=== PATIENT | male | born 1955 | race Caucasian/White ===

== ENCOUNTER 2016-11-17 08:40 | Inpatient (IN) | payer OTHER ==
[~2016-11-17] VITALS: Ht 177.8 cm; Wt 88.5 kg
--- NOTE | 2016-11-17 08:58 | ED GI/GU/ABDOMINAL COMPLAINT ---
History of Present Illness General Chief Complaint: General Adult Stated Complaint: DIZZINESS, N/V Source: patient, family, old records, EMS Exam Limitations: no limitations Vital Signs & Intake/Output Vital Signs & Intake/Output Vital Signs Date Time Temp Pulse Resp B/P Pulse O2 O2 Flow FiO2 Ox Delivery Rate 11/17 1208 97.2 78 18 191/83 98 Room Air 11/17 1000 78 178/99 11/17 0850 95.6 70 16 176/111 98 Room Air Allergies Coded Allergies: Penicillins (UNKNOWN 11/17/16) Reconcile Medications No Known Home Medications Triage Nurses Notes Reviewed? yes Onset: Just prior to arrival Duration: minute(s):, constant, continues in ED Timing: recent history Quality/Severity: sharpness, vomiting Location: epigastric Radiation: no radiation Activities at Onset: none Prior Abdominal Problems: similar symptoms Past Sexual History: Unobtainable at this time Modifying Factors: Improves With: rest. Worsens With: movement. Associated Symptoms: loss of appetite, nausea/vomiting, dizziness HPI: 1 day prior to admission patient complained of right ear pain discomfort like an infection to use drops. Prior to admission patient be acutely dizzy with nausea and retching unable to stand without assistance. There's been no fever chills diarrhea abdominal pain chest pain cough shortness of breath headache dysuria rash bleeding. Past History Travel History Traveled to [place] past 21 day No Medical History Any Pertinent Medical History? none Surgical History Surgical History: non-contributory Psychosocial History What is your primary language Montserratian Family History Hx Contributory? No Review of Systems Review of Systems Constitutional: Reports: no symptoms. EENTM: Reports: no symptoms. Respiratory: Reports: no symptoms. Cardiovascular: Reports: no symptoms. GI: Reports: see HPI, nausea, vomiting. Genitourinary: Reports: no symptoms. Musculoskeletal: Reports: no symptoms. Skin: Reports: no symptoms. Neurological/Psychological: Reports: see HPI. Hematologic/Endocrine: Reports: no symptoms. Immunologic/Allergic: Reports: no symptoms. All Other Systems: Reviewed and Negative Physical Exam Physical Exam General Appearance: well developed/nourished, alert, awake, anxious, severe distress, obese Head: atraumatic, normal appearance Eyes: Bilateral: normal appearance, PERRL, normal inspection, other (nystagmus). Ears, Nose, Throat, Mouth: hearing grossly normal, moist mucous membrane, Tympanic normal Neck: normal inspection, supple, full range of motion, normal alignment Respiratory: normal breath sounds, chest non-tender, no respiratory distress, quiet respiration, lungs clear Cardiovascular: regular rate/rhythm, normal peripheral pulses, norml femoral pulses equa Peripheral Pulses: 4+ carotid (R), 4+ carotid (L), 2+ radial (R), 2+ radial (L) Gastrointestinal: normal bowel sounds, soft, non-tender, no organomegaly Male Genitals: normal genitalia Back: normal inspection, normal range of motion Extremities: normal range of motion, no ligament instability Neurologic/Psych: no motor/sensory deficits, awake, alert, oriented x 3, normal mood/affect, 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 No Severe Sepsis Present: No Septic Shock Present: No Progress Differential Diagnosis: vestibular neuronitis, vertigo Plan of Care: Orders Procedure Date/time Status CBC WITHOUT DIFFERENTIAL 11/18 06 Active Regular Diet 11/17 D Active Pathway - chart 11/17 1414 Active House Staff 11/17 1414 Active Patient Data 11/17 1359 Active XRY-PORTABLE CHEST XRAY 11/17 1347 Active Add-on Test (ER Only) 11/17 1347 Active OXYGEN SETUP (GEN) 11/17 1327 Active Saline Lock 11/[address] in observation 11/17 1327 Active Vital Signs 11/17 1327 Active Activity/Ambulation 11/17 1327 Active Code Status 11/17 1327 Active PARTIAL THROMBOPLASTIN TIME 11/17 0914 Complete PROTHROMBIN TIME 11/17 0914 Complete LIPASE 11/17 0844 Complete COMPREHENSIVE METABOLIC PANEL 11/17 0844 Complete CBC WITHOUT DIFFERENTIAL 11/17 0844 Complete VTE Mechanical Prophylaxis 11/17 UNK Active Intake & Output 11/17 UNK Active Laboratory Tests 11/17/16 0914: Anion Gap 9, Estimated GFR > 60, BUN/Creatinine Ratio 16.7, Glucose 138 H, Calcium 8.6, Total Bilirubin 0.7, AST 16 L, ALT 30, Alkaline Phosphatase 49, Total Protein 6.3, Albumin 3.8, Globulin 2.5, Albumin/Globulin Ratio 1.5, Lipase 67, PT 10.2, INR 0.97, APTT 29, CBC w Diff MAN DIFF ORDERED, RBC 3.67 L, MCV 101.3 H, MCH 35.2 H, RDW 15.9 H, MPV 7.6, Gran % 51.0, Lymphocytes % 46.5, Monocytes % 1.3 L, Eosinophils % 0.8, Basophils % 0.4, Absolute Granulocytes 0.8 L, Segmented Neutrophils 41 L, Band Neutrophils 7 H, Absolute Lymphocytes 0.7 L, Lymphocytes 49, Monocytes 1 L, Absolute Monocytes 0 L, Eosinophils 2, Absolute Eosinophils 0, Absolute Basophils 0, Platelet Estimate DECREASED, Polychromasia 1+, Poikilocytosis 2+, Anisocytosis 1+, Macrocytic Cells 1+, Ovalocytes 1+, PUBS MCHC 34.8 Diagnostic Imaging: Viewed by Me: CT Scan. Discussed w/RAD: CT Scan. Radiology Impression: 1. No acute intracranial pathology. 2. Temporal bones (and internal auditory canals) are unremarkable. Initial ED EKG: none Comments: Despite multiple interventions continues to have dizziness and unable to open eyes. Departure Departure Disposition: STILL A PATIENT Condition: Stable Clinical Impression Primary Impression: Vestibular neuronitis of right ear Referrals: BROOKLYNN WREN MD (PCP/Family) Departure Forms: Customer Survey General Discharge Information Prescriptions: Current Visit Scripts No Known Home Medications Observation Note Spoke With: HANNAH JUNIOR,JARAD Vázquez Physician Advisor Notified: RICKY ELIZABETH DO Place Patient In: Non-ED OBS Care Area Rationale for Observation: My rational for observation is as follows unable to ambulate will need assistance with vertiginous symptomatology control her blood pressure ensure safety medication adjustment. Critical Care Note Critical Care Note Critical Care Time: 30-74 min (45)
[2016-11-17 09:31] LABS: ABSOLUTE BASOPHIL COUNT 0 /CUMM (0.0-0.2); ABSOLUTE EOSINOPHIL COUNT 0 /CUMM (0.0-0.7); ABSOLUTE GRANULOCYTE CT 0.8 /CUMM (1.4-6.5); ABSOLUTE LYMPH COUNT 0.7 /CUMM (1.2-3.4); ABSOLUTE MONOCYTE COUNT 0 /CUMM (0.10-0.60); BASOPHIL % 0.4 % (0.0-2.0); EOSINOPHIL % 0.8 % (0-5); HEMATOCRIT 37.2 % (42-52); MEAN CORPUSCULAR HGB 35.2 PG (27.0-31.0); MEAN CORPUSCULAR HGB CONC 34.8 G/DL (33.0-37.0); MEAN CORPUSCULAR VOLUME 101.3 FL (80.0-94.0); MEAN PLATELET VOLUME 7.6 FL (7.4-10.4); PLATELET COUNT 65 /CUMM (130-400); RBC DISTRIBUTION WIDTH 15.9 % (11.5-14.5); RED BLOOD CELL CT 3.67 /CUMM (4.70-6.10); WHITE BLOOD CELL COUNT 1.6 /CUMM (4.8-10.8)
--- NOTE | 2016-11-17 12:32 | CT SCAN REPORT ---
EXAMINATION: CT HEAD WITHOUT IV CONTRAST CT INTERNAL AUDITORY CANALS WITHOUT IV CONTRAST CLINICAL INFORMATION: Intractable vertigo. Possible vestibular neuritis. COMPARISON: CT of head, 06/20/2009 TECHNIQUE: Noncontrast imaging of the head was performed using standard protocol from the level of the skull base to the vertex. Axial images are presented at 2.5 mm and 5 mm slice thickness. Also, noncontrast imaging was performed through the internal auditory canals/temporal bones using 0.625 mm collimation. Dose length product was 1283 mGy-cm. FINDINGS: Head: The brain parenchyma has normal attenuation with well-preserved verduzco-white matter differentiation. No evidence of acute major vascular territory infarction, hemorrhage, extra axial fluid collection, focal mass effect or midline shift. The ventricles have normal size and configuration. The sulci and basilar cisterns are unremarkable. The cerebellar hemispheres, cerebellar peduncles and brainstem are unremarkable. The calvarium is intact and the visualized paranasal sinuses, mastoid air cells and middle ear cavities are clear. Temporal bones: Cerumen is present within each external auditory canal. The ossicles have normal shape and alignment. The middle ear cavities and aditus ad antrum are well aerated. The otic capsule structures are normal. The cochlea and its modiolus are unremarkable, bilaterally. Normal semicircular canals and vestibular aqueducts are seen, bilaterally. The internal auditory canals are unremarkable. There is no evidence of osseous erosion or skull base lesion. IMPRESSION: 1. No acute intracranial pathology. 2. Temporal bones (and internal auditory canals) are unremarkable.
[2016-11-17 14:04] LABS: PT 10.2 SEC (9.4-12.5); PTT 29 SEC (25-37)
--- NOTE | 2016-11-17 14:21 | RADIOLOGY REPORT ---
EXAMINATION: XR PORTABLE CHEST CLINICAL INFORMATION: Dizziness. COMPARISON: None. TECHNIQUE: Portable AP view of the chest was obtained. FINDINGS: The lungs are hypoinflated, without focal airspace consolidation. No pleural effusions or pneumothoraces are identified. Cardiomediastinal contours are within normal limits. Soft tissues are unremarkable. No acute osseous abnormality is identified. Mild degenerative changes involving the bilateral glenohumeral joints. IMPRESSION: No acute pulmonary process.
--- NOTE | 2016-11-17 15:14 | History & Physical ---
AIDAN BERANRDO MD 11/17/16 1513: General Information and HPI MD Statement: I have seen and personally examined PAULETTE BUTLER and documented this H&P. The patient is a 60 year old M who presented with a patient stated chief complaint of vertigo. Source of Information: patient, family, old records Exam Limitations: no limitations History of Present Illness: Mr. Butler is a 60 year old male with PMH vertigo and arthritis and PSH of 5 bilateral knee operations who presents to the [place] ED with chief complaint of severe dizziness. Patient endorses acute onset of dizziness this morning that caused him to have a controlled fall where he landed on his stomach (he denies head stroke). This dizziness is similar in nature to his prior episode of vertigo that happened about 6 years ago when he was diagnosed with vertigo. Associated symptoms currently include a few day history of right ear pain (he had taken a few drops of otic antibiotics), dizziness whenever his eyes are open, blurry vision, nausea, dry heaving without vomiting, diaphoresis and fatigue. Patient denies recent illness, fever, chills, enlarging lymph nodes, recent weight loss, hearing changes, right ear drainage, tinnitus, headache, chest pain, palpitations, shortness of breath, abdominal pain or changes in stooling/urination. Social history is significant for no current or prior history of smoking, occasional glasses of wine and no history of illicit drug use. 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 Past surgical history is only significant for knee surgery (bilateral). Allergies/Medications Allergies: Coded Allergies: Penicillins (UNKNOWN 11/17/16) Compliance With Home Meds: GOOD Past History Travel History Traveled to [place] past 21 day No Medical History Neurological: vertigo Musculoskeletal: Arthritis (knees) Surgical History Surgical History: non-contributory Past Family/Social History Psychosocial History Where do you live? Home Who Do You Live With? spouse Services at Home: None Primary Language: Hungarian Smoking Status: Never Smoked ETOH Use: occasional use Illicit Drug Use: denies illicit drug use Living Will? unknown Functional Ability ADLs Independent: dressing, eating, toileting, bathing. Ambulation: independent IADLs Independent: shopping, housework, finances, food prep, telephone, transportation , medication admin. Sexual History Sexually Active Yes Employment History Employment Employed Profession/Employer Salesman Review of Systems Review of Systems Constitutional: Reports: diaphoresis, malaise. Denies: chills, fever, unexplained weight loss. EENTM: Reports: blurred vision, ear pain. Denies: ear redness, hearing changes, nasal congestion, throat pain. Cardiovascular: Denies: chest pain, palpitations, syncope. Respiratory: Denies: cough, short of breath, wheezing. GI: Reports: nausea. Denies: abdominal pain, bloating, constipation, diarrhea, distention, changes in stool, vomiting, steatorrhea. Genitourinary: Denies: dysuria. Musculoskeletal: Denies: back pain. Skin: Denies: change in skin color, change in hair/nails. Neurological/Psychological: Reports: headache. Denies: confusion, tremors, weakness. Hematologic/Endocrine: Denies: bruising, bleeding. Immunologic/Allergic: Denies: splenectomy. All Other Systems: Reviewed and Negative Exam & Diagnostic Data Last 24 Hrs of Vital Signs/I&O Vital Signs Date Time Temp Pulse Resp B/P Pulse O2 O2 Flow FiO2 Ox Delivery Rate 11/17 1450 99 Room Air 11/17 1419 97.2 76 18 165/91 95 Room Air 11/17 1208 97.2 78 18 191/83 98 Room Air 11/17 1000 78 178/99 11/17 0850 95.6 70 16 176/111 98 Room Air Intake & Output 11/17 1600 11/17 0800 11/17 0000 Intake Total 1000 Output Total Balance 1000 Intake, IV 1000 Physical Exam General Appearance Alert, Oriented X3, Cooperative, Mild Distress Skin No Rashes, No Significant Lesion HEENT Atraumatic, EOMI, Mucous Membr. moist/pink, +HORIZONTAL NYSTAGMUSM LEFT TO RIGHT Neck Supple, +2 Carotid Pulse wo Bruit Lymphatic Cervical nl Cardiovascular Regular Rate, Normal S1, Normal S2 Lungs Clear to Auscultation, Normal Air Movement Abdomen Normal Bowel Sounds, Soft, No Tenderness, No Hepatospenomegaly, No Masses Neurological Normal Speech, Strength at 5/5 X4 Ext, Normal Tone, Sensation Intact, Cranial Nerves 3-12 NL Extremities No Clubbing, No Cyanosis, No Edema Vascular Pulses Symmetrical Last 24 Hrs of Labs/Shekhar: Laboratory Tests 11/17/16 0914: Anion Gap 9, Estimated GFR > 60, BUN/Creatinine Ratio 16.7, Glucose 138 H, Calcium 8.6, Total Bilirubin 0.7, AST 16 L, ALT 30, Alkaline Phosphatase 49, Total Protein 6.3, Albumin 3.8, Globulin 2.5, Albumin/Globulin Ratio 1.5, Lipase 67, PT 10.2, INR 0.97, APTT 29, CBC w Diff MAN DIFF ORDERED, RBC 3.67 L, MCV 101.3 H, MCH 35.2 H, RDW 15.9 H, MPV 7.6, Gran % 51.0, Lymphocytes % 46.5, Monocytes % 1.3 L, Eosinophils % 0.8, Basophils % 0.4, Absolute Granulocytes 0.8 L, Segmented Neutrophils 41 L, Band Neutrophils 7 H, Absolute Lymphocytes 0.7 L, Lymphocytes 49, Monocytes 1 L, Absolute Monocytes 0 L, Eosinophils 2, Absolute Eosinophils 0, Absolute Basophils 0, Platelet Estimate DECREASED, Polychromasia 1+, Poikilocytosis 2+, Anisocytosis 1+, Macrocytic Cells 1+, Ovalocytes 1+, PUBS MCHC 34.8 Diagnostic Data EKG Results None. CXR Results FINDINGS: The lungs are hypoinflated, without focal airspace consolidation. No pleural effusions or pneumothoraces are identified. Cardiomediastinal contours are within normal limits. Soft tissues are unremarkable. No acute osseous abnormality is identified. Mild degenerative changes involving the bilateral glenohumeral joints. IMPRESSION: No acute pulmonary process. Other Results EXAMINATION: CT HEAD WITHOUT IV CONTRAST CT INTERNAL AUDITORY CANALS WITHOUT IV CONTRAST CLINICAL INFORMATION: Intractable vertigo. Possible vestibular neuritis. COMPARISON: CT of head, 06/20/2009 TECHNIQUE: Noncontrast imaging of the head was performed using standard protocol from the level of the skull base to the vertex. Axial images are presented at 2.5 mm and 5 mm slice thickness. Also, noncontrast imaging was performed through the internal auditory canals/temporal bones using 0.625 mm collimation. Dose length product was 1283 mGy-cm. FINDINGS: Head: The brain parenchyma has normal attenuation with well-preserved verduzco-white matter differentiation. No evidence of acute major vascular territory infarction, hemorrhage, extra axial fluid collection, focal mass effect or midline shift. The ventricles have normal size and configuration. The sulci and basilar cisterns are unremarkable. The cerebellar hemispheres, cerebellar peduncles and brainstem are unremarkable. The calvarium is intact and the visualized paranasal sinuses, mastoid air cells and middle ear cavities are clear. Temporal bones: Cerumen is present within each external auditory canal. The ossicles have normal shape and alignment. The middle ear cavities and aditus ad antrum are well aerated. The otic capsule structures are normal. The cochlea and its modiolus are unremarkable, bilaterally. Normal semicircular canals and vestibular aqueducts are seen, bilaterally. The internal auditory canals are unremarkable. There is no evidence of osseous erosion or skull base lesion. IMPRESSION: 1. No acute intracranial pathology. 2. Temporal bones (and internal auditory canals) are unremarkable. Assessment/Plan Assessment: Mr. Butler is a pleasant 60 year old male with PMH vertigo and knee arthritis who presents with chief complaint of dizziness. Patient reports that this morning, he had a sudden onset of dizziness while walking, associated with nausea, dry heaving and diaphoresis that resulted in a fall. He denies head strike and notes no other preceding symptoms prior to the fall, including palpitations, lightheadedness. Current review of systems is positive for nausea with dry heaving, diaphoresis, lethargy/fatigue, dizziness as long as his eyes are open and 2 day history of right ear pain without drainage or change in hearing. He currently denies fever, chills, tinnitus, sore throat, recent weight loss, chest pain, palpitations, abdominal pain, change in bowel/bladder function or confusion. In the ED: Vital signs showed T 97.2, HR 78, RR 18, BP 191/83 and O2 saturation of 98% on RA. Labs showed pancytopenia/macrocytic anemia with WBC 1.6, 7 bands, H&H 12.9/37.2, MCV 101.3, Plt 65, and unremarkable BEP. INR was 0.97. Head CT was done and showed no acute intracranial pathology, temporal bones (and internal auditory canals) were unremarkable. Patient is admitted to the general medicine floor and the following is the management: 1. Vertigo * Patient given a scopolamine patch, reglan, pepcid, ativan, zofran and 25 mg PO meclizine in the ED * Due to severe nausea and the sensation of spinning, Anderson maneuver not tried * Will consider once these symptoms improve * Continue meclizine 25 mg PO TID PRN for nausea/vomiting/dizziness * Zofran 4mg IV Q6P 2. Pancytopenia/ macrocytic anemia * DDx included MDS, viral-induced, underlying malignancy * Will follow CBC * Will place a heme/onc consult, will f/u recommendations * Hepatitis panels, HIV and utox ordered, f/u results 3. Right ear pain * Patient endorsed 2/10 persistent right ear pain that was similar in nature to prior ear infections * Head CT WNL, no fever, and ear exam limited 2/2 profuse ear wax in auditory canal * Will hold off treatment for now, continue to monitor 4. Uncontrolled blood pressure * BP significantly elevated on admission to 191/83 * Vital signs Q shift * Amlodipine restarted as BP remains elevated 5. Arthritis * For knee pain, will start with tylenol for moderate pain * Vicodin for moderate pain and morphine for severe pain FULL CODE DVTP: ALPS Diet: Regular Mild pain pathway As Ranked By This Provider Problem List: 1. Vestibular neuronitis of right ear Core Measures/Miscellaneous Acute Coronary Syndrome ACS Diagnosis: No Cerebrovascular Accident CVA/TIA Diagnosis: No Congestive Heart Failure CHF Diagnosis: No Venous Thromboembolism VTE Risk Factors: Acute medical illness, Age > 40, Obesity VTE Prophylaxis Ordered Inpt: Mechanical (ALPS/TEDS) No Mech VTE prophylaxis d/t: No contraindications No VTE Pharm Prophylaxis d/t: Platelets below ref range VTE Diagnosis: No VTE Type: NONE VTE Confirmed by (Test): NONE Severe Sepsis Severe Sepsis Present: No Septic Shock Septic Shock Present: No Miscellaneous Documentation Attending Case Discussed With: RIP JUNIOR,KAIDEN Primary Care Physician: BROOKLYNN WREN MD Patient sees these Specialists None. Level of Patient Care: General Medicine ELLIOT WALTER 11/17/16 1802: Attending MD Review Statement Attending Statement Attending MD Statement: examined this patient, discuss w/resident/PA/SHELL MACHINE OPERATOR, agreed w/resident/PA/SHELL MACHINE OPERATOR, reviewed EMR data (avail) Attending Assessment/Plan: Pt seen and examined in ER. presenting with dizziness and vertigo. No PMH but had some rt side ear pain for which he was given antibiotic ear drops few months ago. had cold a few weeks ago but patient denies being sick recently. In ER pt found to have pancytopenia with wbc of 1.6 and platelets of 65. will do workup of pancytopenia,will send hepatitis panel, hiv, tox screen, heme onc consult. will get vit b12 and folate levels. htn- will start on norvasc for now. will f/u on repeat bp. d/w pt the care plan. CINDA JUNIOR,OSVALDOISAACRHIANNA 11/17/161813: Resident Review Statement Resident Statement: examined this patient, discussed with internal communications writer, agreed with internal communications writer, discussed with family, reviewed EMR data (avail), discussed with nursing , discussed with case mgmt, reviewed images, amended to note Other Findings: 60 yo male with pmh of vertigo, arthritis and overweight came to ER due to dizziness and nausea from today morning. While he was standing up from his bed, he had dry heave/dizziness and fell down on the floor on belly. He described the dizziness as the room is spinning, and it continues as long as he opens his eyes. He denies any headache, diplopia, weakness/numbness/tingling sensation. He had similar episode of vertigo about 6 YA, and he was managed with antiemetics at that time which resolved the symptom in 3 days. Otherwise, he c/o Rt. ear pain without fever/hearing loss/ringing sound. He used ear drops for few years. He denies loss of appetite/weight loss or lymphadenopathy. Never smoked, 1-2 romel/beers few times per week. No illicit drugs. Initial V/S: 95.6F SD 70 RR 16 BP 176/111 O2 98% on RA (SBP max 191) On exam, pt was lying on bed, closing his eyes, in mild discomfort, HEENT: horizontal nystagmus (Lt. to Rt.), EOM intact, PERRLA, moist mucosa, neck : no carotid bruit, supple, obese, no cervical LAD, heart: regular rate, normal S1/S2 , no murmurs, Lung: clear, Abdomen: soft, non-tender, normal bowel sound, LE: no edema, normal pulses, neurologic: motor 5/5, cranial nerves grossly intact, [id number] intact. Labs: WBC 1.6, granulocytes 51% lym 46.5%, bandemia 7 Hb/hct 12.9/37.2 MCV 101.3 Plt 65, INR 0.97, Na 140 K 4.3 BUN/Cr 15/0.9, trop < 0.01 Imaging: Head CT / internal auditory canals - 1. No acute intracranial pathology. 2. Temporal bones (and internal auditory canals) are unremarkable. CXR: No acute pulmonary process. 1. Vertigo: BPPV vs. vestibular neuritis vs. hypertensive urgency. Continue BP with po amlodipine, nausea management with IV zofran/antiemetics. 2. HTN: new onset, pt didn't get any meds before, 5mg amlodipine was initiated, check lipid panel in AM. 3. Pancytopenia: no baseline CBC in [facility] record. leukopenia, macrocytic anemia, thrombocytopenia. Will get hematology consult. mechanical DVT ppx with thrombocytopenia. Monitor CBC in AM. check HIV, hepatitis panel, Vit B12/folate. DVT ppx : mechanical, full code.
[2016-11-17] MEDS ORDERED: AMLODIPINE BESYL5 M1 PO (16:10)
[2016-11-17] MEDS ORDERED: ATORVASTATIN CA20 M1 PO (16:52)
[2016-11-17 17:54] VITALS: BP 140/80
--- NOTE | 2016-11-17 18:08 | Admission Certification ---
Admission Certification Certification Statement - As attending physician, I certify that at the time of - admission, based on clinical presentation, severity of - symptoms, need for further diagnostic testing and - therapeutic interventions, and risk of adverse outcomes - without in-hospital treatment, in my clinical assessment, - this patient requires an acute hospital stay for a minimum - of two nights or longer. I have also considered psychsocial - factors such as support system, advanced age, financial - issues, cognitive issues, and failed out-patient treatments, - past re-admission history, safety of patient, and lack of - compliance as applicable. Specific rationale supporting this admission is: new onset pancytopenia with vertigo causing fall.
--- NOTE | 2016-11-17 19:59 | Cons- Hematology ---
General Information and HPI Consulting Request Date of Consult: 11/17/16 Requested By: ELLIOT WALTER MD Reason for Consult: Pancytopenia Source of Information: patient, old records Exam Limitations: no limitations History of Present Illness: Mr. Bullard is a 60-year-old male with no significant medical history presented to the ED with dizziness and nausea for 1 day. Symptoms started this morning and has worsened with nausea. He feels that the room is spinning around and making him nauseated. He denies any emesis. He had similar episode previously. He denies any loss of vision, loss of consciousness, weakness, numbness, or other associated neurological symptoms. He has not been sick recently. He has no issues with his bowels. 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 He has no bleeding. He denies any fever, chills, abdominal pain, shortness of breath, chest pain, weight loss, or new mass. He thinks he has an ear infectious. There is some ringing in his ear. On admission, he was noted to have a WBC of 1.6, Hgb 12.9, Hct 37.2, MCV 101.3, and platelet of 65,000. He had 7% bands. Head CT was unremarkable. Chest x- ray was unremarkable. He was admitted for further manage. Of note, he was noted to have lower WBC (2.3) and platelet (90,000s) back in 2015. He did not have insurance and was not able to get work up done at that time. Allergies/Medications Allergies: Coded Allergies: Penicillins (UNKNOWN 11/17/16) Current Medications: Current Medications Sig/Ayse Start time Last Medication Dose Route Stop Time Status Admin Acetaminophen 650 MG Q6P PRN 11/17 1700 AC PO Acetaminophen/ 1 TAB Q6P PRN 11/17 1700 AC Hydrocodone Bitart PO Amlodipine Besylate 0 .STK-MED ONE 11/17 1630 DC PO Amlodipine Besylate 5 MG DAILY 11/17 1612 AC 11/17 PO 1631 Atorvastatin Calcium 20 MG DAILY 11/18 1000 CAN PO Cyanocobalamin 1,000 MCG DAILY 11/17 1918 AC PO Famotidine 0 .STK-MED ONE 11/17 0858 DC IV Famotidine 20 MG ONCE ONE 11/17 0845 DC 11/17 IV 02/08 0846 0903 Labetalol HCl 10 MG ONCE ONE 11/17 1400 CAN IV 11/17 1401 Lorazepam 0 .STK-MED ONE 11/17 1030 DC .ROUTE Lorazepam 1 MG ONCE ONE 11/17 1015 DC 02/08 IV 11/17 1016 1051 Lorazepam 0 .STK-MED ONE 11/17 0858 DC .ROUTE Lorazepam 1 MG ONCE ONE 11/17 0845 DC /08 IV 11/17 0846 0903 Meclizine HCl 25 MG TID PRN 11/17 1615 AC PO Meclizine HCl 0 .STK-MED ONE 11/17 1030 DC PO Meclizine HCl 25 MG ONCE ONE 11/17 1015 DC / PO 11/17 1016 1051 Metoclopramide HCl 0 .STK-MED ONE 11/17 0858 DC .ROUTE Metoclopramide HCl 10 MG ONCE ONE 11/17 0845 DC / IV 11/17 0846 0903 Morphine Sulfate 2 MG Q4P PRN 11/17 1700 AC IV Ondansetron HCl 4 MG Q6P PRN 11/17 1615 AC IV Ondansetron HCl 4 MG ONCE ONE 11/17 1045 DC /08 IV 11/17 1046 1051 Ondansetron HCl 0 .STK-MED ONE 11/17 1043 DC .ROUTE Scopolamine HBr 1 PAT ONE ONE 11/17 0845 DC 11/17 TOP 11/17 0846 0855 Sodium Chloride 1,000 ML BOLUS ONE 11/17 1045 DC /08 IV 11/17 1144 1051 Sodium Chloride 1,000 ML BOLUS ONE 11/17 0845 DC /08 IV 11/17 0944 0903 Review of Systems Review of Systems Constitutional: Reports: weakness. Denies: chills, fever, unexplained weight loss. EENTM: Denies: blurred vision, double vision, visual changes. Cardiovascular: Denies: chest pain, edema, syncope. Respiratory: Denies: cough, hemoptysis, orthopnea, short of breath, sputum production. GI: Reports: nausea. Denies: abdominal pain, bloating, constipation, diarrhea, distention, melena, bloody stool, changes in stool, vomiting. Genitourinary: Denies: discharge, dysuria, frequency, hematuria. Musculoskeletal: Denies: back pain, joint pain. Skin: Denies: change in skin color, change in hair/nails. Neurological/Psychological: Denies: cognitive dysfunction, confusion. Hematologic/Endocrine: Reports: bruising. Denies: bleeding. Immunologic/Allergic: Denies: lymphadenopathy. All Other Systems: Reviewed and Negative Past History Travel History Traveled to [place] past 21 day No Medical History Blood Transfusion Hx: No Neurological: vertigo EENT: NONE Cardiovascular: NONE Respiratory: NONE Gastrointestinal: NONE Hepatic: NONE Renal: NONE Musculoskeletal: Arthritis (knees) Psychiatric: NONE Endocrine: NONE Blood Disorders: NONE Cancer(s): NONE INTERNAL CONTROL MANAGER/Reproductive: NONE Surgical History Surgical History: non-contributory Psychosocial History Where Do You Live? Home Who Do You Live With? spouse Services at Home: None Primary Language: Belarusian Smoking Status: Never Smoked ETOH Use: occasional use Illicit Drug Use: denies illicit drug use Living Will? unknown Functional Ability ADLs Independent: dressing, eating, toileting, bathing. Ambulation: independent IADLs Independent: shopping, housework, finances, food prep, telephone, transportation , medication admin. Employment History Employment: Employed Profession/Employer: [employer] Exam & Diagnostic Data Vital Signs and I&O Vital Signs Date Time Temp Pulse Resp B/P Pulse O2 O2 Flow FiO2 Ox Delivery Rate 11/17 1754 97.6 64 20 140/80 97 Room Air 11/17 1631 97.2 88 18 161/99 08 1625 88 18 161/99 94 Room Air 11/17 1450 99 Room Air 11/17 1419 97.2 76 18 165/91 95 Room Air 11/17 1208 97.2 78 18 191/83 98 Room Air 11/17 1000 78 178/99 08 0850 95.6 70 16 176/111 98 Room Air Intake & Output 11/17 1600 08 0800 11/17 0000 Intake Total 1000 Output Total Balance 1000 Intake, IV 1000 Physical Exam General Appearance: well developed/nourished, no apparent distress, alert, awake , comfortable Head: atraumatic, normal appearance Eyes: Bilateral: PERRL, EOMI, pale conjunctivae. Ears, Nose, Throat: normal pharynx, normal ENT inspection Neck: normal inspection, supple Respiratory: normal breath sounds, chest non-tender, no respiratory distress Cardiovascular: regular rate/rhythm Gastrointestinal: normal bowel sounds, soft, non-tender, no organomegaly Back: normal inspection Neurologic/Psych: no motor/sensory deficits, awake, alert, oriented x 3 Skin: warm/dry Lymphatic: no anterior cervical virgie Last 48 Hours of Lab Results: Laboratory Tests 11/17 11/17 0914 0844 Chemistry Sodium (137 - 145 mmol/L) 140 Potassium (3.5 - 5.1 mmol/L) 4.3 Chloride (98 - 107 mmol/L) 106 Carbon Dioxide (22 - 30 mmol/L) 25 Anion Gap (5 - 16) 9 BUN (9 - 20 mg/dL) 15 Creatinine (0.7 - 1.2 mg/dL) 0.9 Estimated GFR (>60 ml/min) > 60 BUN/Creatinine Ratio (7 - 25 %) 16.7 Glucose (65 - 99 mg/dL) 138 H Hemoglobin A1c Pending Calcium (8.4 - 10.2 mg/dL) 8.6 Total Bilirubin (0.2 - 1.3 mg/dL) 0.7 AST (17 - 59 U/L) 16 L ALT (21 - 72 U/L) 30 Alkaline Phosphatase (< 127 U/L) 49 Troponin I (<0.11 ng/ml) < 0.01 Total Protein (6.3 - 8.2 g/dL) 6.3 Albumin (3.5 - 5.0 g/dL) 3.8 Globulin (1.9 - 4.2 gm/dL) 2.5 Albumin/Globulin Ratio (1.1 - 2.2 %) 1.5 Lipase (23 - 300 U/L) 67 Vitamin B12 (239 - 931 pg/mL) 225 L Folate (2.76 - 20.0 ng/mL) 11.7 Coagulation PT (9.4 - 12.5 SEC) 10.2 INR (0.90 - 1.17) 0.97 APTT (25 - 37 SEC) 29 Hematology CBC w Diff MAN DIFF ORDERED WBC (4.8 - 10.8 /CUMM) 1.6 L RBC (4.70 - 6.10 /CUMM) 3.67 L Hgb (14.0 - 18.0 G/DL) 12.9 L Hct (42 - 52 %) 37.2 L MCV (80.0 - 94.0 FL) 101.3 H MCH (27.0 - 31.0 PG) 35.2 H RDW (11.5 - 14.5 %) 15.9 H Plt Count (130 - 400 /CUMM) 65 L MPV (7.4 - 10.4 FL) 7.6 Gran % (42.2 - 75.2 %) 51.0 Lymphocytes % (20.5 - 51.1 %) 46.5 Monocytes % (1.7 - 9.3 %) 1.3 L Eosinophils % (0 - 5 %) 0.8 Basophils % (0.0 - 2.0 %) 0.4 Absolute Granulocytes (1.4 - 6.5 /CUMM) 0.8 L Segmented Neutrophils (42.2 - 75.2 %) 41 L Band Neutrophils (0.0 - 5.0 %) 7 H Absolute Lymphocytes (1.2 - 3.4 /CUMM) 0.7 L Lymphocytes (20.5 - 51.1 %) 49 Monocytes (1.7 - 9.3 %) 1 L Absolute Monocytes (0.10 - 0.60 /CUMM) 0 L Eosinophils (0 - 5.0 %) 2 Absolute Eosinophils (0.0 - 0.7 /CUMM) 0 Absolute Basophils (0.0 - 0.2 /CUMM) 0 Platelet Estimate (ADEQUATE) DECREASED Polychromasia 1+ Poikilocytosis 2+ Anisocytosis 1+ Macrocytic Cells 1+ Ovalocytes 1+ PUBS MCHC (33.0 - 37.0 G/DL) 34.8 Serology Hepatitis A IgM Ab (NONREACTIVE) Pending Hep Bs Antigen (NONREACTIVE) Pending Hep B Core IgM Ab Conf (NONREACTIVE) Pending Hepatitis C Antibody (NONREACTIVE) Pending HIV 1&2 Ab Western Blot (NONREACTIVE) NONREACTIVE Toxicology Serum Alcohol (<10 MG/DL) < 10.0 Imaging/Other Studies: CXR 11/17/2016: No acute pulmonary process. Head CT 11/17/2016: No acute pulmonary process. Assessment/Plan Assessment: Mr. Bullard is a 60-year-old male with vertigo who presented to the hospital with vertigo with nasuea. On evaluation, he was noted to have pancytopenia. This pancytopenia is slightly worse as compared to June 2016. Peripheral blood smear revealed decreased WBC and platelet. WBC are mostly bands and hypersegmented neutrophils. His RBC is macrocytic with few ovalocytes and elliptocytes. There are few basophillic stippling. He has no obvious history of medication induced pancytopenia. He is not febrile to suggest infectious etiology. He does use alcohol which may trigger his pancytopenia if he had alcohol recently. Alcohol level was normal. Due to his alcohol usage, he may have nutrition deficiency. Vitamin B12 and foate should be checked. Other option would be copper level. Viral infection may also cause some of his findings. Hepatitis, HIV, EBV, CMV, and [id number]. Ticke-borne disease will be less likely with the season. Underlying marrow pathology is less likely at the moment with the differentials on CBC. Vitamin B12 was noted to be low. He should have this replaced. Vitamin B12 may be given 1000 mcg daily by IV or PO. Recommendations: 1. Check MMA 2. Replete vitamin B12 1000 mcg PO daily (every day) or 1000 mcg IV (daily for 1 week, then 1 every 4 weeks) 3. He may need to have liver and spleen evaluation 4. Consider checking copper level 6. Consider iron studies with ferritin 7. Follow up hepatitis panel, HIV, EBV 8. Daily CBC Problem List: 1. Pancytopenia Other Findings/Comments: Please call [phone] with any questions or concerns. Consult Acknowledgment - Thank you for your consult request.
[2016-11-17 22:24] VITALS: BP 142/80
[2016-11-18 06:02] VITALS: BP 130/70
--- NOTE | 2016-11-18 07:47 | PN- Housestaff ---
See Addendum Subjective Follow-up For: Severe dizziness resulting in fall Pancytopenia Elevated BP Subjective: Patient seen and examined at bedside this AM. He reports he remains extremely dizzy and cannot open his eyes or move much or this greatly exacerbates the dizziness. His dizziness was so severe he was unable to undress out of his street clothes to get into a hospital gown. Review of Systems Constitutional: Denies: chills, fever. EENTM: Reports: blurred vision. Denies: nasal congestion. Cardiovascular: Denies: chest pain, palpitations, syncope. Respiratory: Denies: cough, short of breath, sputum production. Gastrointestinal: Reports: nausea. Denies: abdominal pain, vomiting. Genitourinary: Denies: dysuria. Musculoskeletal: Denies: muscle pain. Skin: Denies: rash. Neurological/Psychological: Reports: headache (Slight, from dizziness). Denies: pre-existing deficit. Hematologic/Endocrine: Denies: bruising, bleeding. Objective Last 24 Hrs of Vital Signs/I&O Vital Signs Date Time Temp Pulse Resp B/P Pulse O2 O2 Flow FiO2 Ox Delivery Rate 11/18 0602 97.7 73 20 130/70 94 Room Air 11/17 2224 98.3 72 20 142/80 93 Room Air 11/17 1754 97.6 64 20 140/80 97 Room Air 11/17 1631 97.2 88 18 161/99 0208 1625 88 18 161/99 94 Room Air 11/17 1450 99 Room Air 11/17 1419 97.2 76 18 165/91 95 Room Air 11/17 1208 97.2 78 18 191/83 98 Room Air 11/17 1000 78 178/99 Intake & Output 11/18 1600 11/18 0800 11/18 0000 Intake Total 480 Output Total Balance 480 Intake, Oral 480 Patient 195 lb Weight Physical Exam General Appearance: Alert, Oriented X3, Cooperative, Mild Distress Other Physical Findings: Skin No Rashes, No Significant Lesion HEENT Atraumatic, EOMI, Mucous Membr. moist/pink, +HORIZONTAL NYSTAGMUSM LEFT TO RIGHT Neck Supple, +2 Carotid Pulse wo Bruit Lymphatic Cervical nl Cardiovascular Regular Rate, Normal S1, Normal S2 Lungs Clear to Auscultation, Normal Air Movement Abdomen Normal Bowel Sounds, Soft, No Tenderness, No Hepatospenomegaly, No Masses Neurological Normal Speech, Strength at 5/5 X4 Ext, Normal Tone, Sensation Intact, Cranial Nerves 3-12 NL Extremities No Clubbing, No Cyanosis, No Edema Vascular Pulses Symmetrical Current Medications: Current Medications Sig/Ayse Start time Last Medication Dose Route Stop Time Status Admin Acetaminophen 650 MG Q6P PRN 11/17 1700 AC PO Acetaminophen/ 1 TAB Q6P PRN 11/17 1700 AC Hydrocodone Bitart PO Amlodipine Besylate 0 .STK-MED ONE 11/17 1630 DC PO Amlodipine Besylate 5 MG DAILY 11/17 1612 AC 11/17 PO 1631 Atorvastatin Calcium 20 MG DAILY 11/18 1000 CAN PO Cyanocobalamin 1,000 MCG DAILY 11/17 1918 AC 11/17 PO 2040 Labetalol HCl 10 MG ONCE ONE 11/17 1400 CAN IV 11/17 1401 Lorazepam 0 .STK-MED ONE 11/17 1030 DC .ROUTE Lorazepam 1 MG ONCE ONE 11/17 1015 DC 11/17 IV 11/17 1016 1051 Meclizine HCl 25 MG TID PRN 11/17 1615 AC PO Meclizine HCl 0 .STK-MED ONE 11/17 1030 DC PO Meclizine HCl 25 MG ONCE ONE 11/17 1015 DC / PO 11/17 1016 1051 Morphine Sulfate 2 MG Q4P PRN 11/17 1700 AC IV Ondansetron HCl 4 MG Q6P PRN 11/17 1615 AC IV Ondansetron HCl 4 MG ONCE ONE 11/17 1045 DC 11/17 IV 11/17 1046 1051 Ondansetron HCl 0 .STK-MED ONE 11/17 1043 DC .ROUTE Sodium Chloride 1,000 ML BOLUS ONE 11/17 1045 DC 11/17 IV 11/17 1144 1051 Sodium Chloride 1,000 ML BOLUS ONE 11/17 0845 DC 11/17 IV 11/17 0944 0903 Last 24 Hrs of Lab/Shekhar Results Last 24 Hrs of Labs/Mics: Laboratory Tests 11/18/16 0837: Serum Copper Pending 11/18/16 0800: Iron Pending, TIBC Pending, % Saturation Pending, Ferritin Pending, Triglycerides Pending, Cholesterol Pending, LDL Cholesterol, Calc Pending, HDL Cholesterol Pending, Cholesterol/HDL Ratio Pending, CBC w Diff Pending, WBC Pending, RBC Pending, Hgb Pending, Hct Pending, MCV Pending, MCH Pending, RDW Pending, Plt Count Pending, MPV Pending, PUBS MCHC Pending 11/17/16 0914: Anion Gap 9, Estimated GFR > 60, BUN/Creatinine Ratio 16.7, Glucose 138 H, Calcium 8.6, Total Bilirubin 0.7, AST 16 L, ALT 30, Alkaline Phosphatase 49, Troponin I < 0.01, Total Protein 6.3, Albumin 3.8, Globulin 2.5, Albumin/ Globulin Ratio 1.5, Lipase 67, Vitamin B12 225 L, Folate 11.7, PT 10.2, INR 0.97, APTT 29, CBC w Diff MAN DIFF ORDERED, RBC 3.67 L, MCV 101.3 H, MCH 35.2 H, RDW 15.9 H, MPV 7.6, Gran % 51.0, Lymphocytes % 46.5, Monocytes % 1.3 L, Eosinophils % 0.8, Basophils % 0.4, Absolute Granulocytes 0.8 L, Segmented Neutrophils 41 L, Band Neutrophils 7 H, Absolute Lymphocytes 0.7 L, Lymphocytes 49, Monocytes 1 L, Absolute Monocytes 0 L, Eosinophils 2, Absolute Eosinophils 0, Absolute Basophils 0, Platelet Estimate DECREASED, Polychromasia 1+, Poikilocytosis 2+, Anisocytosis 1+, Macrocytic Cells 1+, Ovalocytes 1+, PUBS MCHC 34.8, Hepatitis A IgM Ab Pending, Hep Bs Antigen Pending, Hep B Core IgM Ab Conf Pending, Hepatitis C Antibody Pending, HIV 1&2 Ab Western Blot NONREACTIVE, Serum Alcohol < 10.0 Orders Radiology Findings: CXR: IMPRESSION: No acute pulmonary process. Miscellaneous Findings: EXAMINATION: CT HEAD WITHOUT IV CONTRAST CT INTERNAL AUDITORY CANALS WITHOUT IV CONTRAST CLINICAL INFORMATION: Intractable vertigo. Possible vestibular neuritis. COMPARISON: CT of head, 06/20/2009 TECHNIQUE: Noncontrast imaging of the head was performed using standard protocol from the level of the skull base to the vertex. Axial images are presented at 2.5 mm and 5 mm slice thickness. Also, noncontrast imaging was performed through the internal auditory canals/temporal bones using 0.625 mm collimation. Dose length product was 1283 mGy-cm. FINDINGS: Head: The brain parenchyma has normal attenuation with well-preserved verduzco-white matter differentiation. No evidence of acute major vascular territory infarction, hemorrhage, extra axial fluid collection, focal mass effect or midline shift. The ventricles have normal size and configuration. The sulci and basilar cisterns are unremarkable. The cerebellar hemispheres, cerebellar peduncles and brainstem are unremarkable. The calvarium is intact and the visualized paranasal sinuses, mastoid air cells and middle ear cavities are clear. Temporal bones: Cerumen is present within each external auditory canal. The ossicles have normal shape and alignment. The middle ear cavities and aditus ad antrum are well aerated. The otic capsule structures are normal. The cochlea and its modiolus are unremarkable, bilaterally. Normal semicircular canals and vestibular aqueducts are seen, bilaterally. The internal auditory canals are unremarkable. There is no evidence of osseous erosion or skull base lesion. IMPRESSION: 1. No acute intracranial pathology. 2. Temporal bones (and internal auditory canals) are unremarkable. Assessment/Plan Assessment: Mr. Bullard is a pleasant 60 year old male with PMH vertigo and knee arthritis who presents with chief complaint of dizziness. Patient reports that this morning, he had a sudden onset of dizziness while walking, associated with nausea, dry heaving and diaphoresis that resulted in a fall. He denies head strike and notes no other preceding symptoms prior to the fall, including palpitations, lightheadedness. Current review of systems is positive for nausea with dry heaving, diaphoresis, lethargy/fatigue, dizziness as long as his eyes are open and 2 day history of right ear pain without drainage or change in hearing. He currently denies fever, chills, tinnitus, sore throat, recent weight loss, chest pain, palpitations, abdominal pain, change in bowel/bladder function or confusion. In the ED: Vital signs showed T 97.2, HR 78, RR 18, BP 191/83 and O2 saturation of 98% on RA. Labs showed pancytopenia/macrocytic anemia with WBC 1.6, 7 bands, H&H 12.9/37.2, MCV 101.3, Plt 65, and unremarkable BEP. INR was 0.97. Head CT was done and showed no acute intracranial pathology, temporal bones (and internal auditory canals) were unremarkable. Patient is admitted to the general medicine floor and the following is the management: 1. Vertigo * Patient given a scopolamine patch, reglan, pepcid, ativan, zofran and 25 mg PO meclizine in the ED * Due to severe nausea and the sensation of spinning, Anderson maneuver not tried * We have consulted PT today, unable to perform vestibular treatment due to nystagmus in all vestibular testing positions * PT noted impaired functional mobility and notes patient is not safe to return home at this time as he is high risk of falls, PT will continue to work towards home goals * Continue meclizine 25 mg PO TID PRN for nausea/vomiting/dizziness * Zofran 4mg IV Q6P * Hematology/oncology suggests head MRI for further evaluation (rule out stroke, mass), f/u results 2. Pancytopenia/ macrocytic anemia * DDx included MDS, viral-induced, underlying malignancy * Will follow CBC * Will place a heme/onc consult, will f/u recommendations * Hepatitis panel nonreactive, HIV negative, and utox pending, f/u results * MMA pending, copper pending and TIBC shows increased % saturation, otherwise unremarkable * B12 low (patient started on IM B12 daily), folate normal, Vit D level ordered, f/u results * Abdominal US to check liver and spleen, f/u results 3. Right ear pain * Patient endorsed 2/10 persistent right ear pain that was similar in nature to prior ear infections * Head CT WNL, no fever, and ear exam limited 2/2 profuse ear wax in auditory canal * Will hold off treatment for now, continue to monitor 4. Uncontrolled blood pressure * BP significantly elevated on admission to 191/83 * Vital signs Q shift * Amlodipine added to daily regimen, patient seems to have more adequately controlled BP now * Lipid panel checked, WNL 5. Arthritis * For knee pain, will start with tylenol for moderate pain * Vicodin for moderate pain and morphine for severe pain FULL CODE DVTP: ALPS Diet: Regular Mild pain pathway Problem List: 1. Pancytopenia 2. Vestibular neuronitis of right ear Pain Ratin Pain Location: Headache Pain Goal: Pain 4 or less Pain Plan: Morphine for severe pain, vicodin for moderate, tylenol for mild pain. Tomorrow's Labs & Rationales: CBC (monitor pancytopenia)
[2016-11-18 08:51] LABS: ABSOLUTE BASOPHIL COUNT 0 /CUMM (0.0-0.2); ABSOLUTE EOSINOPHIL COUNT 0 /CUMM (0.0-0.7); ABSOLUTE GRANULOCYTE CT 0.6 /CUMM (1.4-6.5); ABSOLUTE LYMPH COUNT 0.9 /CUMM (1.2-3.4); ABSOLUTE MONOCYTE COUNT 0 /CUMM (0.10-0.60); BASOPHIL % 0.8 % (0.0-2.0); EOSINOPHIL % 1.1 % (0-5); HEMATOCRIT 32.7 % (42-52); MEAN CORPUSCULAR HGB 35.6 PG (27.0-31.0); MEAN CORPUSCULAR HGB CONC 34.9 G/DL (33.0-37.0); MEAN CORPUSCULAR VOLUME 101.9 FL (80.0-94.0); MEAN PLATELET VOLUME 7.6 FL (7.4-10.4); RBC DISTRIBUTION WIDTH 15.4 % (11.5-14.5); RED BLOOD CELL CT 3.21 /CUMM (4.70-6.10); WHITE BLOOD CELL COUNT 1.6 /CUMM (4.8-10.8)
[2016-11-18 09:40] LABS: PLATELET COUNT 66 /CUMM (130-400)
--- NOTE | 2016-11-18 10:52 | PN- Hematology ---
Subjective Subjective: He continues to have the vertigo sensation. He denies any new symptoms. Review of Systems: Constitutional: Denies: chills, fever, unexplained weight loss. EENTM: Reports: blurred vision, ear pain. Cardiovascular: Denies: chest pain, palpitations, syncope. Respiratory: Denies: cough, short of breath, wheezing. GI: Reports: nausea. Musculoskeletal: Denies: back pain. Skin: Denies: change in skin color, change in hair/nails. Neurological/Psychological: Reports: dizziness. Hematologic/Endocrine: Denies: bruising, bleeding. Immunologic/Allergic: Denies: splenectomy. All Other Systems: Reviewed and Negative Objective Vital Signs and I&Os Vital Signs Date Time Temp Pulse Resp B/P Pulse O2 O2 Flow FiO2 Ox Delivery Rate 11/18 0602 97.7 73 20 130/70 94 Room Air 11/17 2224 98.3 72 20 142/80 93 Room Air 11/17 1754 97.6 64 20 140/80 97 Room Air 11/17 1631 97.2 88 18 161/99 11/17 1625 88 18 161/99 94 Room Air 11/17 1450 99 Room Air 11/17 1419 97.2 76 18 165/91 95 Room Air 11/17 1208 97.2 78 18 191/83 98 Room Air Intake & Output 11/18 1600 11/18 0800 11/18 0000 11/17 1600 11/17 0800 / 0000 Intake Total 480 1000 Output Total Balance 480 1000 Intake, IV 1000 Intake, Oral 480 Patient 88.451 kg Weight Physical Exam: General Appearance: well developed/nourished, no apparent distress, alert, awake , comfortable Head: atraumatic, normal appearance Eyes: Bilateral: PERRL, EOMI, pale conjunctivae. Rotational nystagmus upon upward gaze. Horizontal nystagmus. Ears, Nose, Throat: normal pharynx, normal ENT inspection Respiratory: normal breath sounds, chest non-tender, no respiratory distress Cardiovascular: regular rate/rhythm Gastrointestinal: normal bowel sounds, soft, non-tender, no organomegaly Back: normal inspection Neurologic/Psych: no motor/sensory deficits, awake, alert, oriented x 3 Skin: warm/dry Current Medications: Current Medications Sig/Ayse Start time Last Medication Dose Route Stop Time Status Admin Acetaminophen 650 MG Q6P PRN 11/17 1700 AC PO Acetaminophen/ 1 TAB Q6P PRN 11/17 1700 AC Hydrocodone Bitart PO Amlodipine Besylate 0 .STK-MED ONE 11/17 1630 DC PO Amlodipine Besylate 5 MG DAILY 11/17 1612 AC 11/17 PO 1631 Atorvastatin Calcium 20 MG DAILY 11/18 1000 CAN PO Cyanocobalamin 1,000 MCG DAILY 11/17 1918 AC 11/17 PO 2040 Labetalol HCl 10 MG ONCE ONE 11/17 1400 CAN IV 11/17 1401 Lorazepam 0 .STK-MED ONE 11/17 1030 DC .ROUTE Lorazepam 1 MG ONCE ONE 11/17 1015 DC 11/17 IV 11/17 1016 1051 Meclizine HCl 25 MG TID PRN 11/17 1615 AC PO Meclizine HCl 0 .STK-MED ONE 11/17 1030 DC PO Meclizine HCl 25 MG ONCE ONE 11/17 1015 DC 11/17 PO 11/17 1016 1051 Morphine Sulfate 2 MG Q4P PRN 11/17 1700 AC IV Ondansetron HCl 4 MG Q6P PRN 11/17 1615 AC IV Ondansetron HCl 4 MG ONCE ONE 11/17 1045 DC 11/17 IV 11/17 1046 1051 Ondansetron HCl 0 .STK-MED ONE 11/17 1043 DC .ROUTE Sodium Chloride 1,000 ML BOLUS ONE 11/17 1045 DC 11/17 IV 11/17 1144 1051 Results Last 24 Hours of Lab Results: Laboratory Tests 11/18 11/18 0837 0800 Chemistry Iron (49 - 181 ug/dL) 144 TIBC (261 - 462 ug/dL) 292 % Saturation (16 - 45 %) 49 H Ferritin (17.9 - 464 ng/mL) Pending Triglycerides (<150 mg/dL) 73 Cholesterol (< 200 MG/DL) 162 LDL Cholesterol, Calc (65 - 129 mg/dL) 90 HDL Cholesterol (40 - 60 mg/dL) 58 Cholesterol/HDL Ratio (0.00 - 4.88 %) 3 Hematology CBC w Diff NO MAN DIFF REQ WBC (4.8 - 10.8 /CUMM) 1.6 L RBC (4.70 - 6.10 /CUMM) 3.21 L Hgb (14.0 - 18.0 G/DL) 11.4 L Hct (42 - 52 %) 32.7 L MCV (80.0 - 94.0 FL) 101.9 H MCH (27.0 - 31.0 PG) 35.6 H RDW (11.5 - 14.5 %) 15.4 H Plt Count (130 - 400 /CUMM) 66 L MPV (7.4 - 10.4 FL) 7.6 Gran % (42.2 - 75.2 %) 39.0 L Lymphocytes % (20.5 - 51.1 %) 56.9 H Monocytes % (1.7 - 9.3 %) 2.2 Eosinophils % (0 - 5 %) 1.1 Basophils % (0.0 - 2.0 %) 0.8 Absolute Granulocytes (1.4 - 6.5 /CUMM) 0.6 L Absolute Lymphocytes (1.2 - 3.4 /CUMM) 0.9 L Absolute Monocytes (0.10 - 0.60 /CUMM) 0 L Absolute Eosinophils (0.0 - 0.7 /CUMM) 0 Absolute Basophils (0.0 - 0.2 /CUMM) 0 PUBS MCHC (33.0 - 37.0 G/DL) 34.9 Toxicology Serum Copper Pending Assessment/Plan Assessment/Recommendations: Mr. Bullard is a 60-year-old male with vertigo who presented to the hospital with vertigo with nasuea. On evaluation, he was noted to have pancytopenia. This pancytopenia is slightly worse as compared to June 2016. Peripheral blood smear revealed decreased WBC and platelet. WBC are mostly bands and hypersegmented neutrophils. His RBC is macrocytic with few ovalocytes and elliptocytes. There are few basophillic stippling. Work up have demonstrated vitamin B12 deficiency. Hepatitis and HIV are negative. Iron studies demonstrated elevated iron and iron saturation. He may have an underlying liver dysfunction. Iron overload is also a potential. He is started on vitamin B12 repletion. He continues to have persistent nystagmus and vertigo. Noncontrasted CT of the head is negative. There is concern for underlying small infarcts given persistent symptoms. MRI may be useful. Recommendations: 1. Follow up MMA, copper 2. Continue vitamin B12 oral repletion 3. Consider MRI brain with contrast 4. He may need hemochromatosis work up as an outpatient Please call [phone] with any questions or concerns. Problem List: 1. Vestibular neuronitis of right ear 2. Pancytopenia
[2016-11-18 14:34] VITALS: BP 170/90
--- NOTE | 2016-11-18 15:52 | ULTRASOUND REPORT ---
EXAMINATION: US ABDOMEN COMPLETE CLINICAL INFORMATION: Hepatosplenomegaly. COMPARISON: None TECHNIQUE: Real-time imaging of the abdominal viscera. FINDINGS: PANCREAS: Pancreas is partially obscured by bowel gas. No pancreatic masses are seen. ABDOMINAL AORTA: Poorly visualized due to bowel gas. INFERIOR VENA CAVA: Poorly visualized due to bowel gas. LIVER: Normal. The liver demonstrates normal size, contour and echogenicity. No focal lesion or intrahepatic biliary duct dilatation. GALLBLADDER: Normal. The gallbladder is physiologically distended without evidence of stones, sludge, polyps, wall thickening or pericholecystic fluid. COMMON BILE DUCT: Normal in caliber measuring 0.4 cm in diameter. RIGHT KIDNEY: Normal. No hydronephrosis. No focal parenchymal lesions. An interpolar echogenic focus measures 5 mm in size likely reflecting a nonobstructing calculus. The kidney measures 9.3 cm in maximum dimension. LEFT KIDNEY: Normal. No hydronephrosis. No renal calculi or focal parenchymal lesions. The kidney measures 11.7 cm in maximum dimension. SPLEEN: The spleen is homogeneous and enlarged. The spleen measures 15.9 cm in maximum dimension. FREE FLUID: None. IMPRESSION: Normal liver size and echotexture. Splenomegaly. Probable small 5 mm nonobstructing mid right renal calculus.
--- NOTE | 2016-11-18 19:38 | MRI REPORT ---
EXAMINATION: MR BRAIN WITHOUT AND WITH CONTRAST CLINICAL INFORMATION: Presumptive diagnosis of vestibular tumor. Question stroke. Persistent vertigo. Horizontal nystagmus. COMPARISON: CT scan of the head 11/17/2016. TECHNIQUE: MRI of the brain was obtained using routine sequences before and after the intravenous administration of 19 mL of OptiMARK. FINDINGS: Patient motion degrades image quality therefore the diagnostic accuracy of this examination is limited. There is no abnormal cerebellopontine angle cistern mass. No abnormal enhancement along the cisternal segments of the 7th and 8th cranial nerves. The labyrinthine structures are not well assessed due to the extent of patient motion. Grossly there is no abnormal petrous temporal bone enhancement. No mastoid or middle ear effusion. There are a few scattered nonspecific foci of T2 FLAIR signal hyperintensity within the periventricular white matter. No acute territorial infarct. Intracranial vascular flow voids are grossly maintained. There is no intracranial mass effect or midline shift. No abnormal extra-axial collection. Lateral and third ventricles are normal. No hydrocephalus. Midline structures including the cervicomedullary junction are normal. Bone marrow signal intensity is normal. Postcontrast images reveal no abnormal parenchymal or leptomeningeal enhancement. IMPRESSION: There are a few chronic small vessel ischemic changes within the periventricular white matter. No evidence of acute territorial infarct. Dedicated high-resolution imaging through the temporal bones is degraded by patient motion. Grossly there is no cerebellopontine angle cistern mass or enhancement.
[2016-11-18 21:47] VITALS: BP 136/84
[2016-11-19 06:36] VITALS: BP 130/80
--- NOTE | 2016-11-19 07:26 | PN- Housestaff ---
Subjective Follow-up For: Dizziness Nystagmus ?BPPV Subjective: Patient seen and examined at bedside this AM. He continues to endorse dizziness, though he is able to open eyes more and ambulate slightly better. Review of Systems Constitutional: Reports: malaise. Denies: chills, fever. EENTM: Reports: blurred vision. Denies: hearing changes. Cardiovascular: Denies: chest pain, palpitations. Respiratory: Denies: cough, short of breath. Gastrointestinal: Denies: abdominal pain. Genitourinary: Denies: dysuria. Musculoskeletal: Denies: back pain. Skin: Denies: lesions. Neurological/Psychological: Denies: headache, tingling. Hematologic/Endocrine: Denies: bruising, bleeding. Objective Last 24 Hrs of Vital Signs/I&O Vital Signs Date Time Temp Pulse Resp B/P Pulse O2 O2 Flow FiO2 Ox Delivery Rate 11/19 0859 67 130/80 11/19 0636 97.5 67 20 130/80 93 Room Air 11/18 2147 98.2 75 20 136/84 94 11/18 1444 160/100 11/18 1434 97.9 71 20 170/90 95 Intake & Output 11/19 1600 11/19 0800 11/19 0000 Intake Total 0 250 Output Total 0 Balance 0 250 Intake, IV 0 Intake, Oral 0 250 Number 0 Bowel Movements Output, Urine 0 Patient 195 lb Weight Physical Exam General Appearance: Alert, Oriented X3, Cooperative Skin: No Significant Lesion HEENT: Atraumatic, Nystagmus still appreciable Neck: Supple Cardiovascular: Regular Rate, Normal S1, Normal S2 Lungs: Normal Air Movement Abdomen: Normal Bowel Sounds, Soft, No Tenderness Neurological: Normal Speech, Normal Tone Extremities: No Clubbing, No Cyanosis, No Edema Current Medications: Current Medications Sig/Ayse Start time Last Medication Dose Route Stop Time Status Admin Acetaminophen 325 MG .STK-MED ONE 11/18 2049 DC PO 11/18 2050 Acetaminophen 650 MG .STK-MED ONE 11/18 2046 DC PO 11/18 2047 Acetaminophen 650 MG Q6P PRN 11/17 1699 AC 11/18 PO 2049 Acetaminophen/ 1 TAB Q6P PRN 11/17 1699 AC 11/18 Hydrocodone Bitart PO 1703 Alprazolam 0.25 MG ONCE ONE 11/19 929 DC 11/19 PO 02/10 0931 0936 Amlodipine Besylate 5 MG ONCE ONE 11/18 1430 DC 11/18 PO 11/18 1431 1444 Amlodipine Besylate 5 MG DAILY 11/17 1612 AC 11/19 PO 0859 Cyanocobalamin 1,000 MCG DAILY 11/18 1120 AC 11/19 IM 0859 Lisinopril 10 MG DAILY 11/18 1430 CAN PO Meclizine HCl 25 MG TID PRN 11/17 1615 AC 11/19 PO 0859 Morphine Sulfate 2 MG Q4P PRN 11/17 1700 AC IV Ondansetron HCl 4 MG Q6P PRN 11/17 1615 AC IV Patient Medication 1 ED .STK-MED ONE 11/19 1340 DC Teaching ED 11/19 1341 Thiamine HCl 100 MG ONCE ONE 11/19 1130 DC 11/19 Sodium Chloride 100 ML IV 11/19 1159 1242 Thiamine HCl 100 MG ONCE ONE 11/18 1345 DC 11/18 Sodium Chloride 100 ML IV 11/18 1356 1445 Assessment/Plan Assessment: Mr. Bullard is a pleasant 60 year old male with PMH vertigo and knee arthritis who presents with chief complaint of dizziness. Patient reports that this morning, he had a sudden onset of dizziness while walking, associated with nausea, dry heaving and diaphoresis that resulted in a fall. He denies head strike and notes no other preceding symptoms prior to the fall, including palpitations, lightheadedness. Current review of systems is positive for nausea with dry heaving, diaphoresis, lethargy/fatigue, dizziness as long as his eyes are open and 2 day history of right ear pain without drainage or change in hearing. He currently denies fever, chills, tinnitus, sore throat, recent weight loss, chest pain, palpitations, abdominal pain, change in bowel/bladder function or confusion. In the ED: Vital signs showed T 97.2, HR 78, RR 18, BP 191/83 and O2 saturation of 98% on RA. Labs showed pancytopenia/macrocytic anemia with WBC 1.6, 7 bands, H&H 12.9/37.2, MCV 101.3, Plt 65, and unremarkable BEP. INR was 0.97. Head CT was done and showed no acute intracranial pathology, temporal bones (and internal auditory canals) were unremarkable. Patient is admitted to the general medicine floor and the following is the management: 1. Recurrent, labyrinthine vertig * Patient given a scopolamine patch, reglan, pepcid, ativan, zofran and 25 mg PO meclizine in the ED * Due to severe nausea and the sensation of spinning, Anderson maneuver not tried * We have consulted PT today, unable to perform vestibular treatment due to nystagmus in all vestibular testing positions * PT noted impaired functional mobility secondary to dizziness, as dizziness improves so does his gait * Continue meclizine 25 mg PO TID PRN for nausea/vomiting/dizziness * Zofran 4mg IV Q6P * MRI head done and shows no acute intracranial pathology * Neuro evaluated patient today and suggest symptoms are all suggestive of labrinthine vertigo, continue meclizine, consider vestibular rehab * Patient unwilling to have rehab at this time as he is self-pay * Patient to be given a prescription for a rolling walker to use at home when dizzy 2. Pancytopenia/ macrocytic anemia * DDx included MDS, viral-induced, underlying malignancy * Will follow CBC * Heme/onc consult appreciated, will f/u recommendations * Hepatitis panel nonreactive, HIV negative, and utox pending, f/u results * MMA pending, copper pending and TIBC shows increased % saturation, otherwise unremarkable * B12 low (patient started on IM B12 daily), folate normal, Vit D level normal * Patient to be sent home with a prescription for thiamine and B12 * Abdominal US to check liver and spleen, shows splenomegaly, to follow up with Hemeonc after discharge for continued care of these issues 3. Right ear pain * Patient endorsed 2/10 persistent right ear pain that was similar in nature to prior ear infections * Head CT WNL, no fever, and ear exam limited 2/2 profuse ear wax in auditory canal * Will hold off treatment for now, continue to monitor 4. Uncontrolled blood pressure * BP significantly elevated on admission to 191/83 * Vital signs Q shift * Amlodipine added to daily regimen, patient seems to have more adequately controlled BP now, will discharge on amlodipine * Lipid panel checked, WNL 5. Arthritis * For knee pain, will start with tylenol for moderate pain * Vicodin for moderate pain and morphine for severe pain FULL CODE DVTP: ALPS Diet: Regular Mild pain pathway Problem List: 1. Vestibular neuronitis of right ear 2. Pancytopenia Pain Ratin Pain Location: n/a Pain Goal: Remain pain free Pain Plan: mild pain pathway Tomorrow's Labs & Rationales: None.
[2016-11-19 08:59] VITALS: BP 130/80
--- NOTE | 2016-11-19 09:07 | PN- Hematology ---
Subjective Subjective: He continues to have vertigo sensation. He denies any new symptoms. Review of Systems: Constitutional: Denies: chills, fever. EENTM: Reports: blurred vision, ear pain. Cardiovascular: Denies: chest pain, palpitations, syncope. Respiratory: Denies: cough, short of breath, wheezing. GI: Reports: nausea. Neurological/Psychological: Reports: dizziness. Hematologic/Endocrine: Denies: bruising, bleeding. All Other Systems: Reviewed and Negative Objective Vital Signs and I&Os Vital Signs Date Time Temp Pulse Resp B/P Pulse O2 O2 Flow FiO2 Ox Delivery Rate 11/19 0536 97.5 67 20 130/80 93 Room Air 11/18 2147 98.2 75 20 136/84 94 11/18 1444 160/100 11/18 1434 97.9 71 20 170/90 95 11/18 1053 73 130/70 Intake & Output 11/19 1600 11/19 0800 11/19 0000 11/18 1600 11/18 0800 11/18 0000 Intake Total 0 250 120 480 Output Total 0 Balance 0 250 120 480 Intake, IV 0 Intake, Oral 0 250 120 480 Number 0 0 Bowel Movements Output, Urine 0 Patient 88.451 kg Weight Physical Exam: General Appearance: well developed/nourished, no apparent distress, alert, awake , comfortable Head: atraumatic, normal appearance Eyes: Bilateral: PERRL, EOMI, pale conjunctivae. Horizontal nystagmus. Ears, Nose, Throat: normal pharynx, normal ENT inspection Respiratory: normal breath sounds, chest non-tender, no respiratory distress Cardiovascular: regular rate/rhythm Gastrointestinal: normal bowel sounds, soft, non-tender, no organomegaly Back: normal inspection Neurologic/Psych: no motor/sensory deficits, awake, alert, oriented x 3. Skin: warm/dry Current Medications: Current Medications Sig/Ayse Start time Last Medication Dose Route Stop Time Status Admin Acetaminophen 325 MG .STK-MED ONE 11/18 2049 DC PO 11/18 2050 Acetaminophen 650 MG .STK-MED ONE 11/18 2046 DC PO 11/18 2047 Acetaminophen 650 MG Q6P PRN 11/17 1699 AC 11/18 PO 2049 Acetaminophen/ 1 TAB Q6P PRN 11/17 1699 AC 11/18 Hydrocodone Bitart PO 1703 Amlodipine Besylate 5 MG ONCE ONE 11/18 1430 DC 11/18 PO 11/18 1431 1444 Amlodipine Besylate 5 MG DAILY 11/17 1612 AC 11/18 PO 1053 Cyanocobalamin 1,000 MCG DAILY 11/18 1120 AC 11/18 IM 1354 Cyanocobalamin 1,000 MCG DAILY 11/17 1918 DC 11/18 PO 1052 Lisinopril 10 MG DAILY 11/18 1430 CAN PO Meclizine HCl 25 MG TID PRN 11/17 1615 AC 11/18 PO 1052 Morphine Sulfate 2 MG Q4P PRN 11/17 1700 AC IV Ondansetron HCl 4 MG Q6P PRN 11/17 1615 AC IV Patient Medication 1 ED .STK-MED ONE 11/18 1333 DC Teaching ED 11/18 1334 Thiamine HCl 100 MG ONCE ONE 11/18 1345 DC 11/18 Sodium Chloride 100 ML IV 11/18 1356 1445 Results Recent Imaging Studies: MRI brain 11/18/2016: There are a few chronic small vessel ischemic changes within the periventricular white matter. No evidence of acute territorial infarct. Dedicated high- resolution imaging through the temporal bones is degraded by patient motion. Grossly there is no cerebellopontine angle cistern mass or enhancement. US 11/18/2016: Normal liver size and echotexture. Splenomegaly. Probable small 5 mm nonobstructing mid right renal calculus. Assessment/Plan Assessment/Recommendations: Mr. Bullard is a 60-year-old male with vertigo who presented to the hospital with vertigo with nasuea. On evaluation, he was noted to have pancytopenia. This pancytopenia is slightly worse as compared to June 2016. Peripheral blood smear revealed decreased WBC and platelet. WBC are mostly bands and hypersegmented neutrophils. His RBC is macrocytic with few ovalocytes and elliptocytes. There are few basophillic stippling. Work up have demonstrated vitamin B12 deficiency. Hepatitis and HIV are negative. Iron studies demonstrated elevated iron and iron saturation. He is started on vitamin B12 repletion. MRI brain is negative. US of abdomen demonstrate splenomegaly. He will need to be evaluation as outpatient for the splenomegaly. He may need flow cytometry and SPEP. Further work up with PET may be needed depending on findings. Bone marrow biopsy may also be needed depending on response with vitamin B12. Recommendations: 1. Follow up MMA, copper levels 2. Continue vitamin B12 oral repletion 3. He may need hemochromatosis work up as an outpatient 4. Follow up as outpatient Please call [phone] with any questions or concerns. Problem List: 1. Pancytopenia 2. Vestibular neuronitis of right ear
--- NOTE | 2016-11-19 12:56 | Cons- Neurology ---
General Information and HPI Consulting Request Date of Consult: 11/19/16 Requested By: ELLIOT WALTER MD History of Present Illness: 60-year-old male awakened for 3 days ago with sudden vertigo followed by nausea and vomiting. Symptoms have diminished since his initial presentation however he still is intermittently vertiginous, particularly with change of position. He denies any associated dysarthria, dysphagia or appendicular symptoms. He will admit to a transient bout of similar symptomatology in 2010, lasting several days. There has been no recent head trauma or upper respiratory infection. He has noted some vague discomfort in the right ear over the past several days. Allergies/Medications Allergies: Coded Allergies: Penicillins (UNKNOWN 11/17/16) Review of Systems Review of Systems: Positive for vertigo, nausea and vomiting. There has been no recent fever, chills, rash, headache, diplopia, dysarthria, dysphagia, chest pain, short shortness of breath, hemoptysis or bleeding disturbance Past History Travel History Traveled to [place] past 21 day No Medical History Blood Transfusion Hx: No Neurological: vertigo EENT: NONE Cardiovascular: NONE Respiratory: NONE Gastrointestinal: NONE Hepatic: NONE Renal: NONE Musculoskeletal: Arthritis (knees) Psychiatric: NONE Endocrine: NONE Blood Disorders: NONE Cancer(s): NONE SHIRT CREASER/Reproductive: NONE Surgical History Surgical History: non-contributory Psychosocial History Where Do You Live? Home Who Do You Live With? spouse Services at Home: None Primary Language: Angolan Smoking Status: Never Smoked ETOH Use: occasional use Illicit Drug Use: denies illicit drug use Living Will? unknown Functional Ability ADLs Independent: dressing, eating, toileting, bathing. Ambulation: independent IADLs Independent: shopping, housework, finances, food prep, telephone, transportation , medication admin. 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 Higher cortical function was intact. Speech was fluent. The head was normocephalic and atraumatic. Pupils were equal. Extraocular movements were full. There was right beating horizontal nystagmus both on right lateral gaze and on upgaze. Facial strength and sensation was intact. Hearing was normal. Tongue was midline. Motor examination showed normal tone, bulk and strength throughout. There was no drift of the upper extremities. Deep tendon reflexes were symmetric. Plantar responses were flexor. Fine finger movements and rapid alternating movements were performed normally. There was no ataxia [id number] testing. He ambulated independently in the room Assessment/Plan Assessment: Mr. Bullard presents with recurrent, labyrinthine vertigo marked by acute nausea , vomiting, vertigo and right beating horizontal nystagmus. His MRI was nondiagnostic. Symptoms would not reflect stroke syndrome. Recommendations: The patient may be treated symptomatically with meclizine. Should symptoms fail to resolve over the next several days, he would be a good candidate for vestibular rehabilitation and performance of the Anderson or Semont maneuver. From our neurological standpoint, he may be discharged home. Please feel free to call with any further questions. Consult Acknowledgment - Thank you for your consult request.
--- NOTE | 2016-11-19 14:02 | PN- Att Addend ---
Attending MD Review Statement Attending Statement Attending MD Statement: examined this patient, discuss w/resident/PA/SUPPORT GROUP MANAGER, agreed w/resident/PA/SUPPORT GROUP MANAGER, reviewed EMR data (avail), discussed w/nursing, discussed w/ case mgmt Attending Assessment/Plan: pt seen and examined at bedside. still having dizziness though the nystagmus is getting better but pt sill very unstable with walking . will get PT to see him again today. Appreciated neurology input and recommendations. Will get ENT to see him given his h/o rt ear infection and recent rt ear pain and nystagmus. Cont with iv thiamine and IM vit b12 supplementation. d/w pt the care plan. when more steady with walking will dc pt on oral b12 and thiamine.
[2016-11-19] MEDS ORDERED: MECLIZINE HCL25 MG PO (14:08)
--- NOTE | 2016-11-19 14:10 | Patient Discharge Instructions ---
Discharge Instructions General Discharge Information You were seen/treated for: Dizziness/vertigo Special Instructions: Please follow up with your PCP within 7 days of discharge. Please use your rolling walker to ambulate. Please Follow up with your neurologist (Dr. Rosas) within 7 days of discharge for continued care. Please take all medications as directed. PLEASE FOLLOW UP WITH DR. GEORGE SHARIF WITHIN 2 WEEKS OF DISCHARGE. Diet Recommended Diet: Heart Healthy Activity Activity Self Limited: Yes Acute Coronary Syndrome Inclusion Criteria At DC or during hospital stay patient has or had the following: ACS DIAGNOSIS No Discharge Core Measures Meds if any: Prescribed or Continued at Discharge Meds if any: NOT Prescribed or Continued at Discharge Congestive Heart Failure Inclusion Criteria At DC or during hospital stay patient has or had the following: CHF DIAGNOSIS No Discharge Core Measures Meds if any: Prescribed or Continued at Discharge Meds if any: NOT Prescribed or Continued at Discharge Cerebrovascular accident Inclusion Criteria At DC or during hospital stay patient has or had the following: CVA/TIA Diagnosis No Discharge Core Measures Meds if any: Prescribed or Continued at Discharge Meds if any: NOT Prescribed or Continued at Discharge Venous thromboembolism Inclusion Criteria VTE Diagnosis No VTE Type NONE VTE Confirmed by (Test) NONE Discharge Core Measures - Per Current guidelines, there needs to be overlap - treatment for the first 5 days of Warfarin therapy. - If discharged on Warfarin prior to 5 days of - overlap therapy, the patient will need to be - assessed for post discharge needs including - *Post discharge parental anticoagulation - *Warfarin and/or parental anticoagulation education - *Follow up date to check INR post discharge At least 5 days overlap therapy as Inpatient No Meds if any: Prescribed or Continued at Discharge Note: Overlap Therapy is Warfarin and Anticoagulant Meds if any: NOT Prescribed or Continued at Discharge
[2016-11-19] MEDS ORDERED: VITAMIN B122500 MC1 PO (14:13)
[2016-11-19] MEDS ORDERED: AMLODIPINE BESYL5 M1 PO (14:13)
[2016-11-19] MEDS ORDERED: B-1100 MG PO (14:13)
--- NOTE | 2016-11-19 15:48 | Discharge Summary ---
Visit Information Visit Dates Admission Date: 11/19/16 Discharge Date: 11/19/16 Hospital Course Course Attending Physician: JOSE ANGEL JUNIOR,ELLIOT May Primary Care Physician: BROOKLYNN WREN MD Consulting Request: 1 Consulting Specialty: Neurology Consulting Physician: Dr. Bose Reason for Consult: Vertigo Consulting Request: 2 Consulting Specialty: Hematology/Oncology Consulting Physician: Dr. Calero Sharif [facility] Course: Mr. Bullard is a pleasant 60 year old male with PMH vertigo and knee arthritis who presents with chief complaint of dizziness. Patient reports that this morning, he had a sudden onset of dizziness while walking, associated with nausea, dry heaving and diaphoresis that resulted in a fall. He denies head strike and notes no other preceding symptoms prior to the fall, including palpitations, lightheadedness. Current review of systems is positive for nausea with dry heaving, diaphoresis, lethargy/fatigue, dizziness as long as his eyes are open and 2 day history of right ear pain without drainage or change in hearing. He currently denies fever, chills, tinnitus, sore throat, recent weight loss, chest pain, palpitations, abdominal pain, change in bowel/bladder function or confusion. In the ED: Vital signs showed T 97.2, HR 78, RR 18, BP 191/83 and O2 saturation of 98% on RA. Labs showed pancytopenia/macrocytic anemia with WBC 1.6, 7 bands, H&H 12.9/37.2, MCV 101.3, Plt 65, and unremarkable BEP. INR was 0.97. Head CT was done and showed no acute intracranial pathology, temporal bones (and internal auditory canals) were unremarkable. Physical exam showed: General Appearance: Alert, Oriented X3, Cooperative, Mild Distress Skin: No Rashes, No Significant Lesion HEENT: Atraumatic, EOMI, Mucous Membr. moist/pink, +HORIZONTAL NYSTAGMUSM LEFT TO RIGHT Neck: Supple, +2 Carotid Pulse wo Bruit Lymphatic: Cervical nl Cardiovascular: Regular Rate, Normal S1, Normal S2 Lungs: Clear to Auscultation, Normal Air Movement Abdomen: Normal Bowel Sounds, Soft, No Tenderness, No Hepatospenomegaly, No Masses Neurological: Normal Speech, Strength at 5/5 X4 Ext, Normal Tone, Sensation Intact, Cranial Nerves 3-12 NL Extremities: No Clubbing, No Cyanosis, No Edema Vascular: Pulses Symmetrical Patient was admitted to the general medicine floor and the following was the management: 1. Recurrent, labyrinthine vertigo: Due to patient's history of BPPV about 6 years ago, vertigo was the highest on our differential. Mr. Bullard was given a scopolamine patch, reglan, pepcid, ativan, zofran and 25 mg PO meclizine in the ED. Patient was admitted to the general medicine floor and started on meclizine 25 mg PO TID PRN for nausea/vomiting/dizziness and zofran was added as anti- emetic. Physical therapy was consulted for Anderson maneuver, but due to positive nystagmus in all vestibular testing positions, this maneuver was unable to be done. PT did however notice severe imbalance in ambulation due to dizziness and did not clear patient for home; they required patient to use a rolling walker for ambulation. Due to no improvement in symptoms by the 2nd day of admission, he was placed from observation to admission and a head MRI was done. Head MRI showed no acute intracranial pathology. At that time neurology was consulted and Dr. Bose suggested continuing symptomatic treatment and consideration for vestibular rehabilitation. However, due to the fact that the patient was self- pay, he refused home physical therapy or rehab after discharge. He did agree to a rolling-walker at home. His nystagmus improved gradually and patient was discharged with a prescription for meclizine. He should follow up with his PCP and neurologist within 1 week of discharge for continued care and should not drive while dizzy. 2. Pancytopenia/ macrocytic anemia: Differential for this on admission included MDS, viral-induced and underlying malignancy. Hematology/oncology was consulted and Dr. Sharif suggested repleting Vitamin B12 as it was low, checking MMA, liver/spleen US, Cu levels, iron studies, hepatitis panel, HIV, EBV and following daily CBC. Hepatitis panel nonreactive, HIV negative, UTox unrevealing , iron panel showed slightly elevated % saturation but was otherwise unremarkable, normal folate, normal B12 and an abdominal US that showed splenomegaly without hepatomegaly. The rest of the studies were not returned by the time of discharge and Dr. Sharif suggested potential workup for hemochromotosis as an outpatient. Patient was discharged with Vitamin B12, thiamine and instructions to follow up with Dr. Sharif within 1 week of discharge for further workup. 3. Uncontrolled Blood Pressure: Patient was noted to have significantly elevated BP on admission to 191/83. Vital signs were done every shift and patient was noted to remain hypertensive. Amlodipine 5 mg PO daily was added to his daily regimen and his blood pressure remained adequate with this intervention. Patient was discharged on this medication and should have close monitoring of his BP by his PCP. 4. Arthritis: Patient wad given tylenol for mild pain, vicodin for moderate pain and morphine for severe pain. 5. Code status: FULL 6. DVT Prophylaxis: ALPS Complications: None. Allergies: Coded Allergies: Penicillins (UNKNOWN 11/17/16) Significant Procedures: EXAMINATION: CT HEAD WITHOUT IV CONTRAST CT INTERNAL AUDITORY CANALS WITHOUT IV CONTRAST CLINICAL INFORMATION: Intractable vertigo. Possible vestibular neuritis. COMPARISON: CT of head, 06/20/2009 TECHNIQUE: Noncontrast imaging of the head was performed using standard protocol from the level of the skull base to the vertex. Axial images are presented at 2.5 mm and 5 mm slice thickness. Also, noncontrast imaging was performed through the internal auditory canals/temporal bones using 0.625 mm collimation. Dose length product was 1283 mGy-cm. FINDINGS: Head: The brain parenchyma has normal attenuation with well-preserved verduzco-white matter differentiation. No evidence of acute major vascular territory infarction, hemorrhage, extra axial fluid collection, focal mass effect or midline shift. The ventricles have normal size and configuration. The sulci and basilar cisterns are unremarkable. The cerebellar hemispheres, cerebellar peduncles and brainstem are unremarkable. The calvarium is intact and the visualized paranasal sinuses, mastoid air cells and middle ear cavities are clear. Temporal bones: Cerumen is present within each external auditory canal. The ossicles have normal shape and alignment. The middle ear cavities and aditus ad antrum are well aerated. The otic capsule structures are normal. The cochlea and its modiolus are unremarkable, bilaterally. Normal semicircular canals and vestibular aqueducts are seen, bilaterally. The internal auditory canals are unremarkable. There is no evidence of osseous erosion or skull base lesion. IMPRESSION: 1. No acute intracranial pathology. 2. Temporal bones (and internal auditory canals) are unremarkable. CXR: IMPRESSION: No acute pulmonary process. EXAMINATION: MR BRAIN WITHOUT AND WITH CONTRAST CLINICAL INFORMATION: Presumptive diagnosis of vestibular tumor. Question stroke. Persistent vertigo. Horizontal nystagmus. COMPARISON: CT scan of the head 11/17/2016. TECHNIQUE: MRI of the brain was obtained using routine sequences before and after the intravenous administration of 19 mL of OptiMARK. FINDINGS: Patient motion degrades image quality therefore the diagnostic accuracy of this examination is limited. There is no abnormal cerebellopontine angle cistern mass. No abnormal enhancement along the cisternal segments of the 7th and 8th cranial nerves. The labyrinthine structures are not well assessed due to the extent of patient motion. Grossly there is no abnormal petrous temporal bone enhancement. No mastoid or middle ear effusion. There are a few scattered nonspecific foci of T2 FLAIR signal hyperintensity within the periventricular white matter. No acute territorial infarct. Intracranial vascular flow voids are grossly maintained. There is no intracranial mass effect or midline shift. No abnormal extra-axial collection. Lateral and third ventricles are normal. No hydrocephalus. Midline structures including the cervicomedullary junction are normal. Bone marrow signal intensity is normal. Postcontrast images reveal no abnormal parenchymal or leptomeningeal enhancement. IMPRESSION: There are a few chronic small vessel ischemic changes within the periventricular white matter. No evidence of acute territorial infarct. Dedicated high-resolution imaging through the temporal bones is degraded by patient motion. Grossly there is no cerebellopontine angle cistern mass or enhancement. EXAMINATION: US ABDOMEN COMPLETE CLINICAL INFORMATION: Hepatosplenomegaly. COMPARISON: None TECHNIQUE: Real-time imaging of the abdominal viscera. FINDINGS: PANCREAS: Pancreas is partially obscured by bowel gas. No pancreatic masses are seen. ABDOMINAL AORTA: Poorly visualized due to bowel gas. INFERIOR VENA CAVA: Poorly visualized due to bowel gas. LIVER: Normal. The liver demonstrates normal size, contour and echogenicity. No focal lesion or intrahepatic biliary duct dilatation. GALLBLADDER: Normal. The gallbladder is physiologically distended without evidence of stones, sludge, polyps, wall thickening or pericholecystic fluid. COMMON BILE DUCT: Normal in caliber measuring 0.4 cm in diameter. RIGHT KIDNEY: Normal. No hydronephrosis. No focal parenchymal lesions. An interpolar echogenic focus measures 5 mm in size likely reflecting a nonobstructing calculus. The kidney measures 9.3 cm in maximum dimension. LEFT KIDNEY: Normal. No hydronephrosis. No renal calculi or focal parenchymal lesions. The kidney measures 11.7 cm in maximum dimension. SPLEEN: The spleen is homogeneous and enlarged. The spleen measures 15.9 cm in maximum dimension. FREE FLUID: None. IMPRESSION: Normal liver size and echotexture. Splenomegaly. Probable small 5 mm nonobstructing mid right renal calculus. Disposition Summary Disposition Principal Diagnosis: Labyrinthine vertigo Acute nausea, vomiting, vertigo and right beating horizontal nystagmus Additional Diagnosis: High blood pressure Pancytopenia with macrocytic anemia Arthritis Discharge Disposition: home or self care Discharge Instructions General Discharge Information Code Status: Full Code Patient's Diet: Heart healthy diet. Patient's Activity: Self-limited, with walker during dizzy episodes. Follow-Up Instructions/Appts: Please follow up with your PCP within 7 days of discharge. Please use your rolling walker to ambulate. Please Follow up with your neurologist (Dr. Wren) within 7 days of discharge for continued care. Please take all medications as directed. PLEASE FOLLOW UP WITH DR. GEORGE SHARIF WITHIN 2 WEEKS OF DISCHARGE. Medications at Discharge Discharge Medications: Start taking the following new medications: Meclizine HCl (Meclizine HCl) 25 MG TABLET 1 Tablet ORAL THREE TIMES A DAY NEEDED Qty = 30 No Refills Comments: Last Taken: 11/19/16 Time: 0900 Thiamine HCl (B-1) 100 MG TABLET 1 Tablet ORAL DAILY Qty = 30 No Refills Comments: Last Taken: 11/19/16 Time: 0900 Cyanocobalamin (Vitamin B-12) (Vitamin B12) 2,500 MCG TABLET 1 Tablet ORAL DAILY Qty = 1 No Refills Comments: Last Taken: 11/19/16 Time: 0900 Amlodipine Besylate (Amlodipine Besylate) 5 MG TABLET 1 Tablet ORAL DAILY Qty = 30 No Refills Comments: Last Taken: 11/19/16 Time: 0900 Copies To: KOLE JUNIOR,GEORGE; SIENA JUNIOR,BROOKLYNN Mckeon MD Review Statement Documenting Attending: JOSE ANGEL JUNIOR,ELLIOT May Other Findings: Please see my separate attending note for more details. Agree with above discharge plan.
== END 2016-11-19 15:17 | DRG 111 ==
LOC: ENRESERVDT → ENRESERVTM → ERH 08:40 → ERHI 13:27 → 2NA 17:40
PROVIDERS: Emergency Medicine; Internal Medicine; ADMIT Hospitalist
DX: H81.21 Vestibular neuronitis, right ear (principal); D61.818 Other pancytopenia; H55.09 Other forms of nystagmus; D53.9 Nutritional anemia, unspecified; I10 Essential (primary) hypertension
CPT/HCPCS: 2NAP; 70552; 83921; 70553; 80307; 87389; 93005; 93010; 96361; 96374; 96375; 96376; 97112-GP; 97116-GO; 97116-GP; 97161-GP; 99291; A9579; G0480; J2405; J2765; J3420

== ENCOUNTER 2017-03-08 12:18 | Inpatient (IN) | payer OTHER ==
[~2017-03-08] VITALS: Ht 177.8 cm; Wt 99.8 kg
[~2017-03-08 12:18] MED LIST: AMLODIPINE BESYL5 M1 PO; ATORVASTATIN CA20 M1 PO; B-1100 MG PO; MECLIZINE HCL25 MG PO; VITAMIN B122500 MC1 PO
--- NOTE | 2017-03-08 12:20 | ED DYSPNEA/ASTHMA COMPLAINT ---
History of Present Illness General Chief Complaint: Dyspnea (COPD, CHF, Other) Stated Complaint: BIBA SOB Source: patient, family, PCP Exam Limitations: no limitations Vital Signs & Intake/Output Vital Signs & Intake/Output Vital Signs Date Time Temp Pulse Resp B/P B/P Pulse O2 O2 Flow FiO2 Mean Ox Delivery Rate 03/09 0839 88 110/50 03/09 0633 99.9 85 20 108/50 90 Nasal 1.5L Cannula 03/09 0000 Nasal 1.0L Cannula 03/08 2202 99.1 90 20 130/54 96 Nasal 1.0L Cannula 03/08 1852 93 138/58 03/08 1830 98.1 93 18 138/58 97 Nasal 1.0L Cannula 03/08 1648 98 Nasal 1.0L Cannula 03/08 1540 99.1 89 16 128/61 97 Nasal 1.0L Cannula 03/08 1529 99.0 87 16 120/56 99 Nasal 1.0L Cannula 03/08 1421 99.9 87 16 135/64 98 Nasal 1.0L Cannula 03/08 1315 98 Nasal 1.0L Cannula 03/08 1311 97.2 91 16 133/62 98 Nasal 1.0L Cannula 03/08 1227 97.0 93 16 154/67 91 Room Air ED Intake and Output 03/09 0000 03/08 1200 Intake Total 900 Output Total 200 Balance 700 Intake, IV 900 Intake, Oral 0 Output, Urine 200 Patient 220 lb Weight Weight Reported by Patient Measurement Method Allergies Coded Allergies: Penicillins (UNKNOWN 11/17/16) raspberry (UNKNOWN 03/08/17) strawberry (UNKNOWN 03/08/17) Reconcile Medications Acyclovir 400 MG TABLET 1 TAB PO TID ANTIVIRAL (Reported) Albuterol Sulfate (Proair Hfa) 90 MCG HFA.AER.AD 2 PUF INH Q6H PRN RESPIRATORY (Reported) Allopurinol 300 MG TABLET 1 TAB PO DAILY UNKNOWN (Reported) Amlodipine Besylate 5 MG TABLET 1 TAB PO DAILY HIGH BLOOD PRESSURE Cinnamon Bark (Cinnamon) (Unknown Strength) CAPSULE (Unknown Dose) PO DAILY SUPPLEMENT (Reported) Clobetasol Propionate 0.05 % CREAM..G. 1 PRATEEK TOP BID SKIN (Reported) apply to affected area(s) Cyanocobalamin (Vitamin B-12) 1,000 MCG TABLET 1 TAB PO DAILY SUPPLEMENT ( Reported) Brook (Unknown Strength) CAPSULE (Unknown Dose) PO DAILY SUPPLEMENT ( Reported) Glucosa Cardenas 2KCL/Chondroitin Cardenas (Glucosamine & Chondroitin Cap) 500 MG-400 MG CAPSULE 1 CAP PO TID SUPPLEMENT (Reported) Lactobacillus Acidophilus (Probiotic) (Unknown Strength) CAPSULE (Unknown Dose ) PO DAILY SUPPLEMENT (Reported) Levofloxacin 500 MG TABLET 1 TAB PO DAILY ANTIBIOTIC (Reported) Multivitamin (Multi-Day Vitamins) 1 EACH TABLET 1 TAB PO DAILY SUPPLEMENT ( Reported) Naproxen Sodium (Aleve) 220 MG TABLET 1 TAB PO BID PAIN (Reported) [place]-3 Fatty Acids/Fish Oil (Fish Oil 1,000 MG Capsule) 340 MG-1,000 MG CAPSULE 1,000 MG PO DAILY SUPPLEMENT (Reported) Valacyclovir HCl (Valacyclovir) 1,000 MG TABLET 1 TAB PO TID ANTIVIRAL ( Reported) Triage Nurses Notes Reviewed? yes Onset: Abrupt Duration: hour(s): (FEW) Timing: multiple episodes today Severity: moderate Activities at Onset: none Associated Symptoms: CHILLS, BACK PAIN HPI: This is a 61-year-old male with history of hairy cell leukemia who presents via EMS from Dr. Thompson's office. According to the patient he had chills and shakes this morning. He was generally not feeling well yesterday and his appetite is been poor. Admits to constipation. Cough without sputum production. Denies any nausea or vomiting. He does admit to some cramping. Patient had a week of chemotherapy at the beginning of the month. Patient was just diagnosed beginning of February. also reports rash over his abdomen back and lower extremities for the past [address] Calero patient had a low white count as well as low H&H. Past History Travel History Traveled to [place] past 21 day No Medical History Any Pertinent Medical History? see below for history Neurological: vertigo EENT: NONE Cardiovascular: NONE Respiratory: NONE Gastrointestinal: NONE Hepatic: NONE Renal: NONE Musculoskeletal: Arthritis (knees) Psychiatric: NONE Endocrine: NONE Blood Disorders: NONE Cancer(s): NONE STEEL HANGER/Reproductive: NONE History of MRSA: No History of VRE: No History of CDIFF: No Surgical History Surgical History: non-contributory Psychosocial History Services at Home None What is your primary language Portuguese Family History Hx Contributory? No Review of Systems Review of Systems Constitutional: Reports: chills, malaise. EENTM: Reports: no symptoms. Respiratory: Denies: cough, short of breath. Cardiovascular: Denies: chest pain, palpitations, peripheral edema. GI: Reports: see HPI (cramps), constipation. Denies: abdominal pain, diarrhea, nausea, vomiting. Genitourinary: Denies: discharge, dysuria, frequency. Musculoskeletal: Reports: back pain. Skin: Reports: no symptoms. Neurological/Psychological: Reports: no symptoms. Hematologic/Endocrine: Denies: bruising, bleeding, polyuria, polydipsia. Immunologic/Allergic: Denies: splenectomy. All Other Systems: Reviewed and Negative Physical Exam Physical Exam General Appearance: well developed/nourished, alert, awake, mild distress, moderate distress, PALE Head: atraumatic, normal appearance Eyes: Bilateral: PERRL, EOMI. Ears, Nose, Throat: DRY MUCUS MEMBRANES Neck: normal inspection, supple, full range of motion Respiratory: normal breath sounds, chest non-tender, no respiratory distress Cardiovascular: regular rate/rhythm Peripheral Pulses: 2+ radial (R), 2+ radial (L) Gastrointestinal: normal bowel sounds, soft, non-tender Extremities: normal inspection, normal capillary refill, normal range of motion, no edema Neurologic/Psych: no motor/sensory deficits, awake, alert, oriented x 3, normal gait Skin: rash (LOW BACK, GROIN, LEGS), BLANCHING RASH, NO WARMTH, NO EVIDENCE OF CELLULITIS Comments: LOW BACK NORMAL INSPECTION PAIN TO LEFT POSTERIOR ILIAC CREST Core Measures ACS in differential dx? No Severe Sepsis Present: No Septic Shock Present: No Progress Differential Diagnosis: NEUTROPENIC SEPSIS, PNEUMONIA, UTI, DRUG RASH, FUNGAL RASH, ANEMIA, ACUTE LOW BACK PAIN X 3 WEEK ? METASTATIC DISEASE, NIDUS OF INFECTION Plan of Care: Orders Procedure Date/time Status HEPATIC FUNCTION PANEL 03/09 600 Complete CBC WITHOUT DIFFERENTIAL 03/09 600 Complete BASIC ELECTROLYTES PLUS BUN&CR 03/09 06 Complete Change service to 03/09 05 Active US-UNILATERAL VENOUS DOPPLER 03/09 UNK Active House Staff 03/09 UN Active PHARMACY COMMUNICATION FORM 03/09 Active Heart Healthy Diet 03/08 D Active Vital Signs 03/08 164 Active Teach/Educate 03/08 1648 Active Pain Treatment and Response 03/08 1648 Active Nutritional Intake, Monitor 05/30 1648 Active Isolation 05/30 1648 Active Intake & Output 03/08 1648 Active Patient Care Conference 03/08 1648 Active Activity/Ambulation 03/08 1648 Active CULTURE,URINE 03/08 1634 Active CULTURE,STOOL 03/08 1634 Active LOWER RESPIRATORY CULTURE 03/08 1634 Active OXYGEN SETUP (GEN) 03/08 1600 Complete LACTIC ACID 03/08 1528 Complete Pathway - chart 03/08 1523 Active House Staff 03/08 1523 Active BLOOD PRODUCT PICKUP 03/08 1453 Active Patient Data 03/08 1451 Active VITAL CAPACITY MONITORING 03/08 1439 Active Admit to inpatient 03/08 1439 Active Code Status 03/08 1439 Active LEUKOCYTE POOR (PACKED CELLS) 03/08 1436 Active Add-on Test (ER Only) 03/08 1422 Active Add-on Test (ER Only) 03/08 1317 Active TYPE & SCREEN (NOT X-MATCH) 03/08 1317 Complete Intake & Output 03/08 1315 Active LDH (LACT ACID DEHYDROGENASE) 03/08 1300 Complete BLOOD CULTURE 03/08 1228 Active URINALYSIS 03/08 1228 Complete LACTIC ACID 03/08 1228 Complete HAPTOGLOBIN 03/08 1228 Active COMPREHENSIVE METABOLIC PANEL 03/08 1228 Complete CBC WITHOUT DIFFERENTIAL 03/08 1228 Complete EKG 03/08 1223 Active VTE Mechanical Prophylaxis 03/08 UNK Active Vital Signs 03/08 UNK Active Hemoccult 03/08 UNK Active Current Medications Sig/Ayse Start time Last Medication Dose Stop Time Status Admin Filgrastim 480 MCG DAILY@2100 03/09 2100 AC (Neupogen 480 Mcg/ 1.6 Ml) Fluconazole 100 MG DAILY 03/09 1000 AC 03/09 (Diflucan 100MG Tab) 03/10 0959 0838 Oxycodone HCl 20 MG Q12 03/09 1000 UNVr (OxyCONTIN) Hydromorphone HCl 2 MG Q4P PRN 03/09 0930 UNVr (Dilaudid) Ceftazidime 2,000 MG IQ8 03/09 0000 AC 03/09 (Fortaz) 0832 Dextrose/Water 50 ML (D5W) Cyclobenzaprine HCl 5 MG TID PRN 03/08 2215 AC 03/09 (Flexeril 5MG Tab) 0030 Acyclovir 400 MG TID 03/08 2200 AC 03/09 (Zovirax-Acyclovir 0838 200MG Capsule) Docusate Sodium 100 MG BID 03/08 2200 AC 03/09 (Colace) 0838 Senna/Docusate Sodium 1 TAB AT BEDTIME 03/08 2200 AC 03/08 (Senokot S) 220 Ondansetron HCl 4 MG Q6P PRN 03/08 1730 AC (Zofran) Sodium Chloride 1,000 ML Q10H 03/08 1730 AC 03/08 (Normal Saline 0.9%) 03/09 2329 2204 Polyethylene Glycol 17 GM DAILY 03/08 1723 AC 03/09 (Miralax) 0838 Amlodipine Besylate 5 MG DAILY 03/08 171 AC 03/09 (Norvasc) 0839 Cyanocobalamin 1,000 MCG DAILY 03/08 171 AC 03/09 (Vitamin B12) 0838 Diphenhydramine HCl 25 MG Q6-PRN PRN 03/08 1645 AC 03/09 (Benadryl) 0050 Tramadol HCl 50 MG Q4P PRN 03/08 1645 AC (Ultram) Sodium Chloride 1,000 ML .Q20H 03/08 1515 AC 03/08 (Normal Saline 0.9%) 1850 Non-Formulary 0 SEE ADMIN CRITERIA 03/08 1430 CAN Medication (NON FORMULARY) Laboratory Tests 03/09/17 0638: Anion Gap 7, Estimated GFR > 60, BUN/Creatinine Ratio 16.7, Total Bilirubin 1.7 H, Direct Bilirubin 0.7 H, AST 16 L, ALT 56, Alkaline Phosphatase 88, Total Protein 4.9 L, Albumin 2.8 L, CBC w Diff MAN DIFF ORDERED, RBC 1.83 L, MCV 100.0 H, MCH 34.8 H, RDW 14.9 H, MPV 7.9, Gran % 68.3, Lymphocytes % 27.8, Monocytes % 0.8 L, Eosinophils % 3.1, Basophils % 0 L, Absolute Granulocytes 0.4 L, Segmented Neutrophils 54, Band Neutrophils 15 H, Absolute Lymphocytes 0.2 L, Lymphocytes 26, Monocytes 1 L, Absolute Monocytes 0 L, Eosinophils 4, Absolute Eosinophils 0, Absolute Basophils 0, Nucleated RBCs 1 H, Platelet Estimate DECREASED, Hypochromic-Microcytic 1+, Poikilocytosis 2+, Anisocytosis 1 +, Macrocytic Cells 1+, PUBS MCHC 34.9 03/08/17 2015: Urine Color YEL, Urine Clarity HAZY H, Urine pH 6.0, Ur Specific [place] 1.020, Urine Protein TRACE H, Urine Ketones NEG, Urine Nitrite NEG, Urine Bilirubin NEG, Urine Urobilinogen 0.2, Ur Leukocyte Esterase NEG, Ur Microscopic SEDIMENT EXAMINED, Urine RBC RARE, Urine WBC RARE, Ur Epithelial Cells FEW, Urine Bacteria MOD H, Urine Mucus MOD H, Urine Hemoglobin TRACE-LYSED H, Urine Glucose NEG 03/08/17 1600: Lactic Acid 1.6 03/08/17 1300: Anion Gap 12, Estimated GFR > 60, BUN/Creatinine Ratio 20.0, Glucose 133 H, Lactic Acid 1.5, Calcium 8.6, Total Bilirubin 1.7 H, AST 16 L, ALT 68, Alkaline Phosphatase 118, Lactate Dehydrogenase 390, Total Protein 6.2 L, Albumin 3.8, Globulin 2.4, Albumin/Globulin Ratio 1.6, CBC w Diff MAN DIFF ORDERED, RBC 2.09 L, MCV 100.8 H, MCH 34.5 H, RDW 14.2, MPV 8.1, Gran % 68.3, Lymphocytes % 24.8, Monocytes % 1.4 L, Eosinophils % 4.9, Basophils % 0.6, Absolute Granulocytes 0.4 L, Segmented Neutrophils 56, Band Neutrophils 15 H, Absolute Lymphocytes 0.2 L, Lymphocytes 26, Absolute Monocytes 0 L, Eosinophils 3, Absolute Eosinophils 0, Absolute Basophils 0, Nucleated RBCs 2 H , Platelet Estimate , Polychromasia 1+, Hypochromic-Microcytic 2+, Poikilocytosis 2+, Anisocytosis 2+, Ovalocytes 1+, [facility] 34.3 03/08/17 1228: Haptoglobin Pending Microbiology 03/08 2015 URINE ROUT: Urine Culture - RES 03/08 1634 LOWER RESP: Respiratory Culture - COLB 03/08 1634 LOWER RESP: Gram Stain - COLB 03/08 1634 STOOL: Stool Culture - COLB 03/08 1418 BLOOD: Blood Culture - RECD 03/08 1300 BLOOD: Blood Culture - RECD LABS, CULTURES, LACTIC. D/W DR CALERO. ABX ORDERED (CEFIPINE NOT AVAILABLE T0DAY) - CEFTAZ AND PO DIFLUCAN ORDERED. TRANSFUSION ORDERED. WILL ADMIT TO HOSPITALIST SERVICE. CXR NEGATIVE. PATIENT IMPROVED AFTER IV MORPHINE. WILL REQUIRE FURTHER WORK UP FOR BACK/HIP PAIN. (DREAD JUNIOR,GUILLERMO) Diagnostic Imaging: Viewed by Me: Radiology Read. Discussed w/RAD: Radiology Read. CXR Impression: PATIENT: PAULETTE BUTLER PRESENT AGE: 61 PATIENT ACCOUNT NO: [id number] : 54 LOCATION: [facility] ORDERING PHYSICIAN: GUILLERMO CANADA MD SERVICE DATE: 03/08/17 EXAM TYPE: RAD - XRY-CHEST XRAY , PA AND LATERAL EXAMINATION: CHEST 2 VIEWS CLINICAL INFORMATION: Cough, chills. COMPARISON: 11/17/2016. TECHNIQUE: PA and lateral views of the chest were obtained. FINDINGS: The cardiac silhouette is not enlarged. The mediastinal and hilar contours are unremarkable. There are neither pleural effusions nor pneumothoraces. There are no consolidations. The osseous structures are unremarkable. IMPRESSION: No evidence for acute disease. DICTATED BY: ERIKA FITCH MD DATE/TIME DICTATED:03/08/171309 [facility] SPECIALIST:BRITTNEY DATE/TIME TRANSCRIBED:03/08/171309 CONFIDENTIAL, DO NOT COPY WITHOUT APPROPRIATE AUTHORIZATION. <Electronically signed in Other Vendor System> SIGNED BY: ERIKA FITCH MD 03/08/17 1314 Initial ED EKG: NSR Departure Departure Time of Disposition: 1440 Disposition: STILL A PATIENT Condition: Stable Clinical Impression Primary Impression: Rigors Secondary Impressions: Anemia, Neutropenia Referrals: BROOKLYNN WREN MD (PCP/Family) Departure Forms: Customer Survey General Discharge Information Admission Note Spoke With: ERIKA MARINO MD Documentation of Exam: Documentation of any treatments & extenuating circumstances including Concerns Regarding Discharge (functional status, medication knowledge or non-compliance, living conditions, etc.) that warrant an admission rather than observation: [IV ABX, F/U CULTURES,PAIN CONTROL, FURTHER IMAGING/INVESTIGATION OF LOW BACK PAIN, ONCOLOGY CONSULTATION DR CALERO, TRANSFUSE BLOOD] Critical Care Note Critical Care Note Critical Care Time: 30-74 min
--- NOTE | 2017-03-08 12:36 | NUR ---
[facility] FOR SOB, FATIGUE, GENERALIZED PAIN AND ALL OVER RASH. 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 O2 SAT 91% ON ROOM AIR, IMPROVED TO 96% 2L. LOW L BACK PAIN WITH DIFFICULTY MOVING AND MINIMAL ENERGY. DR CANADA IN ROOM FOR EVAL ON ARRIVAL.
--- NOTE | 2017-03-08 13:13 | NUR ---
SECOND IV ESTABLISHED AND LABS DRAWN AND SENT (BLUE, SST X2, LAV, NGUYỄN, PINK, BLOOD CULTURES X1 SET) 02 SAT 98 ON 1LNC SUPPLIMENTAL O2, COLORING IMPROVED. NORMAL SINUS 90'S NO ECTOPY OBSERVED. SCREAMING OUT IN PAIN WITH REPOSITIONING TO LLB AREA. MEDICATED WITH MORPHINE PER eMAR AND TOLERATING WELL. LIGHTS DIMMED FOR COMFORT.
--- NOTE | 2017-03-08 13:14 | RADIOLOGY REPORT ---
EXAMINATION: CHEST 2 VIEWS CLINICAL INFORMATION: Cough, chills. COMPARISON: 11/17/2016. TECHNIQUE: PA and lateral views of the chest were obtained. FINDINGS: The cardiac silhouette is not enlarged. The mediastinal and hilar contours are unremarkable. There are neither pleural effusions nor pneumothoraces. There are no consolidations. The osseous structures are unremarkable. IMPRESSION: No evidence for acute disease.
[2017-03-08 13:26] LABS: ABSOLUTE BASOPHIL COUNT 0 /CUMM (0.0-0.2); ABSOLUTE EOSINOPHIL COUNT 0 /CUMM (0.0-0.7); ABSOLUTE GRANULOCYTE CT 0.4 /CUMM (1.4-6.5); ABSOLUTE LYMPH COUNT 0.2 /CUMM (1.2-3.4); ABSOLUTE MONOCYTE COUNT 0 /CUMM (0.10-0.60); BASOPHIL % 0.6 % (0.0-2.0); EOSINOPHIL % 4.9 % (0-5); MEAN CORPUSCULAR HGB 34.5 PG (27.0-31.0); MEAN CORPUSCULAR HGB CONC 34.3 G/DL (33.0-37.0); MEAN CORPUSCULAR VOLUME 100.8 FL (80.0-94.0); MEAN PLATELET VOLUME 8.1 FL (7.4-10.4); PLATELET COUNT 93 /CUMM (130-400); RBC DISTRIBUTION WIDTH 14.2 % (11.5-14.5); RED BLOOD CELL CT 2.09 /CUMM (4.70-6.10)
[2017-03-08 13:28] LABS: GRANULOCYTE % 68.3 % (42.2-75.2)
[2017-03-08 13:34] LABS: WHITE BLOOD CELL COUNT 0.6 /CUMM (4.8-10.8)
--- NOTE | 2017-03-08 14:05 | NUR ---
CRITICAL TEST RESULTS [id number] PAULETTE BUTLER 61 M TESTS AND RESULTS: WBC 0.6, RBC 2.09, HEMOGLOBIN 7.2, HEMATOCRIT 21.0 Results received and read back by: BARI CASTELLANOS Results received date and time: 03/08/17 1406 The following provider was notified of the results, and read the results back: DR. CANADA Notified date and time: 03/08/17 at 1340
--- NOTE | 2017-03-08 14:20 | NUR ---
pt placed on neutropenic precautions, mask applied to pt and all staff to wear masks for infx control and prevention. Patient appears less rigorous, calmer, improvement in pain with lowgrade temp 99.9 and o2 sat stable 98% 1LNC. Second set of blood cultures drawn. informed waiting provided.
--- NOTE | 2017-03-08 14:55 | History & Physical ---
JESSICA JUNIOR,ZAKIA 03/08/17 1455: General Information and HPI MD Statement: I have seen and personally examined PAULETTE BUTLER and documented this H&P. The patient is a 61 year old M who was referred from oncology clinic for chills overnight. Source of Information: patient, family Exam Limitations: no limitations History of Present Illness: 61-year-old male with past medical history of recently diagnosed hairy cell leukemia, hypertension, arthritis, was sent to emergency by Dr.Nguyen Dumont, oncologist, for chills and rigor within the past 24 hours. According to the patient, he was recently diagnosed of hairy cell leukemia and underwent first chemotherapy from 02/14/2017 to 02/18/2017. In the past few days, he has been feeling tired, shortness of breath on exertion, dry cough, chills with rigor, sweating, nausea but no vomiting, "cotton mouthed", rash over his torso and limbs that appeared suddenly and are itchy, and worsening back pain. He also complained of constipation but his last bowel movement was yesterday. He denies any chest pain, palpitation, abdominal pain, changes in urine habits, leg swelling, recent travel, any sick contacts, leg/calf pain, insect bites/allergen contacts. Patient visited oncology clinic this morning and from there, was referred to the emergency department after running initial tests. 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 Home Who Do You Live With? spouse Services at Home: None Primary Language: Georgian Smoking Status: Never Smoked ETOH Use: occasional use (last use Tuesday) Illicit Drug Use: denies illicit drug use Living Will? no Functional Ability ADLs Independent: dressing, eating, toileting, bathing. Ambulation: independent IADLs Independent: shopping, housework, finances, food prep, telephone, transportation , medication admin. Review of Systems Review of Systems Constitutional: Reports: see HPI. EENTM: Reports: no symptoms. Cardiovascular: Reports: see HPI. Respiratory: Reports: see HPI. GI: Reports: see HPI. Genitourinary: Reports: no symptoms. Musculoskeletal: Reports: see HPI, back pain. Skin: Reports: see HPI, rash (itchy). Neurological/Psychological: Reports: no symptoms. Hematologic/Endocrine: Reports: no symptoms. All Other Systems: Reviewed and Negative Exam & Diagnostic Data Last 24 Hrs of Vital Signs/I&O Vital Signs Date Time Temp Pulse Resp B/P B/P Pulse O2 O2 Flow FiO2 Mean Ox Delivery Rate 03/08 1852 93 138/58 03/08 1830 98.1 93 18 138/58 97 Nasal 1.0L Cannula 03/08 1648 98 Nasal 1.0L Cannula 03/08 1540 99.1 89 16 128/61 97 Nasal 1.0L Cannula 03/08 1529 99.0 87 16 120/56 99 Nasal 1.0L Cannula 03/08 1421 99.9 87 16 135/64 98 Nasal 1.0L Cannula 03/08 1315 98 Nasal 1.0L Cannula 03/08 1311 97.2 91 16 133/62 98 Nasal 1.0L Cannula 03/08 1227 97.0 93 16 154/67 91 Room Air Intake & Output 03/08 1600 03/08 0800 03/08 0000 Intake Total 500 Output Total Balance 500 Intake, IV 500 Intake, Oral 0 Physical Exam General Appearance Oriented X3, Cooperative, No Acute Distress, tired Skin rashes are maculo papular, itchy, blanching, present over torso, and all four limbs, no skin break or scaling Skin Temp/Moisture Exam: Warm/Dry Sepsis Skin Exam (color): Normal for Ethnicity HEENT Atraumatic, PERRLA, EOMI, Mucous Membr. moist/pink Neck Supple, No JVD, No thryomegaly Cardiovascular Regular Rate, Normal S1, Normal S2, No Murmurs Lungs Clear to Auscultation, Normal Air Movement Abdomen Normal Bowel Sounds, Soft, No Tenderness, No Hepatospenomegaly Neurological Normal Speech, grossly intact, normal mentation Sepsis Peripheral Pulse Location: Dorsalis Pedis Sepsis Peripheral Pulse Exam: Normal Sepsis Cap Refill Exam: <2 Sec Last 24 Hrs of Labs/Shekhar: Laboratory Tests 03/08/17 1600: Lactic Acid 1.6 03/08/17 1300: Anion Gap 12, Estimated GFR > 60, BUN/Creatinine Ratio 20.0, Glucose 133 H, Lactic Acid 1.5, Calcium 8.6, Total Bilirubin 1.7 H, AST 16 L, ALT 68, Alkaline Phosphatase 118, Lactate Dehydrogenase 390, Total Protein 6.2 L, Albumin 3.8, Globulin 2.4, Albumin/Globulin Ratio 1.6, CBC w Diff MAN DIFF ORDERED, RBC 2.09 L, MCV 100.8 H, MCH 34.5 H, RDW 14.2, MPV 8.1, Gran % 68.3, Lymphocytes % 24.8, Monocytes % 1.4 L, Eosinophils % 4.9, Basophils % 0.6, Absolute Granulocytes 0.4 L, Segmented Neutrophils 56, Band Neutrophils 15 H, Absolute Lymphocytes 0.2 L, Lymphocytes 26, Absolute Monocytes 0 L, Eosinophils 3, Absolute Eosinophils 0, Absolute Basophils 0, Nucleated RBCs 2 H , Platelet Estimate , Polychromasia 1+, Hypochromic-Microcytic 2+, Poikilocytosis 2+, Anisocytosis 2+, Ovalocytes 1+, PUBS MCHC 34.3 03/08/17 1228: Haptoglobin Pending Microbiology 03/08 1634 URINE ROUT: Urine Culture - COLB 03/08 1634 LOWER RESP: Respiratory Culture - COLB 03/08 1634 LOWER RESP: Gram Stain - COLB 03/08 1634 STOOL: Stool Culture - COLB 03/08 1418 BLOOD: Blood Culture - RECD 03/08 1300 BLOOD: Blood Culture - RECD Diagnostic Data EKG Results Normal sinus rhythm in 90s, QRS 100, QTc 436. No ST-T changes. CXR Results IMPRESSION: No evidence for acute disease. DICTATED BY: ERIKA FITCH MD DATE/TIME DICTATED:03/08/171309 RUG REPAIRER:BRITTNEY DATE/TIME TRANSCRIBED:03/08/171309 Assessment/Plan Assessment: 61-year-old male with past medical history of recently diagnosed hairy cell leukemia, hypertension, arthritis, was sent to emergency by Dr. Gabriela Dumont, oncologist, for chills and rigor within the past 24 hours. He is currently being managed in the general medical floor for the following issues: #Neutropenic fever Patient does not have recorded high degree temperature but has chills/rigor, and his absolute neutrophil count calculated is 500 which is well below 1500 to call neutropenia. Given patient's recent history of leukemia and chemotherapy, a broad-spectrum antibiotic, antifungal and antiviral has to be started and watched very closely. -Ceftazidime, acyclovir, fluconazole has been started after consultation with oncology service -Filgastrim 480 g daily until ANC is more than 1500 -Follow-up panculture -Avoiding acetaminophen as it can mask fever, and NSAIDs as the platelet count is low, for pain management. Will use Tramdol and opiates, with aggressive bowel regimen. -Appreciate oncology consultation. Will follow recommendations. #Hypertension We'll continue home medication of amlodipine 5 mg daily by mouth. #Back pain Differentials include mechanical back pain, bone marrow expansion into long bones and the back, or infection. Pain management in place, will watch for any signs of infection. Currently none. #Anemia Patient's hemoglobin/hematocrit was 7.2/21.0, possibly due to chemotherapy. Received 1 unit of PRBC today in the ED. #Skin rash Patient's skin rash appears to be maculopapular and is itchy, making differentials like allergy, drug induced, infection which could be fungal, bacterial, viral exanthem. Patient currently is on antifungal, antibacterial and antiviral regimen, although the current regimen will not cover every possibility, will watch closely. Reassess daily. #Diet: Heart healthy #DVT ppx: ALPS only as he is thrombocytopenic #Code status: Full code As Ranked By This Provider Problem List: 1. Hairy cell leukemia not having achieved remission 2. Neutropenia 3. Chills (without fever) 4. Rigors 5. Pancytopenia 6. HTN (hypertension) 7. Arthritis of knee 8. Back pain Core Measures/Miscellaneous Acute Coronary Syndrome ACS Diagnosis: No Cerebrovascular Accident CVA/TIA Diagnosis: No Congestive Heart Failure CHF Diagnosis: No Venous Thromboembolism VTE Risk Factors: Age > 40, Cancer/chemo/oth therapy, Obesity [facility] prophylaxis d/t: No contraindications No VTE Pharm Prophylaxis d/t: Blood coag disorder, Medical contraindication, Platelets below ref range VTE Diagnosis: No VTE Type: NONE VTE Confirmed by (Test): NONE Severe Sepsis Severe Sepsis Present: No Septic Shock Septic Shock Present: No Miscellaneous Documentation Attending Case Discussed With: ERIKA MARINO MD Primary Care Physician: BROOKLYNN WREN MD Patient sees these Specialists Oncologist Level of Patient Care: General Medicine VALARIE CHAVEZ MD 03/08/17 1311: General Information and HPI Allergies/Medications Home Med list Acyclovir 400 MG TABLET 1 TAB PO TID ANTIVIRAL (Reported) Albuterol Sulfate (Proair Hfa) 90 MCG HFA.AER.AD 2 PUF INH Q6H PRN RESPIRATORY (Reported) Allopurinol 300 MG TABLET 1 TAB PO DAILY UNKNOWN (Reported) Amlodipine Besylate 5 MG TABLET 1 TAB PO DAILY HIGH BLOOD PRESSURE Cinnamon Bark (Cinnamon) (Unknown Strength) CAPSULE (Unknown Dose) PO DAILY SUPPLEMENT (Reported) Clobetasol Propionate 0.05 % CREAM..G. 1 PRATEEK TOP BID SKIN (Reported) apply to affected area(s) Cyanocobalamin (Vitamin B-12) 1,000 MCG TABLET 1 TAB PO DAILY SUPPLEMENT ( Reported) Brook (Unknown Strength) CAPSULE (Unknown Dose) PO DAILY SUPPLEMENT ( Reported) Glucosa Cardenas 2KCL/Chondroitin Cardenas (Glucosamine & Chondroitin Cap) 500 MG-400 MG CAPSULE 1 CAP PO TID SUPPLEMENT (Reported) Lactobacillus Acidophilus (Probiotic) (Unknown Strength) CAPSULE (Unknown Dose ) PO DAILY SUPPLEMENT (Reported) Levofloxacin 500 MG TABLET 1 TAB PO DAILY ANTIBIOTIC (Reported) Multivitamin (Multi-Day Vitamins) 1 EACH TABLET 1 TAB PO DAILY SUPPLEMENT ( Reported) Naproxen Sodium (Aleve) 220 MG TABLET 1 TAB PO BID PAIN (Reported) [place]-3 Fatty Acids/Fish Oil (Fish Oil 1,000 MG Capsule) 340 MG-1,000 MG CAPSULE 1,000 MG PO DAILY SUPPLEMENT (Reported) Valacyclovir HCl (Valacyclovir) 1,000 MG TABLET 1 TAB PO TID ANTIVIRAL ( Reported) Resident Review Statement Resident Statement: examined this patient, discussed with recruitment internship, agreed with recruitment internship, discussed with family, reviewed EMR data (avail), reviewed images Other Findings: 61 year old Male with PMH of HTN, arthitis and newly diagnosed hairy cell leukemia in February 2017 s/p his first round of chemotherapy who was sent in from his oncologist's office with complains of chills, shortnes of breath, mild non- productive cough, mild nausea and a rash. Patient got his first round of chemotherapy about 2 weeks ago (daily for 5 days) with cladrabine. He reports developing a rash a few days after chemotherapy and yesterday he developed chills with SOB and a mild nonproductive cough. He presented at his oncologist's office this morning for a routine administration of medication to boost his cell count and was sent to the ER because his cell counts were found to be low. He denies any chest pain, headache , vomiting, diarrhea or palpitations. He also twisted his back last night while trying to move and is in a lot of pain. He is also profoundly weak and pale. He denies any active bleed or blood in stool. No recent falls or trauma. In the ER pt has a low grade temp of 99. Calculated [id number] Assessment Neutropenic Fever Hairy Cell Leukemia Plan Admit to Neutropenic precautions Acyclovir 400mg TID-prophylaxis IV ceftazidime 2g [id number] neg coverage PO Fluconazole 150mg daily-Prohylaxis Daily Neupugen 480mg daily till ANC >1500 Olivera culture-stool, urine, blood, sputum if available PO Benadryl 25mg Q6hrs/Benadryl cream Resume his home meds Transfuse PRBC till Hb >7 Pain Mgt with PO Ultram and IV dilaudid titrate as needed Daily CBC and BEP Oncology consult Bowel Regimen Check LFTs in am FC Alps for DVT ppx ERIKA MARION MD 03/08/171944: Attending MD Review Statement Attending Statement Attending MD Statement: examined this patient, discuss w/resident/PA/NUTRITION THERAPIST, agreed w/resident/PA/NUTRITION THERAPIST, reviewed EMR data (avail), reviewed images, amended to note Attending Assessment/Plan: The patient is a 61 yo male with h/o HTN and recently diagnosed Hairy Cell Leukemia (02/23) who presented on the day of admission in the [place] ED after being [facility] from [facility] with chills, fever, and neutropenia/ anemia. He had received 5 day course of chemotherapy with Cladribine approximately 2 weeks ago. He noted a rash that developed several days after chemotherapy and a mild non-productive cough with minimal dyspnea that began the day prior to admission. He also states that he twisted his back and c/o back pain with movement. He did note some constipation and minimal abdominal cramps w/o dysuria, diarrhea, nausea/vomiting. His rash was noted to be on UE, LE, and trunk (?fungal). Physical Exam: VS: T 99.9, P 87, R 16, BP 135/64, 98% RA HEENT: eyes- PERRLA, EOMI elena -dry mucosa w/o ulcers Neck: no JVD, bruits, or adenopathy Chest: clear Cor: RRR, nl S1, S2 w/o murm Abd: BS+, soft, NT, - HSM Ext: tr edema, pulses 2+ Neuro: alert & oriented x 3, non-focal exam Derm: + annular erythematous rash on RUE, chest/trunk, LE Labs/Tests- as above Impression/Plan: #Neutropenic Fever- as above, had chills in heme/onc- low grade temp in ED with leukopenia and ANC of 500 secondary to recent chemotherapy. Plan: Admit to medical floor. Olivera culture. IV antibiotics to cover GNR (Ceftaz). Neupogen until ANC >1500. Granulocyte precautions. Heme-Onc consult- Dr. Ochoa. #Anemia- H/H 7.2/21.0 secondary to chemotherapy. Plan: Transfuse PRBC for Hgb 8.0. #Dermatitis- ? fungal infection. Plan: Empiric Fluconazole daily. #Essential HTN- on Amlodipine. Plan: Follow BP and treat with Amlodipine. #Back Pain- s/p "twisting" back as per patient. Doubt related to infection as patient relates mechanical injury. Plan: Dilaudid/Tramadol for pain at present. Eventual PT consult as WBC increases. #Hairy Cell Leukemia- patient received dose of chemo as above. Only 1 dose was planned [address] Dr[address] Ochoa and will assess response. Plan: If fails, may consider another protocol per Dr. Ochoa.
--- NOTE | 2017-03-08 15:30 | NUR ---
PT ADMITTED TO ROOM [id number]
--- NOTE | 2017-03-08 15:31 | NUR ---
BLOOD TRANSFUSION INITIATED AND PT TOLERATING WELL AT THIS TIME. PT RESTING AND SLEEPING INTERMITTENTLY.
[2017-03-08] MEDS ORDERED: ACYCLOVIR400 M1 PO (15:43)
[2017-03-08] MEDS ORDERED: ALLOPURINOL300 M1 PO (15:44)
[2017-03-08] MEDS ORDERED: PROAIR HFA8.5 GM INH (15:44)
[2017-03-08] MEDS ORDERED: VITAMIN B-121000 MC3 PO (15:45)
[2017-03-08] MEDS ORDERED: CLOBETASOL PROP15 GM TOP (15:45)
[2017-03-08] MEDS ORDERED: CINNAMON500 M1 PO (15:45)
[2017-03-08] MEDS ORDERED: FISH OIL 1,0001 EACH PO (15:46)
[2017-03-08] MEDS ORDERED: GINGER500 MG PO (15:49)
[2017-03-08] MEDS ORDERED: GLUCOSAMINE &1 EACH PO (15:50)
[2017-03-08] MEDS ORDERED: PROBIOTIC1 EACH PO (15:50)
[2017-03-08] MEDS ORDERED: LEVOFLOXACIN500 M1 PO (15:51)
[2017-03-08] MEDS ORDERED: MULTI-DAY VITA1 EACH PO (15:54)
[2017-03-08] MEDS ORDERED: ALEVE220 M2 PO (15:55)
[2017-03-08] MEDS ORDERED: VALACYCLOVIR1000 MG PO (15:55)
--- NOTE | 2017-03-08 16:00 | NUR ---
HOUSE STAFF NOW AT BEDSIDE
--- NOTE | 2017-03-08 16:04 | NUR ---
LACTIC ACID SENT
--- NOTE | 2017-03-08 16:16 | NUR ---
DR PEREIRA AT BEDSIDE
--- NOTE | 2017-03-08 18:17 | Cons- Hematology ---
General Information and HPI Consulting Request Date of Consult: 03/08/17 Requested By: ERIKA MARINO MD Reason for Consult: hairy cell leukemia, neutropenia Source of Information: patient, old records Exam Limitations: no limitations History of Present Illness: Mr. 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 He was cladribine 0.12 mg/ kg over 2 hours for 5 days from 02/14 to 02/18. He was seen in clinic today and was noted to have worsening clinical condition. He has been getting filgrastim- sndz as an outpatient for his neutropenia. He has been worsening with more fatigue and back pain. His back pain was worse over the last 24-48 hours. He has not felt to be himself. He has been trying to eat more. He continues to have rash but does seem to be improving. He has no had any diarrhea but does feel constipated. He has been having some chills at home. He has not had any sick contact. He has no dysuria. He does have a dry cough. He has not been breathing well. He overall felt tired. In the office, he was noted to have a lower hemoglobin at 7.2 g/dL and improving ANC and platelet. His ANC was 300 and platelet counts was 93,000. He was afebrile but oxygen saturation was down to 90%. In the ED, his blood work remains about the same. He was placed on 1L NC. He was started on antibiotics. Chest x-ray was unremarkable. Allergies/Medications Allergies: Coded Allergies: Penicillins (UNKNOWN 11/17/16) raspberry (UNKNOWN 03/08/17) strawberry (UNKNOWN 03/08/17) Home Med List: Acyclovir 400 MG TABLET 1 TAB PO TID ANTIVIRAL (Reported) Albuterol Sulfate (Proair Hfa) 90 MCG HFA.AER.AD 2 PUF INH Q6H PRN RESPIRATORY (Reported) Allopurinol 300 MG TABLET 1 TAB PO DAILY UNKNOWN (Reported) Amlodipine Besylate 5 MG TABLET 1 TAB PO DAILY HIGH BLOOD PRESSURE Cinnamon Bark (Cinnamon) (Unknown Strength) CAPSULE (Unknown Dose) PO DAILY SUPPLEMENT (Reported) Clobetasol Propionate 0.05 % CREAM..G. 1 PRATEEK TOP BID SKIN (Reported) apply to affected area(s) Cyanocobalamin (Vitamin B-12) 1,000 MCG TABLET 1 TAB PO DAILY SUPPLEMENT ( Reported) Brook (Unknown Strength) CAPSULE (Unknown Dose) PO DAILY SUPPLEMENT ( Reported) Glucosa Cardenas 2KCL/Chondroitin Cardenas (Glucosamine & Chondroitin Cap) 500 MG-400 MG CAPSULE 1 CAP PO TID SUPPLEMENT (Reported) Lactobacillus Acidophilus (Probiotic) (Unknown Strength) CAPSULE (Unknown Dose ) PO DAILY SUPPLEMENT (Reported) Levofloxacin 500 MG TABLET 1 TAB PO DAILY ANTIBIOTIC (Reported) Multivitamin (Multi-Day Vitamins) 1 EACH TABLET 1 TAB PO DAILY SUPPLEMENT ( Reported) Naproxen Sodium (Aleve) 220 MG TABLET 1 TAB PO BID PAIN (Reported) [place]-3 Fatty Acids/Fish Oil (Fish Oil 1,000 MG Capsule) 340 MG-1,000 MG CAPSULE 1,000 MG PO DAILY SUPPLEMENT (Reported) Valacyclovir HCl (Valacyclovir) 1,000 MG TABLET 1 TAB PO TID ANTIVIRAL ( Reported) Current Medications: Current Medications Sig/Ayse Start time Last Medication Dose Route Stop Time Status Admin Acetaminophen 650 MG Q6P PRN 03/08 1515 DC PO Acyclovir 400 MG TID 03/08 2200 AC PO Amlodipine Besylate 5 MG DAILY 03/08 1717 AC PO Ceftazidime 2,000 MG IQ8 03/09 0000 AC Dextrose/Water 50 ML IV Ceftazidime 0 .STK-MED ONE 03/08 1448 DC .ROUTE Ceftazidime 2,000 MG ONCE ONE 03/08 1445 DC 03/08 Dextrose/Water 50 ML IV 03/08 1514 1452 Cyanocobalamin 1,000 MCG DAILY 03/08 1717 AC PO Diphenhydramine HCl 25 MG Q6-PRN PRN 03/08 1645 AC IV Docusate Sodium 100 MG BID 03/08 2200 AC PO Docusate Sodium 100 MG BID 03/08 2200 AC PO Filgrastim 480 MCG DAILY 03/08 1722 AC SC Fluconazole 100 MG DAILY 03/09 1000 AC PO 03/10 0959 Fluconazole 150 MG ONCE ONE 03/08 1430 DC 03/08 PO 03/08 1431 1530 Hydromorphone HCl 1 MG Q4P PRN 03/08 1645 AC 03/08 IV 1717 Morphine Sulfate 4 MG ONCE ONE 03/08 1315 DC 03/08 IV 03/08 1316 1310 Morphine Sulfate 0 .STK-MED ONE 03/08 1313 DC .ROUTE Non-Formulary 0 SEE ADMIN CRITERIA 03/08 1430 CAN Medication ANY Ondansetron HCl 4 MG Q6P PRN 03/08 1730 AC IV Polyethylene Glycol 17 GM DAILY 03/08 1723 AC PO Senna/Docusate Sodium 1 TAB AT BEDTIME 03/08 2200 AC PO Senna/Docusate Sodium 1 TAB BID 03/08 2200 AC PO Sodium Chloride 1,000 ML Q10H 03/08 1730 AC IV 03/09 2329 Sodium Chloride 1,000 ML .Q20H 03/08 1515 AC IV Sodium Chloride 500 ML BOLUS ONE 03/08 1345 DC 03/08 IV 03/08 1444 1351 Tramadol HCl 50 MG Q4P PRN 03/08 1645 AC PO Review of Systems Review of Systems Constitutional: Reports: chills, malaise, weakness. Denies: fever. Cardiovascular: Denies: chest pain, peripheral edema, syncope. Respiratory: Reports: cough, short of breath. Denies: sputum production, wheezing. Genitourinary: Denies: dysuria. Musculoskeletal: Reports: back pain, muscle pain, muscle stiffness. Denies: neck pain. Skin: Reports: rash. Neurological/Psychological: Denies: anxiety, depressed. Hematologic/Endocrine: Denies: bruising, bleeding. Immunologic/Allergic: Denies: lymphadenopathy. All Other Systems: Reviewed and Negative Past History Travel History Traveled to [place] past 21 day No Medical History Blood Transfusion Hx: Yes Neurological: vertigo EENT: NONE Cardiovascular: NONE Respiratory: NONE Gastrointestinal: NONE Hepatic: NONE Renal: NONE Musculoskeletal: Arthritis (knees) Psychiatric: NONE Endocrine: NONE Blood Disorders: NONE Cancer(s): SON CELL LEUKEMIA MEDIA BUYER/Reproductive: NONE Surgical History Surgical History: knee replacement, DETACHED RETINA RT EYE Psychosocial History Where Do You Live? Home Who Do You Live With? spouse Services at Home: None Primary Language: Polish Smoking Status: Never Smoked Living Will? unknown Functional Ability ADLs Independent: dressing, eating, toileting, bathing. Ambulation: independent IADLs Independent: shopping, housework, finances, food prep, telephone, transportation , medication admin. Exam & Diagnostic Data Vital Signs and I&O Vital Signs Date Time Temp Pulse Resp B/P B/P Pulse O2 O2 Flow FiO2 Mean Ox Delivery Rate 03/08 1648 98 Nasal 1.0L Cannula 03/08 1540 99.1 89 16 128/61 97 Nasal 1.0L Cannula 03/08 1529 99.0 87 16 120/56 99 Nasal 1.0L Cannula 03/08 1421 99.9 87 16 135/64 98 Nasal 1.0L Cannula 03/08 1315 98 Nasal 1.0L Cannula 03/08 1311 97.2 91 16 133/62 98 Nasal 1.0L Cannula 03/08 1227 97.0 93 16 154/67 91 Room Air Intake & Output 03/08 1600 03/08 0800 03/08 0000 Intake Total 500 Output Total Balance 500 Intake, IV 500 Intake, Oral 0 Physical Exam General Appearance: alert, awake, comfortable Head: atraumatic Eyes: Bilateral: PERRL. Ears, Nose, Throat: normal pharynx, dry mucosa membranes Neck: normal inspection Respiratory: no respiratory distress, decreased breath sounds (at bases) Cardiovascular: regular rate/rhythm Gastrointestinal: normal bowel sounds, soft, no organomegaly Back: no vertebral tenderness Extremities: normal inspection, no edema Neurologic/Psych: awake, alert, oriented x 3 Skin: intact, normal color, rash (diffusely in all extremities) Lymphatic: no anterior cervical virgie Last 48 Hours of Lab Results: Laboratory Tests 03/08 03/08 03/08 1600 1300 1228 Chemistry Sodium (137 - 145 mmol/L) 135 L Potassium (3.5 - 5.1 mmol/L) 3.9 Chloride (98 - 107 mmol/L) 100 Carbon Dioxide (22 - 30 mmol/L) 23 Anion Gap (5 - 16) 12 BUN (9 - 20 mg/dL) 18 Creatinine (0.7 - 1.2 mg/dL) 0.9 Estimated GFR (>60 ml/min) > 60 BUN/Creatinine Ratio (7 - 25 %) 20.0 Glucose (65 - 99 mg/dL) 133 H Lactic Acid (0.7 - 2.1 mmol/L) 1.6 1.5 Calcium (8.4 - 10.2 mg/dL) 8.6 Total Bilirubin (0.2 - 1.3 mg/dL) 1.7 H AST (17 - 59 U/L) 16 L ALT (21 - 72 U/L) 68 Alkaline Phosphatase (< 127 U/L) 118 Lactate Dehydrogenase (313 - 618 U/L) 390 Total Protein (6.3 - 8.2 g/dL) 6.2 L Albumin (3.5 - 5.0 g/dL) 3.8 Globulin (1.9 - 4.2 gm/dL) 2.4 Albumin/Globulin Ratio (1.1 - 2.2 %) 1.6 Hematology CBC w Diff MAN DIFF ORDERED WBC (4.8 - 10.8 /CUMM) 0.6 *L RBC (4.70 - 6.10 /CUMM) 2.09 L Hgb (14.0 - 18.0 G/DL) 7.2 *L Hct (42 - 52 %) 21.0 L MCV (80.0 - 94.0 FL) 100.8 H MCH (27.0 - 31.0 PG) 34.5 H RDW (11.5 - 14.5 %) 14.2 Plt Count (130 - 400 /CUMM) 93 L MPV (7.4 - 10.4 FL) 8.1 Gran % (42.2 - 75.2 %) 68.3 Lymphocytes % (20.5 - 51.1 %) 24.8 Monocytes % (1.7 - 9.3 %) 1.4 L Eosinophils % (0 - 5 %) 4.9 Basophils % (0.0 - 2.0 %) 0.6 Absolute Granulocytes (1.4 - 6.5 /CUMM) 0.4 L Segmented Neutrophils (42.2 - 75.2 %) 56 Band Neutrophils (0.0 - 5.0 %) 15 H Absolute Lymphocytes (1.2 - 3.4 /CUMM) 0.2 L Lymphocytes (20.5 - 51.1 %) 26 Absolute Monocytes (0.10 - 0.60 /CUMM) 0 L Eosinophils (0 - 5.0 %) 3 Absolute Eosinophils (0.0 - 0.7 /CUMM) 0 Absolute Basophils (0.0 - 0.2 /CUMM) 0 Nucleated RBCs (0.0 - 0.0 /100WBC) 2 H Platelet Estimate (ADEQUATE) Polychromasia 1+ Hypochromic-Microcytic 2+ Poikilocytosis 2+ Anisocytosis 2+ Ovalocytes 1+ PUBS MCHC (33.0 - 37.0 G/DL) 34.3 Haptoglobin Pending Imaging/Other Studies: CXR 03/08/2017: The cardiac silhouette is not enlarged. The mediastinal and hilar contours are unremarkable. There are neither pleural effusions nor pneumothoraces. There are no consolidations. The osseous structures are unremarkable. Assessment/Plan Assessment: Mr. 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 His presentation is concerning for infection. He was admitted and started on antibiotic. He was previously on prophylactic levofloxacin and acyclovir. He also has a rash in diffusely. This was attributed to allopurinol which was held. Rash has improved a little. He still has a diffuse rash but not much in the inguinal and inner thighs. He should be started on antifungal and continued on antibiotic with antiviral. Blood culture is pending. He would benefit from daily filgrastim until ANC >1500 Recommendations: 1. Continue current antibiotic 2. Continue acyclovir 3. Start diflucan 4. Start filgrastim 480 mcg (5 mcg/kg rounding up) SC daily until ANC >1500 5. Aggress bowel regimen 6. Follow up on blood cultures 7. Oxycodone or Tramadol prn pain Problem List: 1. Pancytopenia 2. Hairy cell leukemia not having achieved remission 3. Rigors Other Findings/Comments: Please call [phone] with any questions or concerns. Consult Acknowledgment - Thank you for your consult request.
[2017-03-08 18:30] VITALS: BP 138/58
--- NOTE | 2017-03-08 19:42 | Admission Certification ---
Admission Certification Certification Statement - As attending physician, I certify that at the time of - admission, based on clinical presentation, severity of - symptoms, need for further diagnostic testing and - therapeutic interventions, and risk of adverse outcomes - without in-hospital treatment, in my clinical assessment, - this patient requires an acute hospital stay for a minimum - of two nights or longer. I have also considered psychsocial - factors such as support system, advanced age, financial - issues, cognitive issues, and failed out-patient treatments, - past re-admission history, safety of patient, and lack of - compliance as applicable. Specific rationale supporting this admission is: The patient presents with neutropenic fever after chemotherapy. Needs admission for beck-culture, IV antibiotics, diflucan, acyclovir, follow-up WBC, hem-onc consult Dr[facility] Ochoa. [facility].
--- NOTE | 2017-03-08 20:10 | NUR ---
NSG NOTE LATE ENTRY: PATIENT ARRIVED TO FLOOR AT 1635 VIA STRETCHER ACCOMPANIED BY DISTRIBUTION AND ED RN LEVI; BLOOD INFUSING AT THAT TIME; PATIENT A/OX3; 1LNC; (SEE VS); RASH TO BACK/THIGHS/FOREARMS; SKIN INTACT OTHERWISE; PATIENT WEARS 1 CONTACT TO RT EYE; PATIENT STATED PAIN 06/19; ORIENTED TO ROOM; CALL STEPHENSON IN REACH; WILL CONT TO MONITOR
[2017-03-08 22:02] VITALS: BP 130/54
--- NOTE | 2017-03-08 22:18 | Event Note ---
Event Note Event Note: Patient's right upper extremity is noticably more edematous than the left. He is also complaining of some back spasm which he takes flexeril for. Plan: Right upper extremity US to r/o DVT in the am Flexeril 5mg tid as needed for back spasm
[2017-03-09 06:33] VITALS: BP 108/50
--- NOTE | 2017-03-09 07:34 | PN- Housestaff ---
See Addendum JESSICA JUNIOR,ZAKIA 03/09/17 0733: Subjective Follow-up For: Neutropenic fever Subjective: I followed up and examined the patient today. He is resting comfortably in bed, not in distress, vitals signs stable, no issues overnight. Rashes have decreased, but are still itchy. Of note, patient received 2 units of PRBC today. Review of Systems Constitutional: Reports: no symptoms. Objective Last 24 Hrs of Vital Signs/I&O Vital Signs Date Time Temp Pulse Resp B/P B/P Pulse O2 O2 Flow FiO2 Mean Ox Delivery Rate 03/09 1435 98.7 88 20 120/80 96 03/09 1222 97.7 86 18 134/62 96 Room Air 03/09 0839 88 110/50 03/09 0800 98.9 03/09 0800 92 Nasal 1.0L Cannula 03/09 0633 99.9 85 20 108/50 90 Nasal 1.5L Cannula 03/09 0000 Nasal 1.0L Cannula 03/08 2202 99.1 90 20 130/54 96 Nasal 1.0L Cannula Intake & Output 03/09 1600 03/09 0800 03/09 0000 Intake Total 850 400 400 Output Total 501 200 Balance 349 400 200 Intake, IV 250 400 400 Intake, Oral 600 Output, Stool 1 Output, Urine 500 200 Patient 99.79 kg Weight Weight Reported by Patient Measurement Method Physical Exam General Appearance: Alert, Oriented X3, Cooperative, No Acute Distress Other Physical Findings: Skin rashes are maculo papular, itchy, blanching, present over torso, and all four limbs, no skin break or scaling, better than at admission Skin Temp/Moisture Exam: Warm/Dry HEENT Atraumatic, PERRLA, EOMI, Mucous Membr. moist/pink Neck Supple, No JVD, No thryomegaly Cardiovascular Regular Rate, Normal S1, Normal S2, No Murmurs Lungs Clear to Auscultation, Normal Air Movement Abdomen Normal Bowel Sounds, Soft, No Tenderness, No Hepatospenomegaly Neurological Normal Speech, grossly intact, normal mentation Current Medications: Current Medications Sig/Ayse Start time Last Medication Dose Route Stop Time Status Admin Acetaminophen 650 MG Q6P PRN 03/08 1515 DC PO Acyclovir 400 MG TID 03/08 2200 AC 03/08 PO 2204 Amlodipine Besylate 5 MG DAILY 03/08 1717 AC 03/08 PO 1852 Ceftazidime 2,000 MG IQ8 03/09 0000 AC 03/09 Dextrose/Water 50 ML IV 0028 Ceftazidime 0 .STK-MED ONE 03/08 1448 DC .ROUTE Ceftazidime 2,000 MG ONCE ONE 03/08 1445 DC 03/08 Dextrose/Water 50 ML IV 03/08 1514 1452 Cyanocobalamin 1,000 MCG DAILY 03/08 1717 AC 03/08 PO 1852 Cyclobenzaprine HCl 5 MG TID PRN 03/08 2215 AC 03/09 PO 0030 Diphenhydramine HCl 25 MG Q6-PRN PRN 03/08 1645 AC 03/09 IV 0050 Docusate Sodium 100 MG BID 03/08 2200 AC 03/08 PO 2204 Docusate Sodium 100 MG BID 03/08 2200 DC PO Filgrastim 480 MCG DAILY 03/08 1722 AC 03/08 SC 2016 Fluconazole 100 MG DAILY 03/09 1000 AC PO 03/10 0959 Fluconazole 150 MG ONCE ONE 03/08 1430 DC 03/08 PO 03/08 1431 1530 Hydromorphone HCl 1 MG Q4P PRN 03/08 1645 AC 03/09 IV 0407 Morphine Sulfate 4 MG ONCE ONE 03/08 1315 DC 03/08 IV 03/08 1316 1310 Morphine Sulfate 0 .STK-MED ONE 03/08 1313 DC .ROUTE Non-Formulary 0 SEE ADMIN CRITERIA 03/08 1430 CAN Medication ANY Ondansetron HCl 4 MG Q6P PRN 03/08 1730 AC IV Polyethylene Glycol 17 GM DAILY 03/08 1723 AC 03/08 PO 1854 Senna/Docusate Sodium 1 TAB AT BEDTIME 03/08 2200 AC 03/08 PO 2204 Senna/Docusate Sodium 1 TAB BID 03/08 2200 DC PO Sodium Chloride 1,000 ML Q10H 03/08 1730 AC 03/08 IV 03/09 2329 2204 Sodium Chloride 1,000 ML .Q20H 03/08 1515 AC 03/08 IV 1850 Sodium Chloride 500 ML BOLUS ONE 03/08 1345 DC 03/08 IV 03/08 1444 1351 Tramadol HCl 50 MG Q4P PRN 03/08 1645 AC PO Last 24 Hrs of Lab/Shekhar Results Last 24 Hrs of Labs/Mics: Laboratory Tests 03/09/17 0638: Sodium Pending, Potassium Pending, Chloride Pending, Carbon Dioxide Pending, Anion Gap Pending, BUN Pending, Creatinine Pending, BUN/Creatinine Ratio Pending , Total Bilirubin Pending, Direct Bilirubin Pending, AST Pending, ALT Pending, Alkaline Phosphatase Pending, Total Protein Pending, Albumin Pending, CBC w Diff Pending, WBC Pending, RBC Pending, Hgb Pending, Hct Pending, MCV Pending, MCH Pending, RDW Pending, Plt Count Pending, MPV Pending, PUBS MCHC Pending 03/08/17 2015: Urine Color YEL, Urine Clarity HAZY H, Urine pH 6.0, Ur Specific [place] 1.020, Urine Protein TRACE H, Urine Ketones NEG, Urine Nitrite NEG, Urine Bilirubin NEG, Urine Urobilinogen 0.2, Ur Leukocyte Esterase NEG, Ur Microscopic SEDIMENT EXAMINED, Urine RBC RARE, Urine WBC RARE, Ur Epithelial Cells FEW, Urine Bacteria MOD H, Urine Mucus MOD H, Urine Hemoglobin TRACE-LYSED H, Urine Glucose NEG 03/08/17 1600: Lactic Acid 1.6 03/08/17 1300: Anion Gap 12, Estimated GFR > 60, BUN/Creatinine Ratio 20.0, Glucose 133 H, Lactic Acid 1.5, Calcium 8.6, Total Bilirubin 1.7 H, AST 16 L, ALT 68, Alkaline Phosphatase 118, Lactate Dehydrogenase 390, Total Protein 6.2 L, Albumin 3.8, Globulin 2.4, Albumin/Globulin Ratio 1.6, CBC w Diff MAN DIFF ORDERED, RBC 2.09 L, MCV 100.8 H, MCH 34.5 H, RDW 14.2, MPV 8.1, Gran % 68.3, Lymphocytes % 24.8, Monocytes % 1.4 L, Eosinophils % 4.9, Basophils % 0.6, Absolute Granulocytes 0.4 L, Segmented Neutrophils 56, Band Neutrophils 15 H, Absolute Lymphocytes 0.2 L, Lymphocytes 26, Absolute Monocytes 0 L, Eosinophils 3, Absolute Eosinophils 0, Absolute Basophils 0, Nucleated RBCs 2 H , Platelet Estimate , Polychromasia 1+, Hypochromic-Microcytic 2+, Poikilocytosis 2+, Anisocytosis 2+, Ovalocytes 1+, PUBS MCHC 34.3 03/08/17 1228: Haptoglobin Pending Microbiology 03/08 2015 URINE ROUT: Urine Culture - RECD 03/08 1634 LOWER RESP: Respiratory Culture - COLB 03/08 1634 LOWER RESP: Gram Stain - COLB 03/08 1634 STOOL: Stool Culture - COLB 03/08 1418 BLOOD: Blood Culture - RECD 03/08 1300 BLOOD: Blood Culture - RECD Assessment/Plan Assessment: 61-year-old male with past medical history of recently diagnosed hairy cell leukemia, hypertension, arthritis, was sent to emergency by Dr. Gabriela Dumont, oncologist, for chills and rigor within the past 24 hours. He is currently being managed in the general medical floor for the following issues: #Neutropenic fever Patient does not have recorded high degree temperature but has chills/rigor, and his absolute neutrophil count calculated is 500 which is well below 1500 to call neutropenia. Given patient's recent history of leukemia and chemotherapy, a broad-spectrum antibiotic, antifungal and antiviral has to be started and watched very closely. -Continue Ceftazidime, acyclovir, fluconazole per oncology consult -Filgastrim 480 g daily until ANC is more than 1500 -Follow-up pancultures -Avoiding acetaminophen as it can mask fever, and NSAIDs as the platelet count is low, for pain management. Will use Tramdol and opiates, with aggressive bowel regimen. -Appreciate oncology consultation. Will follow recommendations. #Hypertension We'll continue home medication of amlodipine 5 mg daily by mouth. #Back pain Differentials include mechanical back pain, bone marrow expansion into long bones and the back, or infection. Pain management in place, will watch for any signs of infection. Currently none. Managing pain with opiates. Patient has 3 orders of bowel regimen. #Anemia Patient's hemoglobin/hematocrit was 7.2/21.0, possibly due to chemotherapy. Received 1 unit of PRBC today in the ED. patient's H&H was 6.4 and 18.3 today, and thus 2 units of PRBC was ordered for transfusion. We'll repeat CBC after transfusion. #Skin rash Patient's skin rash appears to be maculopapular and is itchy, making differentials like allergy, drug induced, infection which could be fungal, bacterial, viral exanthem. Patient currently is on antifungal, antibacterial and antiviral regimen, although the current regimen will not cover every possibility, will watch closely. Continue Benadryl cream for now. Reassess daily. #Diet: Heart healthy #DVT ppx: ALPS only as he is thrombocytopenic #Code status: Full code Problem List: 1. Hairy cell leukemia not having achieved remission 2. Neutropenia 3. Chills (without fever) 4. HTN (hypertension) 5. Arthritis of knee 6. Back pain 7. Anemia Pain Ratin Pain Location: back Pain Goal: Pain 4 or less Pain Plan: prn, opiates included Tomorrow's Labs & Rationales: CBC, BEP as h/h f/u and his na is decreasing. ROSEANNE JUNIOR,MIESHA 03/09/17 1443: Attending MD Review Statement Attending Statement Attending MD Statement: examined this patient, discuss w/resident/PA/FINANCIAL SERVICES AUDITOR, agreed w/resident/PA/FINANCIAL SERVICES AUDITOR, reviewed EMR data (avail), discussed with nursing, discussed with case mgmt, amended to note Attending Assessment/Plan: Problems: 1. Neutropenic fever 2. Hairy cell leukemia 3. Pain syndrome 4. Constipation 5. Pancytopenia. Plan: -Continue antibiotic therapy with cefazolin. Follow-up blood urine cultures. No evidence of pulmonary infection on chest x-ray. -Continue therapy with Neupogen. Follow-up recommendations of the hematology service. -Hemoglobin level remains suboptimal. Transfuse 2 units of blood. Keep hemoglobin level greater than 7. Check stool guaiac. -Continue bowel regimen with MiraLAX and Colace. Add Senokot to regimen.
[2017-03-09 07:59] LABS: ABSOLUTE BASOPHIL COUNT 0 /CUMM (0.0-0.2); ABSOLUTE EOSINOPHIL COUNT 0 /CUMM (0.0-0.7); ABSOLUTE LYMPH COUNT 0.2 /CUMM (1.2-3.4); ABSOLUTE MONOCYTE COUNT 0 /CUMM (0.10-0.60); RBC DISTRIBUTION WIDTH 14.9 % (11.5-14.5)
--- NOTE | 2017-03-09 08:08 | PN- Hematology ---
Subjective Subjective: He feels better after the blood transfusion. He did notice new right arm swelling overnight. He still has back pain. He has low grade temperature of around 99F. He denies any new pain. He still feels constipated. Review of Systems: Constitutional: Reports: chills, malaise, weakness. Denies: fever. Cardiovascular: Denies: chest pain. Respiratory: Reports: cough. Denies: sputum production, wheezing. GI: Reports: constipation Genitourinary: Denies: dysuria. Reports: decrease urine output Musculoskeletal: Reports: back pain, muscle pain, muscle stiffness. Denies: neck pain. Skin: Reports: rash. Hematologic/Endocrine: Denies: bruising, bleeding. All Other Systems: Reviewed and Negative Objective Vital Signs and I&Os Vital Signs Date Time Temp Pulse Resp B/P B/P Pulse O2 O2 Flow FiO2 Mean Ox Delivery Rate 03/09 0633 99.9 85 20 108/50 90 Nasal 1.5L Cannula 03/09 0000 Nasal 1.0L Cannula 03/08 2202 99.1 90 20 130/54 96 Nasal 1.0L Cannula 03/08 1852 93 138/58 03/08 1830 98.1 93 18 138/58 97 Nasal 1.0L Cannula 03/08 1648 98 Nasal 1.0L Cannula 03/08 1540 99.1 89 16 128/61 97 Nasal 1.0L Cannula 03/08 1529 99.0 87 16 120/56 99 Nasal 1.0L Cannula 03/08 1421 99.9 87 16 135/64 98 Nasal 1.0L Cannula 03/08 1315 98 Nasal 1.0L Cannula 03/08 1311 97.2 91 16 133/62 98 Nasal 1.0L Cannula 03/08 1227 97.0 93 16 154/67 91 Room Air Intake & Output 03/09 1600 03/09 0800 03/09 0000 03/08 1600 03/08 0800 03/08 0000 Intake Total 400 500 Output Total 200 Balance 200 500 Intake, IV 400 500 Intake, Oral 0 Output, Urine 200 Patient 99.79 kg Weight Weight Reported by Patient Measurement Method Physical Exam: General Appearance: alert, awake, comfortable Head, Eyes, Ears, Nose, Throat: normal pharynx, dry mucosa membranes Respiratory: no respiratory distress, decreased breath sounds (at bases) Cardiovascular: regular rate/rhythm Gastrointestinal: normal bowel sounds, soft, no organomegaly Back: no vertebral tenderness Extremities: normal inspection, no edema Neurologic/Psych: awake, alert, oriented x 3 Skin: intact, normal color, rash (diffusely in all extremities, worse in lower extremities) Lymphatic: no anterior cervical virgie Current Medications: Current Medications Sig/Ayse Start time Last Medication Dose Route Stop Time Status Admin Acetaminophen 650 MG Q6P PRN 03/08 1515 DC PO Acyclovir 400 MG TID 03/08 2200 AC 03/08 PO 220 Amlodipine Besylate 5 MG DAILY 03/08 1717 AC 03/08 PO 1852 Ceftazidime 2,000 MG IQ8 03/09 0000 AC 03/09 Dextrose/Water 50 ML IV 0028 Ceftazidime 0 .STK-MED ONE 03/08 1448 DC .ROUTE Ceftazidime 2,000 MG ONCE ONE 03/08 1445 DC 03/08 Dextrose/Water 50 ML IV 03/08 1514 1452 Cyanocobalamin 1,000 MCG DAILY 03/08 1717 AC 03/08 PO 1852 Cyclobenzaprine HCl 5 MG TID PRN 03/08 2215 AC 03/09 PO 0030 Diphenhydramine HCl 25 MG Q6-PRN PRN 03/08 1645 AC 03/09 IV 0050 Docusate Sodium 100 MG BID 03/08 2200 AC 03/08 PO 220 Docusate Sodium 100 MG BID 03/08 2200 DC PO Filgrastim 480 MCG DAILY 03/08 1722 AC 03/08 SC 2016 Fluconazole 100 MG DAILY 03/09 1000 AC PO 03/10 0959 Fluconazole 150 MG ONCE ONE 03/08 1430 DC 03/08 PO 03/08 1431 1530 Hydromorphone HCl 1 MG Q4P PRN 03/08 1645 AC 03/09 IV 0407 Morphine Sulfate 4 MG ONCE ONE 03/08 1315 DC 03/08 IV 03/08 1316 1310 Morphine Sulfate 0 .STK-MED ONE 03/08 1313 DC .ROUTE Non-Formulary 0 SEE ADMIN CRITERIA 03/08 1430 CAN Medication ANY Ondansetron HCl 4 MG Q6P PRN 03/08 1730 AC IV Polyethylene Glycol 17 GM DAILY 03/08 1723 AC 03/08 PO 1854 Senna/Docusate Sodium 1 TAB AT BEDTIME 03/08 2200 AC 03/08 PO 2204 Senna/Docusate Sodium 1 TAB BID 03/08 2200 DC PO Sodium Chloride 1,000 ML Q10H 03/08 1730 AC 03/08 IV 03/09 2329 2204 Sodium Chloride 1,000 ML .Q20H 03/08 1515 AC 03/08 IV 1850 Sodium Chloride 500 ML BOLUS ONE 03/08 1345 DC 03/08 IV 03/08 1444 1351 Tramadol HCl 50 MG Q4P PRN 03/08 1645 AC PO Results Last 24 Hours of Lab Results: Laboratory Tests 03/09 03/08 03/08 0638 2014 1600 Chemistry Sodium Pending Potassium Pending Chloride Pending Carbon Dioxide Pending Anion Gap Pending BUN Pending Creatinine Pending BUN/Creatinine Ratio Pending Lactic Acid (0.7 - 2.1 mmol/L) 1.6 Total Bilirubin Pending Direct Bilirubin Pending AST Pending ALT Pending Alkaline Phosphatase Pending Total Protein Pending Albumin Pending Hematology CBC w Diff Pending WBC Pending RBC Pending Hgb Pending Hct Pending MCV Pending MCH Pending RDW Pending Plt Count Pending MPV Pending PUBS MCHC Pending Urines Urine Color (YEL,AMB,STR) YEL Urine Clarity (CLEAR) HAZY H Urine pH (5.0 - 8.0) 6.0 Ur Specific Isabella (1.001 - 1.035) 1.020 Urine Protein (NEG,<30 MG/DL) TRACE H Urine Ketones (NEG) NEG Urine Nitrite (NEG) NEG Urine Bilirubin (NEG) NEG Urine Urobilinogen (0.1 - 1.0 EU/dl) 0.2 Ur Leukocyte Esterase (NEG) NEG Ur Microscopic SEDIMENT EXAMINED Urine RBC (0 - 5 /HPF) RARE Urine WBC (0 - 2 /HPF) RARE Ur Epithelial Cells (NONE,FEW) FEW Urine Bacteria (NEG/NONE) MOD H Urine Mucus (FEW,NONE) MOD H Urine Hemoglobin (NEG) TRACE-LYSED H Urine Glucose (N MG/DL) NEG 03/08 03/08 1300 1228 Chemistry Sodium (137 - 145 mmol/L) 135 L Potassium (3.5 - 5.1 mmol/L) 3.9 Chloride (98 - 107 mmol/L) 100 Carbon Dioxide (22 - 30 mmol/L) 23 Anion Gap (5 - 16) 12 BUN (9 - 20 mg/dL) 18 Creatinine (0.7 - 1.2 mg/dL) 0.9 Estimated GFR (>60 ml/min) > 60 BUN/Creatinine Ratio (7 - 25 %) 20.0 Glucose (65 - 99 mg/dL) 133 H Lactic Acid (0.7 - 2.1 mmol/L) 1.5 Calcium (8.4 - 10.2 mg/dL) 8.6 Total Bilirubin (0.2 - 1.3 mg/dL) 1.7 H AST (17 - 59 U/L) 16 L ALT (21 - 72 U/L) 68 Alkaline Phosphatase (< 127 U/L) 118 Lactate Dehydrogenase (313 - 618 U/L) 390 Total Protein (6.3 - 8.2 g/dL) 6.2 L Albumin (3.5 - 5.0 g/dL) 3.8 Globulin (1.9 - 4.2 gm/dL) 2.4 Albumin/Globulin Ratio (1.1 - 2.2 %) 1.6 Hematology CBC w Diff MAN DIFF ORDERED WBC (4.8 - 10.8 /CUMM) 0.6 *L RBC (4.70 - 6.10 /CUMM) 2.09 L Hgb (14.0 - 18.0 G/DL) 7.2 *L Hct (42 - 52 %) 21.0 L MCV (80.0 - 94.0 FL) 100.8 H MCH (27.0 - 31.0 PG) 34.5 H RDW (11.5 - 14.5 %) 14.2 Plt Count (130 - 400 /CUMM) 93 L MPV (7.4 - 10.4 FL) 8.1 Gran % (42.2 - 75.2 %) 68.3 Lymphocytes % (20.5 - 51.1 %) 24.8 Monocytes % (1.7 - 9.3 %) 1.4 L Eosinophils % (0 - 5 %) 4.9 Basophils % (0.0 - 2.0 %) 0.6 Absolute Granulocytes (1.4 - 6.5 /CUMM) 0.4 L Segmented Neutrophils (42.2 - 75.2 %) 56 Band Neutrophils (0.0 - 5.0 %) 15 H Absolute Lymphocytes (1.2 - 3.4 /CUMM) 0.2 L Lymphocytes (20.5 - 51.1 %) 26 Absolute Monocytes (0.10 - 0.60 /CUMM) 0 L Eosinophils (0 - 5.0 %) 3 Absolute Eosinophils (0.0 - 0.7 /CUMM) 0 Absolute Basophils (0.0 - 0.2 /CUMM) 0 Nucleated RBCs (0.0 - 0.0 /100WBC) 2 H Platelet Estimate (ADEQUATE) Polychromasia 1+ Hypochromic-Microcytic 2+ Poikilocytosis 2+ Anisocytosis 2+ Ovalocytes 1+ PUBS MCHC (33.0 - 37.0 G/DL) 34.3 Haptoglobin Pending Assessment/Plan Assessment/Recommendations: Mr. 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 There is concern for infectious process given his neutropenia. He has been running a temperature of around 99F and chills. He is on antibiotic current and was on prophylactic levofloxacin as an outpatient. He was also on prophylactic acyclovir. He was taken off allopurinol after he was noted to have a diffuse rash. Rash has improved a little but still persistent. He has been started on filgrastim. Blood cultures have been negative to date. UA is concerning for UTI. Urine culture is pending. He has new right arm swelling. He did have an IV on that side. US will be done to evaluate for DVT in the right upper extremity. Recommendations: 1. Continue current antibiotic 2. Continue acyclovir and diflucan 3. Follow up on blood and urine cultures 4. Continue filgrastim 480 mcg (5 mcg/kg rounding up) SC daily until ANC >1500 5. Aggressive bowel regimen 6. Follow up US of RUE Please call [phone] with any questions or concerns. Problem List: 1. Hairy cell leukemia not having achieved remission 2. Pancytopenia 3. Rigors 4. Back pain
--- NOTE | 2017-03-09 08:29 | NUR ---
03/09/17 AT 0700, PATIENT TEMPORATOR WAS 99.9, PATIENT DENIES CHILLS, BODY ACHE OR HEADACHE. NO DISTRESS NOTED. MD KOEHLER AWARE. INCOMING RN AWARE.
[2017-03-09 08:31] LABS: ABSOLUTE GRANULOCYTE CT 0.4 /CUMM (1.4-6.5); BASOPHIL % 0 % (0.0-2.0); EOSINOPHIL % 3.1 % (0-5); GRANULOCYTE % 68.3 % (42.2-75.2); MEAN CORPUSCULAR HGB 34.8 PG (27.0-31.0); MEAN CORPUSCULAR HGB CONC 34.9 G/DL (33.0-37.0); MEAN PLATELET VOLUME 7.9 FL (7.4-10.4); PLATELET COUNT 75 /CUMM (130-400); RED BLOOD CELL CT 1.83 /CUMM (4.70-6.10)
[2017-03-09 09:01] LABS: HEMATOCRIT 18.3 % (42-52)
[2017-03-09 09:02] LABS: WHITE BLOOD CELL COUNT 0.6 /CUMM (4.8-10.8)
--- NOTE | 2017-03-09 11:52 | ULTRASOUND REPORT ---
EXAMINATION: ULTRASOUND RIGHT EXTREMITY: CLINICAL INFORMATION: Swelling right upper extremity. Assess for DVT. TECHNIQUE: Doppler spectral analysis and color flow Doppler imaging was obtained. Compression and augmentation techniques were utilized. COMPARISON: None. FINDINGS: Respiratory variation, normal compression and augmented flow are noted throughout the upper extremity. The visualized internal jugular vein, innominate vein, subclavian vein, axillary vein, cephalic vein, basilic vein, brachial veins, and radial and ulnar veins show no evidence of deep venous thrombosis. There are no focal fluid collections. IMPRESSION: 1. There is no evidence of deep vein thrombosis. 2. All visualized venous structures demonstrate normal flow, with compression.
[2017-03-09 12:22] VITALS: BP 134/62
[2017-03-09 14:35] VITALS: BP 120/80
[2017-03-09 19:57] LABS: ABSOLUTE BASOPHIL COUNT 0 /CUMM (0.0-0.2); ABSOLUTE EOSINOPHIL COUNT 0 /CUMM (0.0-0.7); ABSOLUTE GRANULOCYTE CT 0.6 /CUMM (1.4-6.5); ABSOLUTE LYMPH COUNT 0.2 /CUMM (1.2-3.4); ABSOLUTE MONOCYTE COUNT 0 /CUMM (0.10-0.60); BASOPHIL % 0.1 % (0.0-2.0); EOSINOPHIL % 4.8 % (0-5); HEMATOCRIT 20.7 % (42-52); MEAN CORPUSCULAR HGB 34.9 PG (27.0-31.0); MEAN CORPUSCULAR HGB CONC 35.3 G/DL (33.0-37.0); MEAN CORPUSCULAR VOLUME 98.7 FL (80.0-94.0); MEAN PLATELET VOLUME 7.6 FL (7.4-10.4)
[2017-03-09 20:30] LABS: PLATELET COUNT 82 /CUMM (130-400)
[2017-03-09 20:31] LABS: GRANULOCYTE % 72.4 % (42.2-75.2)
[2017-03-09 20:34] LABS: WHITE BLOOD CELL COUNT 0.9 /CUMM (4.8-10.8)
--- NOTE | 2017-03-09 21:10 | Event Note ---
Event Note Event Note: Patient is complaining for pain on the right knee that he noted when he was getting up to go to the bathroom this afternoon. Patient has had 3 surgical procedures on that knee in the past. He has had pain in the past, but usually on ambulation. So this pain is unusual because he has been resting on the bed all day. There is also swelling that has progressed over the last 4-5 hours, and the right knee is noticably more swollen than the left. The ROM on the right knee is limited due to pain, but was able to flex up to 45degrees. The medial side of the knee was tender to touch. Assessment: Likely osteoarthritis flareup Possible gouty arthritis given hx of hairy cell leukemia currently on chemotherapy Septic arthiritis is also in the differential, especially given current neutropenia and hx of procedures on the that knee. Plan: Right knee xray Consider arthrocentesis f/u ua for crystal studies f/u uric acid level in blood : 4 consider colcichine or low dose nsaids ortho consult as needed 1030PM: EXAMINATION: XR KNEE, RIGHT CLINICAL INFORMATION: Tender, warm right knee. Limited range of motion. Concern for septic arthritis. COMPARISON: None TECHNIQUE: Four views of the right knee. FINDINGS: Severe tricompartmental degenerative changes of the right knee, most prominent within the medial compartment. There is loss of joint space height and prominent osteophytes. Chondrocalcinosis. No fracture. Small suprapatellar joint effusion. IMPRESSION: Severe tricompartmental degenerative changes of the right knee. Small suprapatellar joint effusion. I spoke to Dr. Rooney, orthopedic surgery industrial economics professor, over the phone as I was concerned for possible gouty arthritis or septic arthritis, especially given multiple surgeries on the knee. We also considered starting patient on vancomycin to cover MRSA. After reviewing the X-Ray report, Dr. Rooney thinks that the pain and swelling is secondary to degenerative disease, and the location of the tenderness correlates with the location of the bone spur. He advice AGAINST doing arthrocentesis as the likelihood of septic arthritis is less than 10% and the likelihood of finding MRSA in the joint aspirate is less than 1%. Also, given that he is immunocompromised, the chance of seeding the joint during the procedure outweighs the benefits. He will not see the patient in the hospital unless his clinical status changes. Please reach out to orthopedic surgery again if needed. He recommends - knee brace, preferably hinge knee brace (can be obtained from the clinic, recommends following up with ortho in clinic) - if knee brace not available, pursue michaela wrap - elevate, ice - increase mobilization - antiinflammatory - I ordered ibuprofen 600 tid scheduled, with protonix 40 mg daily - voltaren gel (we might not have it due to back order) - PT for quad exercise - Follow up with ID in am I also updated the attending, Dr. Bills regarding the situation and the plan. 11PM: I updated the patient regarding the xray results and my discussion with Dr. Rooney. Although he understands the rationale for not pursuing arthrocentesis and not starting vancomycin, he is still concerned for possible infection as his underwent neck surgery and ended up with MRSA infection. I was at bedside when the nurse measured his temp, it was 100.5 orally, was 100.9 prior to that (not recorded on the computer yet). His WBC 900 this am, 72.5% neutrophils. Will not add antibiotics at this point.
--- NOTE | 2017-03-09 22:04 | RADIOLOGY REPORT ---
EXAMINATION: XR KNEE, RIGHT CLINICAL INFORMATION: Tender, warm right knee. Limited range of motion. Concern for septic arthritis. COMPARISON: None TECHNIQUE: Four views of the right knee. FINDINGS: Severe tricompartmental degenerative changes of the right knee, most prominent within the medial compartment. There is loss of joint space height and prominent osteophytes. Chondrocalcinosis. No fracture. Small suprapatellar joint effusion. IMPRESSION: Severe tricompartmental degenerative changes of the right knee. Small suprapatellar joint effusion.
[2017-03-09 22:26] VITALS: BP 140/70
--- NOTE | 2017-03-09 22:47 | CT SCAN REPORT ---
EXAMINATION: CT ABDOMEN AND PELVIS WITHOUT CONTRAST CLINICAL INFORMATION: : hairy cell leukemia Presumptive Dx: ruling out retroperitoneal hematoma Signs Symptoms: back pain, thrombocytopenia didn't improve with transfusion COMPARISON: None TECHNIQUE: Multidetector volumetric imaging was performed from the superior aspect of the liver through the pubic symphysis. Sagittal and coronal reformatted images were obtained on the technologist's workstation. No oral or intravenous contrast. DLP: 710.82 mGy-cm FINDINGS: LUNG BASES: The visualized lung bases are unremarkable. LIVER, GALLBLADDER, AND BILIARY TREE: The liver is normal in size, shape, and attenuation. No focal hepatic lesion or biliary ductal dilatation is present. The gallbladder is unremarkable with no evidence of radiopaque gallstones, gallbladder wall thickening, or obvious pericholecystic inflammatory changes. PANCREAS: Unremarkable. SPLEEN: Spleen mildly prominent measuring 15.7 cm superior inferior. ADRENAL GLANDS: Unremarkable. KIDNEYS AND URETERS: There is a punctate calcification at the lower pole of left kidney in the renal virginie which is more likely a vascular calcification. Could be a small stone however. No hydronephrosis. No ureteral calculus. Kidneys are normal in size and contour. BLADDER: Unremarkable. GASTROINTESTINAL TRACT: There are a few scattered diverticula of the left colon but no diverticulitis. No acute change of bowel. No bowel obstruction. No bowel wall thickening or edema. Moderate volume of stool in colon. The appendix is identified. No inflammation the mesentery. Small bowel loops are normal. RETROPERITONEUM/MESENTERY: No free air or free fluid. No retroperitoneal fluid collection or hematoma or mass. ABDOMINAL WALL: Small fat-containing umbilical hernia LYMPH NODES: Normal. VASCULAR: Scattered vascular calcifications of the wall of aorta without aneurysm. PELVIC VISCERA: Unremarkable. OSSEOUS STRUCTURES: Degenerative arthrosis at facet joints and the vertebral endplate spurring thoracic and lumbar spine. Degenerative joint disease of hips with joint narrowing and spurring of femoral head and acetabula. IMPRESSION: No acute abnormality CT scan abdomen and pelvis. Mild splenomegaly. No retroperitoneal bleed or hematoma.
[2017-03-10 05:55] VITALS: BP 110/60
--- NOTE | 2017-03-10 07:02 | PN- Housestaff ---
JESSICA JUNIOR,ZAKIA 03/10/17 0702: Subjective Follow-up For: Neutropenic fever Subjective: I followed up and examined the patient today. He is resting in his bed, with right knee elevated by pillow, is complaining of significant pain while flexing/ bending his right knee which has decreased since midnight, got an x-ray overnight. His rashes have increased, appear to have coleashed and most of the area, and is still itchy. Although the EMR does not have records or fever, the event note from the night staff noted fever last night. Update: Around 3 PM, patient complained of increased swelling of his right knee and worsening pain. I updated my resident as well as attending physician, and have ordered ultrasound of right lower extremity to rule out DVT and an orthopedic consult. Review of Systems Constitutional: Reports: see HPI. Musculoskeletal: Reports: see HPI (Right knee pain). Objective Last 24 Hrs of Vital Signs/I&O Vital Signs Date Time Temp Pulse Resp B/P B/P Pulse O2 O2 Flow FiO2 Mean Ox Delivery Rate 03/10 1405 98.2 98 20 122/80 96 03/10 0806 79 110/60 03/10 0555 97.4 79 20 110/60 90 Room Air 03/09 2226 98.9 99 20 140/70 96 Room Air Intake & Output 03/10 1600 03/10 0800 03/10 0000 Intake Total 100 240 Output Total Balance 100 240 Intake, IV 100 Intake, Oral 240 Physical Exam General Appearance: Alert, Oriented X3, Cooperative, Mild Distress Other Physical Findings: Skin rashes are maculo papular, still itchy, has mostly coleased with each other , present over torso, and all four limbs, no skin break or scaling, worse than yesterday Skin Temp/Moisture Exam: Warm/Dry HEENT Atraumatic, PERRLA, EOMI, Mucous Membr. moist/pink Neck Supple, No JVD, No thryomegaly Cardiovascular Regular Rate, Normal S1, Normal S2, No Murmurs Lungs Clear to Auscultation, Normal Air Movement Abdomen Normal Bowel Sounds, Soft, No Tenderness, No Hepatospenomegaly Neurological Normal Speech, grossly intact, normal mentation Extermities Right knee is significantly sowllen and has limited range of motion, and has been worsening over the course of the day. Rashes present over limbs as well. Current Medications: Current Medications Sig/Ayse Start time Last Medication Dose Route Stop Time Status Admin Acetaminophen 650 MG Q4P PRN 03/10 0800 AC PO Acyclovir 400 MG TID 03/08 2200 AC 03/10 PO 1609 Amlodipine Besylate 5 MG DAILY 03/08 1717 AC 03/10 PO 0806 Bisacodyl 10 MG ONCE ONE 03/10 1045 DC SD 03/10 1046 Ceftazidime 2,000 MG Q8H 03/10 1100 AC 03/10 Dextrose/Water 50 ML IV 1808 Ceftazidime 2,000 MG IQ8 03/09 0000 DC 03/10 Dextrose/Water 50 ML IV 1145 Cyanocobalamin 1,000 MCG DAILY 03/08 1717 AC 03/10 PO 0806 Cyclobenzaprine HCl 5 MG .STK-MED ONE 03/10 0959 DC PO 03/10 1000 Cyclobenzaprine HCl 5 MG .STK-MED ONE 03/09 2220 DC PO 03/09 2221 Cyclobenzaprine HCl 5 MG TID PRN 03/08 2215 AC 03/10 PO 1500 Diclofenac Sodium 1 PRATEEK 4 TIMES/DAY 03/09 2230 AC 03/10 TOP 1808 Diphenhydramine HCl 1 PRATEEK TID 03/10 1000 AC 03/10 TOP 1609 Diphenhydramine HCl 25 MG Q6-PRN PRN 03/08 1645 AC 03/10 IV 0805 Docusate Sodium 100 MG BID 03/08 2200 AC 03/10 PO 0806 Filgrastim 480 MCG DAILY@2100 03/09 2100 AC 03/09 SC 2224 Fluconazole 100 MG DAILY 03/09 1000 DC 03/09 PO 03/10 0959 0838 Hydromorphone HCl 2 MG Q4P PRN 03/09 0930 AC 03/10 IV 1623 Ibuprofen 400 MG .STK-MED ONE 03/09 2312 DC PO 03/09 2313 Ibuprofen 600 MG TID 03/09 2230 DC 03/10 PO 0134 Naproxen 250 MG TID 03/10 2200 AC PO Naproxen 500 MG ONCE ONE 03/10 1645 DC 03/10 PO 03/10 1646 1808 Omeprazole 40 MG DAILY AC 03/09 2230 AC 03/10 PO 0134 Oxycodone HCl 20 MG Q12 03/09 1000 AC 03/10 PO 0809 Patient Medication 1 ED .STK-MED ONE 03/10 1334 FL Teaching ED 03/10 1335 Polyethylene Glycol 17 GM DAILY 03/08 1723 03/10 PO 0806 Senna/Docusate Sodium 1 TAB AT BEDTIME 03/08 2200 03/09 PO 2224 Tramadol HCl 50 MG Q4P PRN 03/08 1645 03/10 PO 1500 Last 24 Hrs of Lab/Shekhar Results Last 24 Hrs of Labs/Mics: Laboratory Tests 03/10/17 0700: Anion Gap 6, Estimated GFR > 60, BUN/Creatinine Ratio 15.6, CBC w Diff MAN DIFF ORDERED, RBC 2.26 L, MCV 97.6 H, MCH 33.6 H, RDW 15.6 H, MPV 7.8, Gran % 69.1, Lymphocytes % 25.7, Monocytes % 0.2 L, Eosinophils % 5.0, Basophils % 0 L, Absolute Granulocytes 0.5 L, Segmented Neutrophils 69, Band Neutrophils 3, Absolute Lymphocytes 0.2 L, Lymphocytes 21, Monocytes 1 L, Absolute Monocytes 0 L, Eosinophils 5, Absolute Eosinophils 0, Absolute Basophils 0, Metamyelocytes 1, Platelet Estimate DECREASED, Polychromasia 1+, Hypochromic- Microcytic 1+, Anisocytosis 1+, Macrocytic Cells 1+, PUBS MCHC 34.5 03/09/172131: Urine Color Cancelled, Urine Clarity Cancelled, Urine pH Cancelled, Ur Specific [place] Cancelled, Urine Protein Cancelled, Urine Ketones Cancelled, Urine Nitrite Cancelled, Urine Bilirubin Cancelled, Urine Urobilinogen Cancelled, Ur Leukocyte Esterase Cancelled, Ur Microscopic Cancelled, Urine Hemoglobin Cancelled, Urine Glucose Cancelled 03/09/171924: CBC w Diff NO MAN DIFF REQ, RBC 2.10 L, MCV 98.7 H, MCH 34.9 H, RDW 15.0 H, MPV 7.6, Gran % 72.4, Lymphocytes % 22.4, Monocytes % 0.3 L, Eosinophils % 4.8, Basophils % 0.1, Absolute Granulocytes 0.6 L, Absolute Lymphocytes 0.2 L, Absolute Monocytes 0 L, Absolute Eosinophils 0, Absolute Basophils 0, PUBS MCHC 35.3 Assessment/Plan Assessment: 61-year-old male with past medical history of recently diagnosed hairy cell leukemia, hypertension, arthritis, was sent to emergency by Dr. Gabriela Dumont, oncologist, for chills and rigor within the past 24 hours. He is currently being managed in the general medical floor for the following issues: PANCYTOPENIA: #Neutropenic fever, 2/2 chemotherapy for hairy Cell Leukemia Patient does not have recorded high degree temperature but has chills/rigor, and his absolute neutrophil count calculated is still around 500 which is well below 1500 to call neutropenia. Given patient's recent history of leukemia and chemotherapy, a broad-spectrum antibiotic, antifungal and antiviral has to be started and watched very closely. -Continue Ceftazidime, acyclovir, fluconazole per oncology consult -Cotinue Filgastrim 480 g daily until ANC is more than 1500 -Follow-up pancultures -Avoiding acetaminophen as it can mask fever, and NSAIDs as the platelet count is low, for pain management. Will use Tramdol and opiates, with aggressive bowel regimen. -Appreciate oncology consultation. Will follow recommendations. #Anemia Patient's hemoglobin/hematocrit was 7.2/21.0, possibly due to chemotherapy. Received 3 units of PRBC so far. (1 in the ED, and 2 in the GM floor). His h/h today is 7.6/22.1. We'll repeat CBC tomorrow. #Low Plt- 77 today, following closely as the patient is not bleeding actively. #Hypertension We'll continue home medication of amlodipine 5 mg daily by mouth. #Back pain Differentials include mechanical back pain, bone marrow expansion into long bones and the back, or infection. Pain management in place, will watch for any signs of infection. Currently none. Managing pain with opiates. Patient has 3 orders of bowel regimen. #Right knee pain/swelling: Patient started to have right knee pain and swelling since last night, which has worsened today. X-ray was negative for any acute bony changes, but had small effusion, which was acceptable given his chronic knee issues (3 surgeries, and loss of cartilages), but the worsening swelling and his pancytopenic state raises concern about other pathologies that could be masked by his immunocompromised state. Clinically, this does not appear to be gouty or septic arthritis, but an aspiration would be a definite measure to diagnose a gouty arthritis, pseudogout, or septic arthritis. Orthopedic consultation has been placed. Awaiting suggestions. Also awaiting Doppler ultrasound of right lower extremity to rule out DVT. #Skin rash Patient's skin rash appears to be maculopapular and is itchy, making differentials like allergy, drug induced, infection which could be fungal, bacterial, viral exanthem. Patient currently is on antifungal, antibacterial and antiviral regimen, although the current regimen will not cover every possibility, will watch closely. Continue Benadryl cream for now. Reassess daily. #Diet: Heart healthy #DVT ppx: ALPS only as he is thrombocytopenic #Code status: Full code Problem List: 1. Hairy cell leukemia not having achieved remission 2. Pancytopenia 3. Chills (without fever) 4. HTN (hypertension) 5. Arthritis of knee 6. Back pain 7. Anemia Pain Ratin Pain Location: right knee Pain Goal: Pain 4 or less Pain Plan: prn, including opiates Tomorrow's Labs & Rationales: CBC, BEP, LFT MIESHA CRONIN MD 03/10/17 1035: Attending MD Review Statement Attending Statement Attending MD Statement: examined this patient, discuss w/resident/PA/NURSE SANE, agreed w/resident/PA/NURSE SANE, reviewed EMR data (avail), discussed with nursing, discussed with case mgmt, amended to note Attending Assessment/Plan: Patient seen and examined. Resting comfortably not in acute distress. Reports only a small bowel movement overnight. Denies abdominal pain. Denies nausea vomiting. He received an additional 2 units of blood yesterday. His hemoglobin level on presentation was 7.2. It went up to 6.4 after 1 unit of blood. It is currently 7.6 after total of [address] abdomen was done yesterday. There is no evidence of intraperitoneal bleeding. There is no bright red blood or BLACK stools per rectum. He complains of periodic rash this morning. His back pain has improved though still present. CT abdomen showed no acute osseous abnormalities. Patient complaint of right knee pain acutely overnight. He however states that this pain is chronic. He has known severe osteoarthritis. He has had knee surgeries in the past. X-ray confirms diagnosis of osteoarthritis. No acute intervention recommended by the orthopedic service at present. 1. Neutropenia 2. Hairy cell leukemia 3. Pain syndrome 4. Constipation 5. Pancytopenia. 6. Rash. Plan: -Monitor hemoglobin level daily. Transfuse to keep hemoglobin level greater than 7. -Overnight house staff report fever 100.5 on 100.9 that was not documented. Blood cultures have been negative so far. We'll continue to monitor closely. If patient remains afebrile will need to reconsider antibiotic therapy. -At suppository to his bowel regimen as he remains constipated. -Continue current pain regimen. -Continue Benadryl for his rash. It is presumed to be secondary to allopurinol however this was discontinued as an outpatient. If rash persists may consider dermatology consultation. -Mobilize patient as tolerated. Apply warm compress to the right knee. Continue pain regimen.
[2017-03-10 08:04] LABS: ABSOLUTE BASOPHIL COUNT 0 /CUMM (0.0-0.2); ABSOLUTE EOSINOPHIL COUNT 0 /CUMM (0.0-0.7); ABSOLUTE LYMPH COUNT 0.2 /CUMM (1.2-3.4); ABSOLUTE MONOCYTE COUNT 0 /CUMM (0.10-0.60); BASOPHIL % 0 % (0.0-2.0)
[2017-03-10 08:32] LABS: ABSOLUTE GRANULOCYTE CT 0.5 /CUMM (1.4-6.5); GRANULOCYTE % 69.1 % (42.2-75.2); HEMATOCRIT 22.1 % (42-52); MEAN CORPUSCULAR HGB 33.6 PG (27.0-31.0); MEAN CORPUSCULAR HGB CONC 34.5 G/DL (33.0-37.0); MEAN CORPUSCULAR VOLUME 97.6 FL (80.0-94.0); MEAN PLATELET VOLUME 7.8 FL (7.4-10.4); PLATELET COUNT 77 /CUMM (130-400); RBC DISTRIBUTION WIDTH 15.6 % (11.5-14.5); RED BLOOD CELL CT 2.26 /CUMM (4.70-6.10)
[2017-03-10 09:02] LABS: WHITE BLOOD CELL COUNT 0.8 /CUMM (4.8-10.8)
--- NOTE | 2017-03-10 09:48 | PN- Hematology ---
Subjective Subjective: His back pain is improved. He did have new right knee pain. Right arm swelling is improved. He has no fever or chills. He did have a little fatigue. Review of Systems: Constitutional: Denies: fever. fatigue Cardiovascular: Denies: chest pain. Respiratory: Reports: cough. Denies: sputum production, wheezing. GI: Reports: constipation Genitourinary: Denies: dysuria. Reports: decrease urine output Musculoskeletal: Reports: back pain, muscle pain, muscle stiffness, knee pain. Skin: Reports: rash. Hematologic/Endocrine: Denies: bruising, bleeding. All Other Systems: Reviewed and Negative Objective Vital Signs and I&Os Vital Signs Date Time Temp Pulse Resp B/P B/P Pulse O2 O2 Flow FiO2 Mean Ox Delivery Rate 03/10 0806 79 110/60 03/10 0555 97.4 79 20 110/60 90 Room Air 03/09 2226 98.9 99 20 140/70 96 Room Air 03/09 1435 98.7 88 20 120/80 96 03/09 1222 97.7 86 18 134/62 96 Room Air Intake & Output 03/10 1600 03/10 0800 03/10 0000 03/09 1600 03/09 0800 03/09 0000 Intake Total 240 850 400 400 Output Total 501 200 Balance 240 349 400 200 Intake, IV 250 400 400 Intake, Oral 240 600 Output, Stool 1 Output, Urine 500 200 Patient 99.79 kg Weight Weight Reported by Patient Measurement Method Physical Exam: General Appearance: alert, awake, comfortable Head, Eyes, Ears, Nose, Throat: normal pharynx, dry mucosa membranes Respiratory: no respiratory distress, decreased breath sounds (at bases) Cardiovascular: regular rate/rhythm Gastrointestinal: normal bowel sounds, soft, no organomegaly Back: no vertebral tenderness Extremities: normal inspection, no edema Neurologic/Psych: awake, alert, oriented x 3 Skin: intact, normal color, rash (diffusely in all extremities, worse in lower extremities at thigh) Lymphatic: no anterior cervical virgie Current Medications: Current Medications Sig/Ayse Start time Last Medication Dose Route Stop Time Status Admin Acetaminophen 650 MG Q4P PRN 03/10 0800 AC PO Acyclovir 400 MG TID 03/08 2200 AC 03/10 PO 0805 Amlodipine Besylate 5 MG DAILY 03/08 1717 AC 03/10 PO 0806 Ceftazidime 2,000 MG IQ8 03/09 0000 AC 03/10 Dextrose/Water 50 ML IV 0220 Cyanocobalamin 1,000 MCG DAILY 03/08 1717 AC 03/10 PO 0806 Cyclobenzaprine HCl 5 MG .STK-MED ONE 03/09 2220 DC PO 03/09 2221 Cyclobenzaprine HCl 5 MG TID PRN 03/08 2215 AC 03/09 PO 2223 Diclofenac Sodium 1 PRATEEK 4 TIMES/DAY 03/09 2230 AC 03/10 TOP 0806 Diphenhydramine HCl 1 PRATEEK TID 03/10 1000 AC TOP Diphenhydramine HCl 50 MG .STK-MED ONE 03/09 1147 DC IM 03/09 1148 Diphenhydramine HCl 25 MG Q6-PRN PRN 03/08 1645 AC 03/10 IV 0805 Docusate Sodium 100 MG BID 03/08 2200 AC 03/10 PO 0806 Filgrastim 480 MCG DAILY@2100 03/09 2100 AC 03/09 SC 2224 Fluconazole 100 MG DAILY 03/09 1000 AC 03/09 PO 03/10 0959 0838 Hydromorphone HCl 2 MG Q4P PRN 03/09 0930 AC IV Hydromorphone HCl 1 MG Q4P PRN 03/08 1645 DC 03/09 IV 0832 Ibuprofen 400 MG .STK-MED ONE 03/09 2312 DC PO 03/09 2313 Ibuprofen 600 MG TID 03/09 2230 DC 03/10 PO 0134 Omeprazole 40 MG DAILY AC 03/09 2230 AC 03/10 PO 0134 Ondansetron HCl 4 MG Q6P PRN 03/08 1730 DC IV Oxycodone HCl 20 MG Q12 03/09 1000 AC 03/10 PO 0809 Polyethylene Glycol 17 GM DAILY 03/08 1723 AC 03/10 PO 0806 Senna/Docusate Sodium 1 TAB AT BEDTIME 03/08 2200 AC 03/09 PO 2224 Sodium Chloride 1,000 ML Q10H 03/08 1730 DC 03/08 IV 03/09 2329 2204 Sodium Chloride 1,000 ML .Q20H 03/08 1515 DC 03/08 IV 1850 Tramadol HCl 50 MG Q4P PRN 03/08 1645 AC PO Results Last 24 Hours of Lab Results: Laboratory Tests 03/10 03/09 0700 1925 Chemistry Sodium (137 - 145 mmol/L) 132 L Potassium (3.5 - 5.1 mmol/L) 3.8 Chloride (98 - 107 mmol/L) 99 Carbon Dioxide (22 - 30 mmol/L) 26 Anion Gap (5 - 16) 6 BUN (9 - 20 mg/dL) 14 Creatinine (0.7 - 1.2 mg/dL) 0.9 Estimated GFR (>60 ml/min) > 60 BUN/Creatinine Ratio (7 - 25 %) 15.6 Hematology CBC w Diff Pending NO MAN DIFF REQ WBC (4.8 - 10.8 /CUMM) Pending 0.9 *L RBC (4.70 - 6.10 /CUMM) Pending 2.10 L Hgb (14.0 - 18.0 G/DL) Pending 7.3 *L Hct (42 - 52 %) Pending 20.7 L MCV (80.0 - 94.0 FL) Pending 98.7 H MCH (27.0 - 31.0 PG) Pending 34.9 H RDW (11.5 - 14.5 %) Pending 15.0 H Plt Count (130 - 400 /CUMM) Pending 82 L MPV (7.4 - 10.4 FL) Pending 7.6 Gran % (42.2 - 75.2 %) Pending 72.4 Lymphocytes % (20.5 - 51.1 %) Pending 22.4 Monocytes % (1.7 - 9.3 %) Pending 0.3 L Eosinophils % (0 - 5 %) Pending 4.8 Basophils % (0.0 - 2.0 %) Pending 0.1 Absolute Granulocytes (1.4 - 6.5 /CUMM) Pending 0.6 L Absolute Lymphocytes (1.2 - 3.4 /CUMM) Pending 0.2 L Absolute Monocytes (0.10 - 0.60 /CUMM) Pending 0 L Absolute Eosinophils (0.0 - 0.7 /CUMM) Pending 0 Absolute Basophils (0.0 - 0.2 /CUMM) Pending 0 PUBS MCHC (33.0 - 37.0 G/DL) Pending 35.3 Recent Imaging Studies: CT abdomen/pelvis 03/09/2017: No acute abnormality CT scan abdomen and pelvis. Mild splenomegaly. No retroperitoneal bleed or hematoma. Venous doppler 03/09/2017: 1. There is no evidence of deep vein thrombosis. 2. All visualized venous structures demonstrate normal flow, with compression. Right knee x-ray 03/09/2017: Severe tricompartmental degenerative changes of the right knee. Small suprapatellar joint effusion. Assessment/Plan Assessment/Recommendations: Mr. 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 Cultures have been negative. He has been afebrile. He is currently on antibiotic with ceftazidime. He has new right knee pain. This is likely inflammatory. It has improved a little today. CT did not show any RP hematoma. Anemia is likely related to chemotherapy and decreased marrow function from disease. WBC is improving with filgrastim. If cultures are negative and afebrile, he may be considered to switch back to prophylactic levofloxacin. Recommendations: 1. Continue current antibiotic 2. Continue acyclovir and diflucan 3. Continue filgrastim 480 mcg (5 mcg/kg rounding up) SC daily until ANC >1500 4. Aggressive bowel regimen 5. If he remains symptomatic, may need transfusion of RBC again Please call [phone] with any questions or concerns. Problem List: 1. Hairy cell leukemia not having achieved remission 2. Pancytopenia 3. Rigors
--- NOTE | 2017-03-10 11:07 | NUR ---
Physical Thearpy: Consult received and chart reviewed. Spoke with pt regarding R knee pain. Pt reports it swells up occassionally but he takes a naprocin and it helps. Pt denies R knee pain/swelling interfering with his mobility. Acute skilled PT is not indicated at this time. Will not follow. Nurse aware.
[2017-03-10 14:05] VITALS: BP 122/80
--- NOTE | 2017-03-10 16:51 | NUR ---
1600 - PATIENT EXPERIENCING INCREASED SWELLING TO RIGHT KNEE WITH 9/10 PAIN. MD ZAKIA VAZQUEZ, MD CRONIN AT BEDSIDE. MEDICATION GIVEN TO PATIENT FOR PAIN AND NAPROSYN WAS ORDERED. THIS NURSE WILL CONTINUE TO MONITOR PT.
--- NOTE | 2017-03-10 18:51 | NUR ---
PT GOING DOWN TO ULTRASOUND AT THIS TIME. PATIENT STATES KNEE SWELLING IS INCREASING AND PT IS UNABLE TO PUT PRESSURE ON HIS RIGHT LEG DUE TO THE PAIN. PATIENT STATES IT IS "SHOOTING PAIN," AT THE KNEE WHEN ATTEMPTING TO STAND. MD VILLAREAL AWARE, NIGHT NURSE IDA GIVEN REPORT AND AWARE.
[2017-03-10 22:17] VITALS: BP 112/60
--- NOTE | 2017-03-10 22:17 | ULTRASOUND REPORT ---
EXAMINATION: US TRIPLEX LOWER EXTREMITY, RIGHT CLINICAL INFORMATION: Right lower extremity edema. Evaluate for deep venous thrombosis. COMPARISON: Ultrasound of the right lower extremity veins 03/09/2017. TECHNIQUE: Color-flow triplex imaging with spectral analysis and compression Doppler were performed on the lower extremity. FINDINGS: Respiratory variation, normal compression and augmented flow are noted throughout the left lower extremity. The visualized common femoral vein, femoral vein, profunda femoral vein, popliteal vein and midcalf peroneal and posterior tibial venous segments show no evidence of deep venous thrombosis. There is no Samuel's cyst. Incidental note is made of a complex septated cystic structure along the right anterior thigh, superior to the right patella and extending into the mid thigh, measuring approximately 7.1 x 5.4 x 6.3 cm. IMPRESSION: 1. No evidence of deep venous thrombosis involving the right lower extremity veins. 2. A 7.1 x 5.4 x 6.3 cm complex, septated cystic structure within the soft tissues of the right anterior thigh, superior to the right patella and extending into the mid right thigh. There is no internal vascularity on color Doppler imaging. This finding is entirely nonspecific. It may reflect an organizing fluid collection although there is no surrounding hypervascularity/hyperemia. Other diagnostic considerations include but are not limited to a hematoma or perhaps a large knee joint effusion. Correlate with physical exam and patient symptomatology.
[2017-03-11 07:03] VITALS: BP 118/64
--- NOTE | 2017-03-11 07:25 | PN- Housestaff ---
JESSICA JUNIOR,ZAKIA 03/11/17 0724: Subjective Follow-up For: Neutropenic fever; Right knee swelling/pain. Subjective: I followed up and examined the patient today. He is resting comfortably in bed, not in distress, but mentioned that his right knee was very painful/ uncomfortable overnight which has been subsiding now. He does not mention of any fever/chills. His vitals have an stable. Review of Systems Constitutional: Reports: see HPI. Musculoskeletal: Reports: see HPI (rt knee pain/swelling). Objective Last 24 Hrs of Vital Signs/I&O Vital Signs Date Time Temp Pulse Resp B/P B/P Pulse O2 O2 Flow FiO2 Mean Ox Delivery Rate 03/11 1536 98.2 95 20 116/60 95 Room Air 03/11 0806 93 118/64 03/11 0703 98.6 93 20 118/64 93 Room Air 03/10 2217 99.7 96 20 112/60 94 Room Air Intake & Output 03/11 1600 03/11 0800 03/11 0000 Intake Total 370 480 Output Total Balance 370 480 Intake, IV 150 Intake, Oral 220 480 Patient 99.79 kg Weight Physical Exam General Appearance: Alert, Oriented X3, Cooperative, No Acute Distress Other Physical Findings: Skin rashes are maculo papular, still itchy, has mostly coleased with each other , present over torso, and all four limbs, no skin break or scaling, same as yesterday Skin Temp/Moisture Exam: Warm/Dry HEENT Atraumatic, PERRLA, EOMI, Mucous Membr. moist/pink Neck Supple, No JVD, No thryomegaly Cardiovascular Regular Rate, Normal S1, Normal S2, No Murmurs Lungs Clear to Auscultation, Normal Air Movement Abdomen Normal Bowel Sounds, Soft, No Tenderness, No Hepatospenomegaly Neurological Normal Speech, grossly intact, normal mentation Extermities Right knee is significantly sowllen and has limited range of motion, and has been worsening over the course of the day. Rashes present over limbs as well. NO CHANGE FROM YESTERDAY AFTERNOON/EVENING. Current Medications: Current Medications Sig/Ayse Start time Last Medication Dose Route Stop Time Status Admin Acetaminophen 650 MG Q4P PRN 03/10 0800 AC PO Acyclovir 400 MG TID 03/08 2200 AC 06/02 PO 1606 Amlodipine Besylate 5 MG DAILY 03/08 1717 AC 03/11 PO 0806 Ceftazidime 2,000 MG Q8H 03/10 1100 AC 03/11 Dextrose/Water 50 ML IV 1118 Cyanocobalamin 1,000 MCG DAILY 03/08 1717 AC 03/11 PO 0806 Cyclobenzaprine HCl 5 MG .STK-MED ONE 03/11 0808 DC PO 03/11 0809 Cyclobenzaprine HCl 5 MG TID PRN 03/08 2215 AC 03/11 PO 0808 Diclofenac Sodium 1 PRATEEK 4 TIMES/DAY 03/09 2230 AC 03/11 TOP 1721 Diphenhydramine HCl 1 PRATEEK TID 03/10 1000 AC 03/11 TOP 1716 Diphenhydramine HCl 25 MG Q6-PRN PRN 03/08 1645 AC 03/11 IV 1300 Docusate Sodium 100 MG BID 03/08 2200 AC 03/11 PO 0805 Filgrastim 480 MCG DAILY@2100 03/09 2100 AC 03/10 SC 2141 Hydromorphone HCl 2 MG Q4P PRN 03/09 0930 AC 03/11 IV 0056 Lidocaine 20 ML ONCE ONE 03/11 0945 DC 03/11 SC 03/11 0946 1007 Naproxen 500 MG BID 03/11 1215 AC 03/11 PO 1300 Naproxen 250 MG TID 03/10 2300 DC 03/10 PO 2305 Naproxen 250 MG TID 03/10 2200 DC PO Omeprazole 40 MG DAILY AC 03/09 2230 AC 03/11 PO 0604 Oxycodone HCl 20 MG Q12 03/09 1000 AC 03/11 PO 0806 Polyethylene Glycol 17 GM DAILY 03/08 1723 AC 03/11 PO 0806 Senna/Docusate Sodium 1 TAB AT BEDTIME 03/08 2200 AC 03/10 PO 2139 Sodium Phosphate 1 UNIT ONCE ONE 03/11 1430 DC AZ 03/11 1431 Tramadol HCl 50 MG Q4P PRN 03/08 1645 AC 03/11 PO 0605 Vancomycin HCl 1,250 MG BID 03/11 2200 AC Sodium Chloride 250 ML IV Vancomycin HCl 1,000 MG DAILY 03/11 1521 DC Sodium Chloride 250 ML IV Last 24 Hrs of Lab/Shekhar Results Last 24 Hrs of Labs/Mics: Laboratory Tests 03/11/17 1000: % Normal PMNs 100, Fluid WBC 52181 H, Fld Total RBCs Counted 462 H 03/11/17 0630: Anion Gap 6, Estimated GFR > 60, BUN/Creatinine Ratio 17.5, Total Bilirubin 1.9 H, Direct Bilirubin 1.2 H, AST 16 L, ALT 53, Alkaline Phosphatase 111, Total Protein 4.9 L, Albumin 2.7 L, CBC w Diff MAN DIFF ORDERED, RBC 2.41 L, MCV 98.1 H, MCH 34.2 H, RDW 15.3 H, MPV 7.7, Gran % 71.9, Lymphocytes % 20.4 L, Monocytes % 0.3 L, Eosinophils % 7.1 H, Basophils % 0.3, Absolute Granulocytes 0.5 L, Segmented Neutrophils 63, Band Neutrophils 15 H, Absolute Lymphocytes 0.1 L, Lymphocytes 14 L, Monocytes 2, Absolute Monocytes 0 L, Eosinophils 6 H, Absolute Eosinophils 0, Absolute Basophils 0, Platelet Estimate DECREASED, Normocytic RBCs VERIFIED, Normochromic RBCs VERIFIED, PUBS MCHC 34.9 Microbiology 03/11 1643 BLOOD: Blood Culture - RECD 03/11 1600 BLOOD: Blood Culture - RECD 03/11 1000 BODY FLUID: Body Fluid Culture - RECD 03/11 1000 BODY FLUID: Gram Stain - RECD Assessment/Plan Assessment: 61-year-old male with past medical history of recently diagnosed hairy cell leukemia, hypertension, arthritis, was sent to emergency by Dr. Gabriela Dumont, oncologist, for chills and rigor within the past 24 hours. He is currently being managed in the general medical floor for the following issues: PANCYTOPENIA: #Neutropenic fever, 2/2 chemotherapy for hairy Cell Leukemia Patient does not have recorded high degree temperature but has chills/rigor, and his absolute neutrophil count calculated is still around 500 which is well below 1500 to call neutropenia. Given patient's recent history of leukemia and chemotherapy, a broad-spectrum antibiotic, antifungal and antiviral has to be started and watched very closely. -Continue Ceftazidime, acyclovir, per oncology consult. Fluconazole was discontinued yesterday. -Continue Filgastrim 480 g daily until ANC is more than 1500 -Follow-up pancultures -Avoiding acetaminophen as it can mask fever, and NSAIDs as the platelet count is low, for pain management. Will use Tramdol and opiates, with aggressive bowel regimen. He received Naproxen once yesterday anyway. -Appreciate oncology consultation. Will follow recommendations. #Right knee pain/swelling: Patient started to have right knee pain and swelling since 03/09/2017, received painkillers and x-ray, which showed small amount of effusion. His pain and swelling yesterday was significantly higher than the morning, thus an urgent ultrasound Doppler of right lower extremity was done to rule out DVT and orthopedics consultation placed. Concerns were regarding right knee effusion, septic arthritis, collections/hematoma. Patient was explained/updated about the conditions. Orthopedic evaluation this morning recommended right knee effusion tapping and cell count, culture, crystal studies were sent for investigation. Initial cell count appears to be 15,895 with 100% neutrophils, which is suggestive of septic arthritis although the total count is low, but consideration should be made that this patient is neutropenic to begin with. Infectious disease consultation was placed today who suggested continuing the antibiotics that are on currently along with vancomycin to cover staph aureus, while we wait for the culture reports. #Anemia Patient's hemoglobin/hematocrit was 7.2/21.0, possibly due to chemotherapy. Received 3 units of PRBC so far. (1 in the ED, and 2 in the GM floor). His h/h today is 8.3/23.7. We'll repeat CBC tomorrow. #Low Plt- 91 today, following closely as the patient is not bleeding actively. #Hypertension We'll continue home medication of amlodipine 5 mg daily by mouth. #Back pain Getting better. Managing pain with opiates. Patient has 3 orders of bowel regimen. #Skin rash Patient's skin rash was maculopapular and itchy, making differentials like allergy, drug induced, infection which could be fungal, bacterial, viral exanthem. Patient currently is on antifungal, antibacterial and antiviral regimen, although the current regimen will not cover every possibility, will watch closely. Concerns regarding the rashes being due to one of the medications allopurinol was raised before admission and was already held. The patient continues to have rash, that is itchy, thus warranting a formal dermatologic evaluation. A request to consult on the patient was made today. Continue Benadryl cream for now. #Diet: Heart healthy #DVT ppx: ALPS only as he is thrombocytopenic #Code status: Full code Problem List: 1. Hairy cell leukemia not having achieved remission 2. Pancytopenia 3. Chills (without fever) 4. HTN (hypertension) 5. Arthritis of knee 6. Back pain 7. Anemia Pain Ratin Pain Location: right knee Pain Goal: Pain 4 or less Pain Plan: prn Tomorrow's Labs & Rationales: CBC, LFT, BEP ROSEANNE JUNIOR,MIESHA 03/11/17 1232: Attending MD Review Statement Attending Statement Attending MD Statement: examined this patient, discuss w/resident/PA/[employer]ER, agreed w/resident/PA/[employer]ER, reviewed EMR data (avail), discussed with nursing, discussed with case mgmt, amended to note Attending Assessment/Plan: Late yesterday afternoon patient complained of increased swelling of the right knee. On examination the knee was more profoundly swollen compared to evaluation in the morning. The swelling was extending up the thigh. Significant difficulty flexing the right knee. I did discuss the case with orthopedic surgeon Dr. Izzy oliveros yesterday and differentials were decided to include exacerbation of his degenerative joint disease. Patient was started on anti-inflammatory therapy with naproxen yesterday. I also ordered Dopplers of the thigh to rule out any venous thrombosis. Dopplers did return showing a complex cystic collection superior to the right knee extending into the thigh. Due to concern for hematoma naproxen was held. This morning swelling and pain persisted. He was evaluated by the orthopedic service and a diagnostic arthrocentesis was done. 80 mL of yellow turbid fluid was aspirated from the superior lateral aspect of the right knee under sterile techniques. The fluid is felt to be a suprapatellar a suprapatellar effusion and not an abscess. Patient has remained afebrile other than the episode of fever when he was receiving his blood transfusion 2 days ago. There is remained hemodynamically stable. With blood transfusion his hemoglobin level has improved. Bili count has also trended upwards. His white cell count however remains significantly low. On examination diffuse rash persists as well. Problems: 1. Neutropenia 2. Hairy cell leukemia 3. Pain syndrome 4. Constipation 5. Pancytopenia. 6. Rash 7. Right knee effusion Plan: -Patient has remained afebrile hemodynamically stable. Blood cultures have been negative. -Follow-up joint fluid analysis. If cultures are negative discontinue ceftaz date and place patient back on his home dose of prophylactic antibiotic therapy as recommended by the oncology service. -Monitor hemoglobin levels daily. Transfuse to keep hemoglobin level greater than 7. -Continue bowel regimen. Recommend Fleet Enema today due to ongoing constipation. -Recommend dermatology evaluation of his persistent rash. -Physical therapy evaluation for safety discharge planning. -Follow-up with orthopedic surgeon Maurizio Rooney MD regarding any need for further imaging of the right leg. -Follow-up with the oncology service regarding ANC goal for discharge.
[2017-03-11 08:02] LABS: ABSOLUTE BASOPHIL COUNT 0 /CUMM (0.0-0.2); ABSOLUTE EOSINOPHIL COUNT 0 /CUMM (0.0-0.7); ABSOLUTE GRANULOCYTE CT 0.5 /CUMM (1.4-6.5); ABSOLUTE LYMPH COUNT 0.1 /CUMM (1.2-3.4); ABSOLUTE MONOCYTE COUNT 0 /CUMM (0.10-0.60); BASOPHIL % 0.3 % (0.0-2.0); EOSINOPHIL % 7.1 % (0-5); GRANULOCYTE % 71.9 % (42.2-75.2); HEMATOCRIT 23.7 % (42-52); MEAN CORPUSCULAR HGB 34.2 PG (27.0-31.0); MEAN CORPUSCULAR HGB CONC 34.9 G/DL (33.0-37.0); MEAN CORPUSCULAR VOLUME 98.1 FL (80.0-94.0); MEAN PLATELET VOLUME 7.7 FL (7.4-10.4); PLATELET COUNT 91 /CUMM (130-400); RBC DISTRIBUTION WIDTH 15.3 % (11.5-14.5); RED BLOOD CELL CT 2.41 /CUMM (4.70-6.10)
[2017-03-11 08:37] LABS: WHITE BLOOD CELL COUNT 0.7 /CUMM (4.8-10.8)
--- NOTE | 2017-03-11 10:36 | Cons- Orthopedic ---
SHAHBAZ VELIZ 03/11/17 1027: General Information and HPI Consulting Request Date of Consult: 03/11/17 Requested By: MIESHA CRONIN M.D Reason for Consult: Right knee effusion Source of Information: patient, family Exam Limitations: no limitations History of Present Illness: Mr. 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 His doctor was concerned since she is neutropenic at he did not have an underlying infection. On the medical service he has been treated with IV antibiotics however during this course he developed a worsening right knee effusion with no associated trauma. X-rays taken of the knee demonstrate severe degenerative arthritis of all 3 compartments. He denies right calf or foot pain. However he does complain of some right medial and lateral thigh pain with abduction and abduction of foot against resistance. Allergies/Medications Allergies: Coded Allergies: Penicillins (UNKNOWN 11/17/16) raspberry (UNKNOWN 03/08/17) strawberry (UNKNOWN 03/08/17) Home Med List: Acyclovir 400 MG TABLET 1 TAB PO TID ANTIVIRAL (Reported) Albuterol Sulfate (Proair Hfa) 90 MCG HFA.AER.AD 2 PUF INH Q6H PRN RESPIRATORY (Reported) Allopurinol 300 MG TABLET 1 TAB PO DAILY UNKNOWN (Reported) Amlodipine Besylate 5 MG TABLET 1 TAB PO DAILY HIGH BLOOD PRESSURE Cinnamon Bark (Cinnamon) (Unknown Strength) CAPSULE (Unknown Dose) PO DAILY SUPPLEMENT (Reported) Clobetasol Propionate 0.05 % CREAM..G. 1 PRATEEK TOP BID SKIN (Reported) apply to affected area(s) Cyanocobalamin (Vitamin B-12) 1,000 MCG TABLET 1 TAB PO DAILY SUPPLEMENT ( Reported) Brook (Unknown Strength) CAPSULE (Unknown Dose) PO DAILY SUPPLEMENT ( Reported) Glucosa Cardenas 2KCL/Chondroitin Cardenas (Glucosamine & Chondroitin Cap) 500 MG-400 MG CAPSULE 1 CAP PO TID SUPPLEMENT (Reported) Lactobacillus Acidophilus (Probiotic) (Unknown Strength) CAPSULE (Unknown Dose ) PO DAILY SUPPLEMENT (Reported) Levofloxacin 500 MG TABLET 1 TAB PO DAILY ANTIBIOTIC (Reported) Multivitamin (Multi-Day Vitamins) 1 EACH TABLET 1 TAB PO DAILY SUPPLEMENT ( Reported) Naproxen Sodium (Aleve) 220 MG TABLET 1 TAB PO BID PAIN (Reported) [place]-3 Fatty Acids/Fish Oil (Fish Oil 1,000 MG Capsule) 340 MG-1,000 MG CAPSULE 1,000 MG PO DAILY SUPPLEMENT (Reported) Valacyclovir HCl (Valacyclovir) 1,000 MG TABLET 1 TAB PO TID ANTIVIRAL ( Reported) Current Medications: Current Medications Sig/Ayse Start time Last Medication Dose Route Stop Time Status Admin Acetaminophen 650 MG Q4P PRN 03/10 0800 AC PO Acyclovir 400 MG TID 03/08 2200 AC 03/11 PO 0805 Amlodipine Besylate 5 MG DAILY 03/08 1717 AC 03/11 PO 0806 Bisacodyl 10 MG ONCE ONE 03/10 1045 DC [place] 03/10 1046 Ceftazidime 2,000 MG Q8H 03/10 1100 AC 03/11 Dextrose/Water 50 ML IV 0056 Ceftazidime 2,000 MG IQ8 03/09 0000 DC 03/10 Dextrose/Water 50 ML IV 1145 Cyanocobalamin 1,000 MCG DAILY 03/08 1717 AC 03/11 PO 0806 Cyclobenzaprine HCl 5 MG .STK-MED ONE 03/10 1453 DC PO 03/10 1454 Cyclobenzaprine HCl 5 MG TID PRN 03/08 2215 AC 03/11 PO 0808 Diclofenac Sodium 1 PRATEEK 4 TIMES/DAY 03/09 2230 AC 03/11 TOP 0805 Diphenhydramine HCl 1 PRATEEK TID 03/10 1000 AC 03/11 TOP 0805 Diphenhydramine HCl 25 MG Q6-PRN PRN 03/08 1645 AC 03/10 IV 0805 Docusate Sodium 100 MG BID 03/08 2200 AC 03/11 PO 0805 Filgrastim 480 MCG DAILY@2100 03/09 2100 AC 03/10 MO 2141 Hydromorphone HCl 2 MG Q4P PRN 03/09 0930 AC 03/11 IV 0056 Lidocaine 20 ML ONCE ONE 03/11 0945 DC 03/11 SC 03/11 0946 1007 Naproxen 250 MG TID 03/10 2300 DC 03/10 PO 2305 Naproxen 250 MG TID 03/10 2200 DC PO Naproxen 500 MG ONCE ONE 03/10 1645 DC 03/10 PO 03/10 1646 1808 Omeprazole 40 MG DAILY AC 03/09 2230 AC 03/11 PO 0604 Oxycodone HCl 20 MG Q12 03/09 1000 AC 03/11 PO 0806 Patient Medication 1 ED .K-MED ONE 03/10 1334 OH Teaching ED 03/10 1335 Polyethylene Glycol 17 GM DAILY 03/08 1723 03/11 PO 0806 Senna/Docusate Sodium 1 TAB AT BEDTIME 03/08 2200 AC 03/10 PO 2139 Tramadol HCl 50 MG Q4P PRN 03/08 1645 AC 03/11 PO 0605 Past History Medical History Blood Transfusion Hx: Yes EENT: NONE Cardiovascular: hypertension Respiratory: NONE Gastrointestinal: NONE Hepatic: NONE Renal: NONE Musculoskeletal: Arthritis (knees) Psychiatric: NONE Endocrine: NONE Blood Disorders: NONE Cancer(s): 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 Home Who Do You Live With? spouse Services at Home: None Primary Language: Maldivian Smoking Status: Never Smoked ETOH Use: occasional use (last use Tuesday) Illicit Drug Use: denies illicit drug use Living Will? no Functional Ability ADLs Independent: dressing, eating, toileting, bathing. Ambulation: independent IADLs Independent: shopping, housework, finances, food prep, telephone, transportation , medication admin. Exam & Diagnostic Data Vital Signs and I&O Vital Signs Date Time Temp Pulse Resp B/P B/P Pulse O2 O2 Flow FiO2 Mean Ox Delivery Rate 03/11 0806 93 118/64 03/11 0703 98.6 93 20 118/64 93 Room Air 03/10 2217 99.7 96 20 112/60 94 Room Air 03/10 1405 98.2 98 20 122/80 96 Intake & Output 03/11 1600 03/11 0800 03/11 0000 03/10 1600 03/10 0800 03/10 0000 Intake Total 370 480 100 240 Output Total Balance 370 480 100 240 Intake, IV 150 100 Intake, Oral 220 480 240 Physical Exam: Exam: There is a large effusion in the suprapatellar region of the right knee Mild erythema is noted but no warmth There is no evidence of ascending cellulitis There is no calf tenderness to palpation bilateral lower extremities There is no motor or sensory deficits noted distally Distal pedal pulses are intact Thigh is soft to palpation Last 24 Hours of Labs: Laboratory Tests 03/11 03/11 1000 0630 Chemistry Sodium (137 - 145 mmol/L) 130 L Potassium (3.5 - 5.1 mmol/L) 4.1 Chloride (98 - 107 mmol/L) 95 L Carbon Dioxide (22 - 30 mmol/L) 28 Anion Gap (5 - 16) 6 BUN (9 - 20 mg/dL) 14 Creatinine (0.7 - 1.2 mg/dL) 0.8 Estimated GFR (>60 ml/min) > 60 BUN/Creatinine Ratio (7 - 25 %) 17.5 Total Bilirubin (0.2 - 1.3 mg/dL) 1.9 H Direct Bilirubin (< 0.4 mg/dL) 1.2 H AST (17 - 59 U/L) 16 L ALT (21 - 72 U/L) 53 Alkaline Phosphatase (< 127 U/L) 111 Total Protein (6.3 - 8.2 g/dL) 4.9 L Albumin (3.5 - 5.0 g/dL) 2.7 L Hematology CBC w Diff MAN DIFF ORDERED WBC (4.8 - 10.8 /CUMM) 0.7 *L RBC (4.70 - 6.10 /CUMM) 2.41 L Hgb (14.0 - 18.0 G/DL) 8.3 L Hct (42 - 52 %) 23.7 L MCV (80.0 - 94.0 FL) 98.1 H MCH (27.0 - 31.0 PG) 34.2 H RDW (11.5 - 14.5 %) 15.3 H Plt Count (130 - 400 /CUMM) 91 L MPV (7.4 - 10.4 FL) 7.7 Gran % (42.2 - 75.2 %) 71.9 Lymphocytes % (20.5 - 51.1 %) 20.4 L Monocytes % (1.7 - 9.3 %) 0.3 L Eosinophils % (0 - 5 %) 7.1 H Basophils % (0.0 - 2.0 %) 0.3 Absolute Granulocytes (1.4 - 6.5 /CUMM) 0.5 L Segmented Neutrophils (42.2 - 75.2 %) 63 Band Neutrophils (0.0 - 5.0 %) 15 H Absolute Lymphocytes (1.2 - 3.4 /CUMM) 0.1 L Lymphocytes (20.5 - 51.1 %) 14 L Monocytes (1.7 - 9.3 %) 2 Absolute Monocytes (0.10 - 0.60 /CUMM) 0 L Eosinophils (0 - 5.0 %) 6 H Absolute Eosinophils (0.0 - 0.7 /CUMM) 0 Absolute Basophils (0.0 - 0.2 /CUMM) 0 Platelet Estimate (ADEQUATE) DECREASED Normocytic RBCs VERIFIED Normochromic RBCs VERIFIED PUBS MCHC (33.0 - 37.0 G/DL) 34.9 Other Body Source Fluid WBC Pending Fld Total RBCs Counted Pending Imaging Results: SERVICE DATE: 03/09/17 EXAM TYPE: RAD - XRY-KNEE, RIGHT EXAMINATION: XR KNEE, RIGHT CLINICAL INFORMATION: Tender, warm right knee. Limited range of motion. Concern for septic arthritis. COMPARISON: None TECHNIQUE: Four views of the right knee. FINDINGS: Severe tricompartmental degenerative changes of the right knee, most prominent within the medial compartment. There is loss of joint space height and prominent osteophytes. Chondrocalcinosis. No fracture. Small suprapatellar joint effusion. IMPRESSION: Severe tricompartmental degenerative changes of the right knee. Small suprapatellar joint effusion. DICTATED BY: KISHA RAYGOZA MD DATE/TIME DICTATED:03/09/172158 FERRULER:BRITTNEY DATE/TIME TRANSCRIBED:03/09/172158 Other Results: SERVICE DATE: 03/10/17- EXAM TYPE: US - US-UNILATERAL VENOUS DOPPLER ADDENDUM: A CT of the right lower extremity from the right hip to the right knee may be obtained for further evaluation in further characterization of the fluid collection within the soft tissues of the right anterior thigh. Addendum Signed by: RAMÍREZ HILTON MD 03/10/17 3131 EXAMINATION: US TRIPLEX LOWER EXTREMITY, RIGHT CLINICAL INFORMATION: Right lower extremity edema. Evaluate for deep venous thrombosis. COMPARISON: Ultrasound of the right lower extremity veins 03/09/2017. TECHNIQUE: Color-flow triplex imaging with spectral analysis and compression Doppler were performed on the lower extremity. FINDINGS: Respiratory variation, normal compression and augmented flow are noted throughout the left lower extremity. The visualized common femoral vein, femoral vein, profunda femoral vein, popliteal vein and midcalf peroneal and posterior tibial venous segments show no evidence of deep venous thrombosis. There is no Samuel's cyst. Incidental note is made of a complex septated cystic structure along the right anterior thigh, superior to the right patella and extending into the mid thigh, measuring approximately 7.1 x 5.4 x 6.3 cm. IMPRESSION: 1. No evidence of deep venous thrombosis involving the right lower extremity veins. 2. A 7.1 x 5.4 x 6.3 cm complex, septated cystic structure within the soft tissues of the right anterior thigh, superior to the right patella and extending into the mid right thigh. There is no internal vascularity on color Doppler imaging. This finding is entirely nonspecific. It may reflect an organizing fluid collection although there is no surrounding hypervascularity/hyperemia. Other diagnostic considerations include but are not limited to a hematoma or perhaps a large knee joint effusion. Correlate with physical exam and patient symptomatology. DICTATED BY: RAMÍREZ HILTON MD DATE/TIME DICTATED:03/10/172207 FERRULER:BRITTNEY DATE/TIME TRANSCRIBED:03/10/172207 Assessment/Plan Assessment/Plan At the bedside: The right knee was prepped laterally in the usual sterile fashion and draped 80 mL of yellow turbid fluid was aspirated from the superior lateral aspect of the right knee. The patient tolerated the procedure well. The fluid was sent to the laboratory for analysis. Assessment Mr. Bullard is a 61-year-old male with a right knee effusion of unknown origin. This case was discussed with Dr. Ronoey who felt as though the knee should be aspirated at the bedside and that the collection noted on the ultrasound is likely to be a suprapatellar effusion and not an abscess that tracks into the right anterior thigh. This fluid will be sent to the laboratory for crystal analysis culture and Gram stain and cell count. If the patient can tolerate should continue the use of the naproxen as he is already tolerated this. Dr. Rooney will be by to evaluate the patient at the bedside this afternoon Consult Acknowledgment - Thank you for your consult request. ANETTE ROONEY MD 03/12/17 1128: Assessment/Plan Consult Acknowledgment - Thank you for your consult request. Attending MD Review Statement Attending Statement Attending MD Statement: examined this patient, discuss w/resident/PA/CERTIFIED MASTER SAFE TECHNICIAN, agreed w/resident/PA/CERTIFIED MASTER SAFE TECHNICIAN, reviewed EMR data (avail), reviewed images, Discussed with admitting medicine service attending Attending Assessment/Plan: John Bullard is 61 year old white male recently diagnosed with hairy cell leukemia who completed an initial course of chemotherapy 2 weeks ago and now presents with rash, chills and multiple joint swelling for which he was admitted to [facility] on 03/08/2017. His knee swelling has worsened since admission despite initial non-medication conservative treatments (NSAIA was initially avoided due to concerns regarding patients medical risks) and then brief trial of NSAIAs. He has not had fever, elevated WBCC or other signs of infection. He does have a diffuse rash on unknown etiology presumably related to his chemotherapy (as it began the day after rthis treatment was completed) however the rash is no worse over his knee region than in other areas and certainly does not appear to be centered there. Orthopaedic consultation was therefore requested once he had failed to respond to conservative care. The patient has a significant history of bilateral knee DJD but has maintained reasonable (although steadily decreasing) function over the years. 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 He reports varus deformity of the knee over many years without recent change. He has had intermittent swelling when he is overly active but this has never been as significant before and usually responds to ice, heat and NSAIA which is not the case now. He is having difficulty with both flexion and extension which he states is not his baseline (although it appears likely based on exam and radiographs that he already had significant limitation before to which he was able to accommodate). The rash is as yet unexplained and does appear to be associated with inflammatory component and some exudate in the knee region but also in other areas. The patient reports that his right elbow was very swollen immediately prior to admission (which has never been the case before and is not associated with any arthrtis that he is aware of) and that this resolved rapidly after admission followed shortly thereafter by his knee swelling. He reports some pain with weight-bearing on the right leg but most of his discomfort seems to be that he has to try and extend his knee in order to effectively weight-bear and this stretching to extend is the cause of his pain. The weight-bearing itself does not seem to be as painful as the extension against the resistance of his swollen joint (even after aspiration). His knee was aspirated earlier today with large nonpurulent effusion removed and sent for laboratory analysis. Results are pending but WBCC is low and there is no initial suggestion of infection. This appears to be a reactive effusion likely worsened in extent by his underlying degenerative disease and dysproportionate medial weightbearing due to his defortmity. He has been treated with Acyclovir since shortly after admission on 03/08/2017 @ 22:00 and Ceftazidime since 03/10/2017 @ 11:00. He has recently been started ( today after his aspiration) on Vancomycin. He is afebrile with stable vital signs. On examination he has a diffuse rash involving the right hemibody slightly more than the left and extending to all extremities. In the right lower extremity it actually stops just below the knee but involves his thigh and knee regions approximately equally. He is distally neurovascularly intact. He has a residual effusion which by patient and PA report is considerably decreased after aspiration. He is able to weightbear but with difficulty as he cannot extend his knee past 15 degrees of flexion and when he tries to push extension (near 10 degrees of flexion) he reports sufficient pain to limit his ambulation. His flexion is limited to 30 degrees at present. With passive assistance he can get almost to 45 degrees but this is again painful at the extreme. There is no instability. He has some residual palpable effusion but it is not tense. There is no instability. He has prominent medial osteophytes at the femoral and tibial joint line consistent with radiologic findings. His right elbow (which he reports was previously significantly swollen) is normal and has nearly full range of motion with no noticeable swelling or effusion. He has no anteromedial thigh or posterior calf tenderness. His radiologic studies show degenerative joint disease with significant medial joint space narrowing, medial joint surface irregularity and sclerosis, and medial osteophyte formation consistent with moderate to severe DJD and varus deformity. His other compartments and the left knee also show signs of significant degenerative change but no quite as severe as the medial compartment. Serum laboratory studies are consistent with post-chemotherapy neutropenia with nothing to suggest systemic or focal inflammatory or infectious process ( although immune response and therefore change in cellular levels may be blunted due to his underlying medical consitions and treatments). WBCC = 0.7, with H/H = 8.3/23.7. His urinalysis showed moderate bacteria but culture has been negative. Admission and more recent blood cultures are negative on interim readings. Overall serum labs are otherwise unremarkable and/or noncontributory. Aspiration WBCC = [id number] and RBCC = 462. Aspiration cultures are negative so far. At the moment this appears to be a reactive effusion however septic arthritis cannot be completely excluded. If effusion reaccumulates, reaspiration after patient off antibiotics would be the first consideration. Recommend physical therapy for knee ROM (especially extension) and as much conservative care as can be tolerated given his rash and other medical issues ( weightbearing and ROM as tolerated, ice, heat, michaela wrap for gentle compression, Voltaren gel, oral NSAIA). Would try to avoid serial aspirations unless recurrect effusion is associated with severe pain or mobility limitation in which case treatment options may be limited. No indication for surgical management at this point. Patient clearly understands that his severe underlying degenerative condition may preclude him from returning to his previous level of function and ambulation even if his effusion resolves despite his history of compensated (albeit steadily decreasing) function prior to this episode of swelling. He is encouraged to work closely with PT and to do his own exercises consistently as instructed to optimize his functional recovery and maintenance. The orthopaedic consultation service will follow daily. Please call for any significant changes related to the knee in general and the effusion specifically. Thank you for consulting Dr. Rooney and [facility] regarding Mr. Woo right knee orthopaedic management.
--- NOTE | 2017-03-11 10:37 | PN- Hematology ---
Subjective Subjective: He has new right knee pain. Pain is mostly in the scar area and suprapatellar. Pain is worse over the day yesterday and last night. US was done. He was started on naproxen. He continues to have fatigue. He has no fever or chills. Rash is about the same. Review of Systems: Constitutional: Denies: fever. fatigue Cardiovascular: Denies: chest pain. Respiratory: Reports: cough. Denies: sputum production, wheezing. GI: Reports: constipation Genitourinary: Denies: dysuria. Reports: decrease urine output Musculoskeletal: Reports: back pain, muscle pain, muscle stiffness, knee pain. Skin: Reports: rash. Hematologic/Endocrine: Denies: bruising, bleeding. All Other Systems: Reviewed and Negative Objective Vital Signs and I&Os Vital Signs Date Time Temp Pulse Resp B/P B/P Pulse O2 O2 Flow FiO2 Mean Ox Delivery Rate 03/11 0806 93 118/64 03/11 0703 98.6 93 20 118/64 93 Room Air 03/10 2217 99.7 96 20 112/60 94 Room Air 03/10 1405 98.2 98 20 122/80 96 Intake & Output 03/11 1600 03/11 0800 03/11 0000 03/10 1600 03/10 0800 03/10 0000 Intake Total 370 480 100 240 Output Total Balance 370 480 100 240 Intake, IV 150 100 Intake, Oral 220 480 240 Physical Exam: General Appearance: alert, awake, comfortable Head, Eyes, Ears, Nose, Throat: normal pharynx, dry mucosa membranes Respiratory: no respiratory distress, decreased breath sounds (at bases) Cardiovascular: regular rate/rhythm Gastrointestinal: normal bowel sounds, soft, no organomegaly Back: no vertebral tenderness Extremities: normal inspection, no edema; right knee with swelling and tender to palpation especially at incision area. Neurologic/Psych: awake, alert, oriented x 3 Skin: intact, normal color, rash (diffusely in all extremities, worse in lower extremities at thigh) Lymphatic: no anterior cervical virgie Current Medications: Current Medications Sig/Ayse Start time Last Medication Dose Route Stop Time Status Admin Acetaminophen 650 MG Q4P PRN 03/10 0800 AC PO Acyclovir 400 MG TID 03/08 2200 AC 03/11 PO 08 Amlodipine Besylate 5 MG DAILY 03/08 1717 AC 03/11 PO 08 Bisacodyl 10 MG ONCE ONE 03/10 1045 DC MD 03/10 1046 Ceftazidime 2,000 MG Q8H 03/10 1100 AC 03/11 Dextrose/Water 50 ML IV 0056 Ceftazidime 2,000 MG IQ8 03/09 0000 DC 03/10 Dextrose/Water 50 ML IV 1145 Cyanocobalamin 1,000 MCG DAILY 03/08 1717 AC 03/11 PO 0806 Cyclobenzaprine HCl 5 MG .STK-MED ONE 03/10 1453 DC PO 03/10 1454 Cyclobenzaprine HCl 5 MG TID PRN 03/08 2215 AC 03/11 PO 0808 Diclofenac Sodium 1 PRATEEK 4 TIMES/DAY 03/09 2230 AC 03/11 TOP 0805 Diphenhydramine HCl 1 PRATEEK TID 03/10 1000 AC 03/11 TOP 0805 Diphenhydramine HCl 25 MG Q6-PRN PRN 03/08 1645 AC 03/10 IV 0805 Docusate Sodium 100 MG BID 03/08 2200 AC 03/11 PO 0805 Filgrastim 480 MCG DAILY@2100 03/09 2100 AC 03/10 SC 2141 Hydromorphone HCl 2 MG Q4P PRN 03/09 0930 AC 03/11 IV 0056 Lidocaine 20 ML ONCE ONE 03/11 0945 DC 03/11 MN 03/11 0946 1007 Naproxen 250 MG TID 03/10 2300 DC 03/10 PO 2305 Naproxen 250 MG TID 03/10 2200 DC PO Naproxen 500 MG ONCE ONE 03/10 1645 DC 03/10 PO 03/10 1646 1808 Omeprazole 40 MG DAILY AC 03/09 2230 AC 03/11 PO 0604 Oxycodone HCl 20 MG Q12 03/09 1000 03/11 PO 0806 Patient Medication 1 ED .STK-MED ONE 03/10 1334 DC Teaching ED 03/10 1335 Polyethylene Glycol 17 GM DAILY 03/08 1723 AC 03/11 PO 0806 Senna/Docusate Sodium 1 TAB AT BEDTIME 03/08 2200 AC 03/10 PO 2139 Tramadol HCl 50 MG Q4P PRN 03/08 1645 AC 03/11 PO 0605 Results Last 24 Hours of Lab Results: Laboratory Tests 03/11 06/ 1000 0630 Chemistry Sodium (137 - 145 mmol/L) 130 L Potassium (3.5 - 5.1 mmol/L) 4.1 Chloride (98 - 107 mmol/L) 95 L Carbon Dioxide (22 - 30 mmol/L) 28 Anion Gap (5 - 16) 6 BUN (9 - 20 mg/dL) 14 Creatinine (0.7 - 1.2 mg/dL) 0.8 Estimated GFR (>60 ml/min) > 60 BUN/Creatinine Ratio (7 - 25 %) 17.5 Total Bilirubin (0.2 - 1.3 mg/dL) 1.9 H Direct Bilirubin (< 0.4 mg/dL) 1.2 H AST (17 - 59 U/L) 16 L ALT (21 - 72 U/L) 53 Alkaline Phosphatase (< 127 U/L) 111 Total Protein (6.3 - 8.2 g/dL) 4.9 L Albumin (3.5 - 5.0 g/dL) 2.7 L Hematology CBC w Diff MAN DIFF ORDERED WBC (4.8 - 10.8 /CUMM) 0.7 *L RBC (4.70 - 6.10 /CUMM) 2.41 L Hgb (14.0 - 18.0 G/DL) 8.3 L Hct (42 - 52 %) 23.7 L MCV (80.0 - 94.0 FL) 98.1 H MCH (27.0 - 31.0 PG) 34.2 H RDW (11.5 - 14.5 %) 15.3 H Plt Count (130 - 400 /CUMM) 91 L MPV (7.4 - 10.4 FL) 7.7 Gran % (42.2 - 75.2 %) 71.9 Lymphocytes % (20.5 - 51.1 %) 20.4 L Monocytes % (1.7 - 9.3 %) 0.3 L Eosinophils % (0 - 5 %) 7.1 H Basophils % (0.0 - 2.0 %) 0.3 Absolute Granulocytes (1.4 - 6.5 /CUMM) 0.5 L Segmented Neutrophils (42.2 - 75.2 %) 63 Band Neutrophils (0.0 - 5.0 %) 15 H Absolute Lymphocytes (1.2 - 3.4 /CUMM) 0.1 L Lymphocytes (20.5 - 51.1 %) 14 L Monocytes (1.7 - 9.3 %) 2 Absolute Monocytes (0.10 - 0.60 /CUMM) 0 L Eosinophils (0 - 5.0 %) 6 H Absolute Eosinophils (0.0 - 0.7 /CUMM) 0 Absolute Basophils (0.0 - 0.2 /CUMM) 0 Platelet Estimate (ADEQUATE) DECREASED Normocytic RBCs VERIFIED Normochromic RBCs VERIFIED PUBS MCHC (33.0 - 37.0 G/DL) 34.9 Other Body Source Fluid WBC Pending Fld Total RBCs Counted Pending Recent Imaging Studies: 1. No evidence of deep venous thrombosis involving the right lower extremity veins. 2. A 7.1 x 5.4 x 6.3 cm complex, septated cystic structure within the soft tissues of the right anterior thigh, superior to the right patella and extending into the mid right thigh. There is no internal vascularity on color Doppler imaging. This finding is entirely nonspecific. It may reflect an organizing fluid collection although there is no surrounding hypervascularity/ hyperemia. Other diagnostic considerations include but are not limited to a hematoma or perhaps a large knee joint effusion. Correlate with physical exam and patient symptomatology. Assessment/Plan Assessment/Recommendations: Mr. 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 Cultures have been negative. He has been afebrile. He is currently on antibiotic with ceftazidime. Right knee is swollen with ? cyst/effusion. This is worse today. CT may be helpful along with orthopedic consult for evaluation. Anemia is improved along with platelet counts. WBC is still low. He can be continued on filgrastim. Rash is still persistent. It seems medication related. May need dermatology evaluation. If persistent rash, may conIf cultures are negative and afebrile, he may be able to switch back to prophylactic antibiotic. May need to wait til right knee evaluation is completed. Recommendations: 1. Continue current antibiotic 2. Continue acyclovir and diflucan 3. Continue filgrastim 480 mcg (5 mcg/kg rounding up) SC daily until ANC >1500 4. Orthopedic consultation 5. CT/MRI of the right knee/thigh 6. consider dermatology consult 7. Consider holding acyclovir and diflucan if rash persist Please call [phone] with any questions or concerns. Problem List: 1. Hairy cell leukemia not having achieved remission 2. Pancytopenia 3. Arthritis of knee
[2017-03-11 15:36] VITALS: BP 116/60
--- NOTE | 2017-03-11 15:54 | Cons- Infect Disease ---
General Information and HPI Consulting Request Date of Consult: 03/11/17 Requested By: MIESHA CRONIN M.D Reason for Consult: Right knee arthritis in a neutropenic patient Source of Information: patient, family, old records History of Present Illness: This is a 61-year-old man diagnosed with hairy cell leukemia 2 months prior to admission, begun on chemotherapy 3 weeks prior to admission, with Allopurinol started 1 week earlier, with the development of a diffuse, pruritic maculopapular rash 1 week after chemotherapy and begun on Levaquin and Acyclovir prophylaxis at that time, with Allopurinol discontinued, treated with Neupogen twice a week for the last several weeks because of persistent neutropenia, admitted on March 08 after he was referred to the emergency room because of fatigue, chills and sweats without documented fevers, shortness of breath, nausea, left-sided back pain felt to be muscle spasm and a persistent pruritic rash. On admission he was afebrile. Laboratory data revealed a white blood cell count of 600, H&H 7 and 21, platelets 93,000, BUN/creatinine 18 and 0.9, bilirubin 1.7. Urinalysis rare RBC/rare WBCs. Chest x-ray was negative. He was begun on Ceftazidime and Fluconazole and continued on Acyclovir and Neupogen. He was given pain medication and transfused. On March 09 he was noted to have right knee pain and swelling. An x-ray revealed a small suprapatellar joint effusion and chondrocalcinosis. On March 10 a Doppler of the right lower extremity revealed a 7 x 5 x 6 cm complex, septated cystic structure within the soft tissues of the right anterior thigh, superior to the right patella and extending into the mid right thigh. This morning he underwent a right knee arthrocentesis, which revealed 15,000 white blood cells. He has been afebrile since admission, though there was a report of a temperature to 100.9 on March 09. He feels somewhat improved from admission. He reports continued chills intermittently, though not in the last 24 hours. He continues to complain of a pruritic rash. He has no further shortness of breath and denies any cough or chest pain. He notes occasional nausea but no abdominal pain or diarrhea. He has some hesitancy on urination but no dysuria. Allergies/Medications Allergies: Coded Allergies: Penicillins (UNKNOWN 11/17/16) raspberry (UNKNOWN 03/08/17) strawberry (UNKNOWN 03/08/17) Home Med List: Acyclovir 400 MG TABLET 1 TAB PO TID ANTIVIRAL (Reported) Albuterol Sulfate (Proair Hfa) 90 MCG HFA.AER.AD 2 PUF INH Q6H PRN RESPIRATORY (Reported) Allopurinol 300 MG TABLET 1 TAB PO DAILY UNKNOWN (Reported) Amlodipine Besylate 5 MG TABLET 1 TAB PO DAILY HIGH BLOOD PRESSURE Cinnamon Bark (Cinnamon) (Unknown Strength) CAPSULE (Unknown Dose) PO DAILY SUPPLEMENT (Reported) Clobetasol Propionate 0.05 % CREAM..G. 1 PRATEEK TOP BID SKIN (Reported) apply to affected area(s) Cyanocobalamin (Vitamin B-12) 1,000 MCG TABLET 1 TAB PO DAILY SUPPLEMENT ( Reported) Brook (Unknown Strength) CAPSULE (Unknown Dose) PO DAILY SUPPLEMENT ( Reported) Glucosa Cardenas 2KCL/Chondroitin Cardenas (Glucosamine & Chondroitin Cap) 500 MG-400 MG CAPSULE 1 CAP PO TID SUPPLEMENT (Reported) Lactobacillus Acidophilus (Probiotic) (Unknown Strength) CAPSULE (Unknown Dose ) PO DAILY SUPPLEMENT (Reported) Levofloxacin 500 MG TABLET 1 TAB PO DAILY ANTIBIOTIC (Reported) Multivitamin (Multi-Day Vitamins) 1 EACH TABLET 1 TAB PO DAILY SUPPLEMENT ( Reported) Naproxen Sodium (Aleve) 220 MG TABLET 1 TAB PO BID PAIN (Reported) Morris-3 Fatty Acids/Fish Oil (Fish Oil 1,000 MG Capsule) 340 MG-1,000 MG CAPSULE 1,000 MG PO DAILY SUPPLEMENT (Reported) Valacyclovir HCl (Valacyclovir) 1,000 MG TABLET 1 TAB PO TID ANTIVIRAL ( Reported) Past History Travel History Traveled to [place] past 21 day No Medical History Blood Transfusion Hx: Yes Neurological: vertigo EENT: NONE Cardiovascular: hypertension Respiratory: NONE Gastrointestinal: NONE Hepatic: NONE Renal: NONE Musculoskeletal: Arthritis (knees) Psychiatric: NONE Endocrine: NONE Blood Disorders: NONE Cancer(s): SON CELL [employer] TECH/Reproductive: NONE History of MRSA: No History of VRE: No History of CDIFF: No Surgical History Surgical History: DETACHED RETINA RT EYE, 3 surgeries on his right knee Psychosocial History Where Do You Live? Home Who Do You Live With? spouse Services at Home: None Primary Language: Italian Smoking Status: Never Smoked ETOH Use: occasional use (last use Tuesday) Illicit Drug Use: denies illicit drug use Living Will? no Functional Ability ADLs Independent: dressing, eating, toileting, bathing. Ambulation: independent IADLs Independent: shopping, housework, finances, food prep, telephone, transportation , medication admin. Review of Systems Review of Systems All Other Systems: Reviewed and Negative Exam & Diagnostic Data Last 24 Hrs of Vital Signs/I&O Vital Signs Date Time Temp Pulse Resp B/P B/P Pulse O2 O2 Flow FiO2 Mean Ox Delivery Rate 03/11 0806 93 118/64 03/11 0703 98.6 93 20 118/64 93 Room Air 03/10 2217 99.7 96 20 112/60 94 Room Air Intake & Output 03/11 1600 03/11 0800 03/11 0000 Intake Total 370 480 Output Total Balance 370 480 Intake, IV 150 Intake, Oral 220 480 Patient 220 lb Weight Physical Exam Other Physical Findings: He is awake and alert in no acute distress. He is afebrile. Skin reveals a diffuse maculopapular rash on his trunk, back and extremities, lower more than upper. HEENT exam is negative for thrush. Neck is supple with no adenopathy. Lungs are clear. Heart regular rhythm with no murmur. Abdomen is obese, soft, nontender with positive bowel sounds. Back no CVA tenderness. Extremities right knee swelling, with no erythema, decreased range of motion and tender to palpation. Neuro is without focality. Last 24 Hours of Lab Results: Laboratory Tests 03/11 03/11 1000 0630 Chemistry Sodium (137 - 145 mmol/L) 130 L Potassium (3.5 - 5.1 mmol/L) 4.1 Chloride (98 - 107 mmol/L) 95 L Carbon Dioxide (22 - 30 mmol/L) 28 Anion Gap (5 - 16) 6 BUN (9 - 20 mg/dL) 14 Creatinine (0.7 - 1.2 mg/dL) 0.8 Estimated GFR (>60 ml/min) > 60 BUN/Creatinine Ratio (7 - 25 %) 17.5 Total Bilirubin (0.2 - 1.3 mg/dL) 1.9 H Direct Bilirubin (< 0.4 mg/dL) 1.2 H AST (17 - 59 U/L) 16 L ALT (21 - 72 U/L) 53 Alkaline Phosphatase (< 127 U/L) 111 Total Protein (6.3 - 8.2 g/dL) 4.9 L Albumin (3.5 - 5.0 g/dL) 2.7 L Hematology CBC w Diff MAN DIFF ORDERED WBC (4.8 - 10.8 /CUMM) 0.7 *L RBC (4.70 - 6.10 /CUMM) 2.41 L Hgb (14.0 - 18.0 G/DL) 8.3 L Hct (42 - 52 %) 23.7 L MCV (80.0 - 94.0 FL) 98.1 H MCH (27.0 - 31.0 PG) 34.2 H RDW (11.5 - 14.5 %) 15.3 H Plt Count (130 - 400 /CUMM) 91 L MPV (7.4 - 10.4 FL) 7.7 Gran % (42.2 - 75.2 %) 71.9 Lymphocytes % (20.5 - 51.1 %) 20.4 L Monocytes % (1.7 - 9.3 %) 0.3 L Eosinophils % (0 - 5 %) 7.1 H Basophils % (0.0 - 2.0 %) 0.3 Absolute Granulocytes (1.4 - 6.5 /CUMM) 0.5 L Segmented Neutrophils (42.2 - 75.2 %) 63 Band Neutrophils (0.0 - 5.0 %) 15 H Absolute Lymphocytes (1.2 - 3.4 /CUMM) 0.1 L Lymphocytes (20.5 - 51.1 %) 14 L Monocytes (1.7 - 9.3 %) 2 Absolute Monocytes (0.10 - 0.60 /CUMM) 0 L Eosinophils (0 - 5.0 %) 6 H Absolute Eosinophils (0.0 - 0.7 /CUMM) 0 Absolute Basophils (0.0 - 0.2 /CUMM) 0 % Normal PMNs (%) 100 Platelet Estimate (ADEQUATE) DECREASED Normocytic RBCs VERIFIED Normochromic RBCs VERIFIED PUBS MCHC (33.0 - 37.0 G/DL) 34.9 Other Body Source Fluid WBC (0 - 5 /CUMM) 92198 H Fld Total RBCs Counted (0 /CUMM) 462 H Last 24 Hours of [place] Results: Blood cultures March 08 negative Urine culture March 08 negative Right knee synovial fluid culture March 11 pending Diagnostic Data Recent Imaging Findings: Chest x-ray March 08 negative. Doppler of the right upper extremity March [address] of the abdomen and pelvis March 09 mild splenomegaly X-ray of the right knee March 09 revealed a small suprapatellar joint effusion, chondrocalcinosis and severe tricompartmental degenerative changes of the right knee Doppler of the right lower extremity March 10 revealed a 7 x 5 x 6 cm complex, septated cystic structure within the soft tissues of the right anterior thigh, superior to the right patella and extending into the mid right thigh. Assessment/Plan Assessment/Plan Impression: This is a 61-year-old man diagnosed with hairy cell leukemia 2 months prior to admission and begun on chemotherapy 3 weeks prior to admission, preceded by Allopurinol, and with the addition of Levaquin and Acyclovir prophylaxis and Neupogen following the chemotherapy, with the development of a pruritic rash, initially attributed to Allopurinol, which was discontinued, admitted on March 08 with weakness, fatigue, chills, nausea, shortness of breath and persistent pruritic rash, found to be afebrile but persistently neutropenic, begun empirically on Ceftazidime, with the development of pain and swelling in the right knee now status post arthrocentesis earlier today. The possibility of a septic joint must be considered, as the white blood cell count, which is mildly elevated and lower than what is usually seen with a septic joint, may not be helpful in this neutropenic patient. He does have chondrocalcinosis and severe osteoarthritis on the x-ray; therefore the inflammation may be secondary to pseudogout or a flareup of osteoarthritis or, possibly gout, though his uric acid is normal. The recent fever, not well documented, began when his right knee symptoms began and may be secondary to this. Of note he was not febrile on admission and his cultures remain negative; therefore the need or role of continuing empiric Ceftazidime is unclear and can be reevaluated if he remains stable, particularly if no other source of infection is identified. Of note he does spend time outdoors; therefore a tick borne infection, such as Anaplasma, given his neutropenia and thrombocytopenia, or Lyme Disease, given his arthritis , could be considered. Note the Fluconazole was discontinued yesterday per Oncology, but he remains on Acyclovir prophylaxis and will defer treatment with these agents to Oncology. His rash may be medication related, but the possibility of Sweet syndrome must also be considered. Suggestion: 1. Follow-up synovial fluid culture and crystal analysis 2. Lyme titer and Anaplasma PCR and review peripheral smear for morulae 3. Repeat blood cultures 2 4. Would treat empirically for pseudogout pending above and reevaluate the use of Naprosyn in this thrombocytopenic patient 5. Consider skin biopsy if rash does not resolve 6. Begin Vancomycin 1.25 g IV every 12 hours pending above 7. Continue Ceftazidime pending above 8. Continue Acyclovir per Oncology Consult Acknowledgment - Thank you for your consult request.
[2017-03-11 22:56] VITALS: BP 132/60
[2017-03-12 06:29] VITALS: BP 136/72
[2017-03-12 08:19] LABS: ABSOLUTE BASOPHIL COUNT 0 /CUMM (0.0-0.2); ABSOLUTE EOSINOPHIL COUNT 0.1 /CUMM (0.0-0.7); ABSOLUTE GRANULOCYTE CT 0.5 /CUMM (1.4-6.5); ABSOLUTE MONOCYTE COUNT 0 /CUMM (0.10-0.60)
--- NOTE | 2017-03-12 08:41 | PN- Housestaff ---
JESSICA JUNIOR,ZAKIA 03/12/17 0841: Subjective Follow-up For: Febrile neutropenia; Right knee swelling, ruling out septic arthrtis. Subjective: Followed up the patient today. He is resting comfortably, mentions that his pain is much better today, and his swelling is gone, still has some rashes but the itchiness has decreased. He does not offer any complaints today. Review of Systems Constitutional: Reports: see HPI. Objective Last 24 Hrs of Vital Signs/I&O Vital Signs Date Time Temp Pulse Resp B/P B/P Pulse O2 O2 Flow FiO2 Mean Ox Delivery Rate 03/12 1425 78.2 98 20 1205/80 96 03/12 1000 86 122/74 03/12 0629 97.4 96 16 136/72 98 Room Air 03/11 2256 99.1 97 20 132/60 91 Room Air Intake & Output 03/12 1600 03/12 0800 03/12 0000 Intake Total 1550 200 830 Output Total Balance 1550 200 830 Intake, IV 350 350 Intake, Oral 1200 200 480 Number 1 Bowel Movements Physical Exam General Appearance: Alert, Oriented X3, Cooperative, No Acute Distress Other Physical Findings: Patient is more comfortable than yesterday. His right knee is less swollen, is more mobile, and the rashes are less prominent today. Rest of his clinical finding is the same as yesterday's. Current Medications: Current Medications Sig/Ayse Start time Last Medication Dose Route Stop Time Status Admin Acetaminophen 650 MG Q4P PRN 03/10 0800 AC PO Acyclovir 400 MG TID 03/08 2200 AC 03/12 PO 2141 Amlodipine Besylate 5 MG DAILY 03/08 1717 AC 03/12 PO 1000 Ceftazidime 2,000 MG Q8H 03/10 1100 AC 03/12 Dextrose/Water 50 ML IV 1920 Cyanocobalamin 1,000 MCG DAILY 03/08 1717 AC 03/12 PO 1000 Cyclobenzaprine HCl 5 MG .STK-MED ONE 03/12 0452 DC PO 03/12 0453 Cyclobenzaprine HCl 5 MG TID PRN 03/08 2215 AC 03/12 PO 0452 Diclofenac Sodium 1 PRATEEK 4 TIMES/DAY 03/09 2230 AC 03/12 TOP 2142 Diphenhydramine HCl 50 MG .STK-MED ONE 03/11 2345 DC IM 03/11 2346 Diphenhydramine HCl 1 PRATEEK TID 03/10 1000 AC 03/12 TOP 2141 Diphenhydramine HCl 25 MG Q6-PRN PRN 03/08 1645 AC 03/11 IV 2347 Docusate Sodium 100 MG BID 03/08 2200 AC 03/12 PO 2141 Filgrastim 480 MCG DAILY@2100 03/09 2100 AC 03/12 SC 2142 Hydromorphone HCl 2 MG Q4P PRN 03/09 0930 AC 03/11 IV 0056 Naproxen 500 MG BID 03/11 1215 AC 03/12 PO 2142 Omeprazole 40 MG DAILY AC 03/09 2230 AC 03/12 PO 0528 Oxycodone HCl 20 MG Q12 03/09 1000 AC 03/12 PO 2141 Polyethylene Glycol 17 GM DAILY 03/08 1723 AC 03/12 PO 0959 Senna/Docusate Sodium 1 TAB AT BEDTIME 03/08 220 AC 03/12 PO 2141 Sodium Phosphate 1 UNIT ONCE ONE 03/12 0600 DC OR 03/12 0601 Tramadol HCl 50 MG Q4P PRN 03/08 1645 AC 03/12 PO 1310 Vancomycin HCl 1,250 MG BID 03/11 220 AC 03/12 Sodium Chloride 250 ML IV 214 Last 24 Hrs of Lab/Shekhar Results Last 24 Hrs of Labs/Mics: Laboratory Tests 03/12/17 0605: Anion Gap 7, Estimated GFR > 60, BUN/Creatinine Ratio 17.5, Total Bilirubin 2.8 H, Direct Bilirubin 1.9 H, AST 20, ALT 66, Alkaline Phosphatase 165 H, Total Protein 5.0 L, Albumin 2.6 L, CBC w Diff MAN DIFF ORDERED, RBC 2.40 L, MCV 98.5 H, MCH 33.9 H, RDW 15.3 H, MPV 7.7, Gran % 70.8, Lymphocytes % 19.1 L, Monocytes % 0.4 L, Eosinophils % 9.6 H, Basophils % 0.1, Absolute Granulocytes 0.5 L, Segmented Neutrophils 55, Band Neutrophils 17 H, Absolute Lymphocytes 0.1 L, Lymphocytes 21, Monocytes 1 L, Absolute Monocytes 0 L, Eosinophils 5, Absolute Eosinophils 0.1, Absolute Basophils 0, Myelocytes 1 H, Nucleated RBCs 2 H, Platelet Estimate DECREASED, Polychromasia 1+, Hypochromic-Microcytic 1+, Poikilocytosis 2+, Anisocytosis 2+, PUBS MCHC 34.4 03/12/17 0600: Lyme Disease Antibody Pending Assessment/Plan Assessment: 61-year-old male with past medical history of recently diagnosed hairy cell leukemia, hypertension, arthritis, was sent to emergency by Dr. Gabriela Dumont, oncologist, for chills and rigor within the past 24 hours. He is currently being managed in the general medical floor for the following issues: PANCYTOPENIA: #Neutropenic fever, 2/2 chemotherapy for hairy Cell Leukemia Patient does not have recorded high degree temperature but has chills/rigor, and his absolute neutrophil count calculated is still around 500 which is well below 1500 to call neutropenia. Given patient's recent history of leukemia and chemotherapy, a broad-spectrum antibiotic, antifungal and antiviral has to be started and watched very closely. -Continue Ceftazidime, acyclovir, per oncology consult. Fluconazole was discontinued on . -Patient underwent right knee thoracentesis on Tuesday, and subsequently IV vancomycin was added to his regimen to cover staph aureus -Continue Filgastrim 480 g daily until ANC is more than 1500 -Follow-up pancultures -Avoiding acetaminophen as it can mask fever, and NSAIDs as the platelet count is low, for pain management. Will use Tramdol and opiates, with aggressive bowel regimen. He received Naproxen yesterday anyway. -Appreciate oncology consultation. Will follow recommendations. #Right knee pain/swelling: Patient started to have right knee pain and swelling since 03/09/2017, received painkillers and x-ray, which showed small amount of effusion. His pain and swelling yesterday was significantly higher than the morning, thus an urgent ultrasound Doppler of right lower extremity was done to rule out DVT and orthopedics consultation placed. Concerns were regarding right knee effusion, septic arthritis, collections/hematoma. Patient was explained/updated about the conditions. Orthopedic evaluation this morning recommended right knee effusion tapping and cell count, culture, crystal studies were sent for investigation. Initial cell count appears to be 15,895 with 100% neutrophils, which is suggestive of septic arthritis although the total count is low, but consideration should be made that this patient is neutropenic to begin with. Infectious disease nurse consultant suggested continuing the antibiotics that are on currently along with vancomycin to cover staph aureus, while we wait for the culture reports. #Anemia Patient's hemoglobin/hematocrit was 7.2/21.0, possibly due to chemotherapy. Received 3 units of PRBC so far. (1 in the ED, and 2 in the GM floor). His h/h today is 8.1/23.7. We'll repeat CBC tomorrow. #Low Plt- 92 today, following closely as the patient is not bleeding actively. #Hypertension We'll continue home medication of amlodipine 5 mg daily by mouth. #Back pain Getting better. Managing pain with opiates. Patient has 3 orders of bowel regimen. #Skin rash Patient's skin rash was maculopapular and itchy, making differentials like allergy, drug induced, infection which could be fungal, bacterial, viral exanthem. Patient currently is on antifungal, antibacterial and antiviral regimen, although the current regimen will not cover every possibility, will watch closely. Concerns regarding the rashes being due to one of the medications allopurinol was raised before admission and was already held. The patient continues to have rash, that is itchy, thus warranting a formal dermatologic evaluation. A request to consult on the patient was made on Tuesday. Continue Benadryl cream for now. Rash is better today as mentioned in the clinical exam. #Diet: Heart healthy #DVT ppx: ALPS only as he is thrombocytopenic #Code status: Full code Problem List: 1. Pancytopenia 2. Arthritis of knee Pain Ratin Pain Location: rt knee Pain Goal: Pain 4 or less Pain Plan: prn Tomorrow's Labs & Rationales: CBC, BEP, LFT FAINA JUNIOR,[facility] 03/12/17 1311: Attending MD Review Statement Attending Statement Attending MD Statement: examined this patient, discuss w/resident/PA/SUPPLY CHAIN INTERN, agreed w/resident/PA/SUPPLY CHAIN INTERN, discussed with family, reviewed EMR data (avail), discussed with nursing, discussed with case mgmt, reviewed images, amended to note Attending Assessment/Plan: Resting in bed. Complains of right knee pain. Status post diagnostic arthrocentesis. Culture remains negative. We'll continue the current medicine regimen for now. CBC stable. Follow-up bag bailer recommendations for his rash, as he still has persistent rash.
[2017-03-12 09:08] LABS: ABSOLUTE LYMPH COUNT 0.1 /CUMM (1.2-3.4); BASOPHIL % 0.1 % (0.0-2.0); EOSINOPHIL % 9.6 % (0-5); GRANULOCYTE % 70.8 % (42.2-75.2); HEMATOCRIT 23.7 % (42-52); MEAN CORPUSCULAR HGB 33.9 PG (27.0-31.0); MEAN CORPUSCULAR HGB CONC 34.4 G/DL (33.0-37.0); MEAN CORPUSCULAR VOLUME 98.5 FL (80.0-94.0); MEAN PLATELET VOLUME 7.7 FL (7.4-10.4); PLATELET COUNT 92 /CUMM (130-400); RBC DISTRIBUTION WIDTH 15.3 % (11.5-14.5)
[2017-03-12 09:21] LABS: WHITE BLOOD CELL COUNT 0.7 /CUMM (4.8-10.8)
[2017-03-12 14:25] VITALS: BP 120/60; BP 1205/80
[2017-03-12 22:21] VITALS: BP 118/60
--- NOTE | 2017-03-13 02:51 | NUR ---
AT APPROX 0100 PATIENT WALKING AROUND CERVANTES CONFUSED. PATIENT HAD RIPPED IV OUT AND WAS CONFUSED TO PERSON, PLACE AND TIME. PATIENT DID NOT KNOW HE WAS AT [facility] AND DID NOT KNOW WHERE HE WAS OR WHY HE WAS HERE. PATIENT WAS CONFUSED FOR APPROX 10 MINS. WE TRIED TO REOREINTATE HIM TO PERSON. PLACE AND TIME. KISHORE GRIDER PAGED AND HE CAME UP TO ROOM OF PATIENT. MD FERRARA TALKED WITH PATIENT AND TRIED TO REORIENT PATIENT TO ROOM. PATIENT CALLED HIS AND SON AT APPROX 0130 AND WAS TRYING TO FIGURE OUT WHAT WAS GOING ON. SON CALLED HOSPITAL AND I SPOKE WITH HIM. HE CALLED HIS FATHER BACK ON CELL TO REORIENTATE HIM TO PERSON PLACE AND TIME. PATIENT WAS PLACED BACK IN BED, WITH BED ALARM AND FELL BACK ASLEEP. WENT BACK IN HOUR LATER TO REINSERT IV IN PATIENT AND PATIENT WAS ORIENTATED BACK TO PERSON PLACE AND TIME. IV PLACED. PATIENT BACK TO SLEEP. BED ALRM IN PLACE. WILL CONTINUE TO MONITOR
[2017-03-13 07:02] VITALS: BP 122/72
--- NOTE | 2017-03-13 08:47 | PN- Housestaff ---
JESSICA JUNIOR,ZAKIA 03/13/17 0846: Subjective Follow-up For: Febrile neutropenia; Right knee swelling. Subjective: Followed up the patient today. He is resting comfortably, mentions that his pain is much better today, rashes decreasing. He wants to kow that plan of care is, for his knee, and blood numbers. He had an episode of confusion around midnight last night which was amenable to reorientation. he remembers the incident this morning. Review of Systems Constitutional: Reports: no symptoms. Objective Last 24 Hrs of Vital Signs/I&O Vital Signs Date Time Temp Pulse Resp B/P B/P Pulse O2 O2 Flow FiO2 Mean Ox Delivery Rate 03/13 1717 99.0 95 20 122/58 91 Room Air 03/13 1403 98.2 80 20 125/77 98 / 0940 78 140/70 03/13 0702 98.1 90 20 122/72 95 Room Air 03/12 2221 98.2 94 20 118/60 94 Room Air Intake & Output 03/13 1600 03/13 0800 03/13 0000 Intake Total 700 730 Output Total Balance 700 730 Intake, IV 250 Intake, Oral 700 480 Number 2 Bowel Movements Physical Exam General Appearance: Alert, Oriented X3, Cooperative, No Acute Distress Other Physical Findings: Rashes are better. Rt knee looks better than yesterday with decreased swelling, and better range of movement. Rest of the exam is the same as yesterday's. Current Medications: Current Medications Sig/Ayse Start time Last Medication Dose Route Stop Time Status Admin Acetaminophen 650 MG Q4P PRN 03/10 0800 AC PO Acyclovir 400 MG TID 03/08 2200 AC 03/13 PO 1635 Amlodipine Besylate 5 MG DAILY 03/08 1717 AC 03/13 PO 0940 Ceftazidime 2,000 MG Q8H 03/10 1100 DC 03/13 Dextrose/Water 50 ML IV 0239 Cyanocobalamin 1,000 MCG DAILY 03/08 1717 AC 03/13 PO 0940 Cyclobenzaprine HCl 5 MG TID PRN 03/08 2215 AC 03/12 PO 0452 Diclofenac Sodium 1 PRATEEK 4 TIMES/DAY 03/09 2230 AC 03/13 TOP 1302 Diphenhydramine HCl 1 PRATEEK TID 03/10 1000 AC 03/13 TOP 1635 Diphenhydramine HCl 25 MG Q6-PRN PRN 03/08 1645 AC 03/11 IV 2347 Docusate Sodium 100 MG BID 03/08 2200 AC 03/13 PO 0939 Filgrastim 480 MCG DAILY@2100 03/09 2100 AC 03/12 SC 2142 Hydromorphone HCl 2 MG Q4P PRN 03/09 0930 AC 03/11 IV 0056 Naproxen 500 MG BID 03/11 1215 AC 03/12 PO 214 Omeprazole 40 MG DAILY AC 03/09 2230 AC 03/12 PO 0528 Oxycodone HCl 20 MG Q12 03/09 1000 AC 03/12 PO 2141 Polyethylene Glycol 17 GM DAILY 03/08 1723 AC 03/13 PO 0939 Senna/Docusate Sodium 1 TAB AT BEDTIME 03/08 2200 AC 03/12 PO 214 Tramadol HCl 50 MG Q4P PRN 03/08 1645 AC 03/12 PO 1310 Vancomycin HCl 1,250 MG BID 03/11 220 DC 03/12 Sodium Chloride 250 ML IV 214 Last 24 Hrs of Lab/Shekhar Results Last 24 Hrs of Labs/Mics: Laboratory Tests 03/13/17 0802: Anion Gap 7, Estimated GFR > 60, BUN/Creatinine Ratio 18.8, Total Bilirubin 1.5 H, Direct Bilirubin 0.9 H, AST 10 L, ALT 48, Alkaline Phosphatase 138 H, Total Protein 4.7 L, Albumin 2.4 L, CBC w Diff MAN DIFF ORDERED, RBC 2.16 L, MCV 98.7 H, MCH 34.0 H, RDW 15.2 H, MPV 7.4, Gran % 63.3, Lymphocytes % 30.9, Monocytes % 0.1 L, Eosinophils % 5.6 H, Basophils % 0.1, Absolute Granulocytes 0.7 L, Segmented Neutrophils 59, Band Neutrophils 18 H, Absolute Lymphocytes 0.4 L, Lymphocytes 15 L, Monocytes 1 L, Absolute Monocytes 0 L, Eosinophils 7 H, Absolute Eosinophils 0.1, Absolute Basophils 0, Platelet Estimate DECREASED, Anisocytosis 1+, PUBS MCHC 34.5 Assessment/Plan Assessment: 61-year-old male with past medical history of recently diagnosed hairy cell leukemia, hypertension, arthritis, was sent to emergency by Dr. Gabriela Dumont, oncologist, for chills and rigor within the past 24 hours. He is currently being managed in the general medical floor for the following issues: PANCYTOPENIA: #Neutropenic fever, 2/2 chemotherapy for hairy Cell Leukemia T max 99.1 recorded. Patient responding to Nuepogen, albeit slowly. Emperic antibiotic, antiviral, and antifungal coverage, along with Vancomycin to cover Staph aureus as a possibility from Rt knee aspiration was started. * Since the effusion is sterile without crystals, osteoarthritis seems to be the cause of effusion. However, steroids in the setting of immune compromise is not recommended by Ortho services. * But this still does not give us the cause of the initial chills and neutropenia. Patient seems to be getting better nonetheless, with better counts daily. * Prophylactic antiobiotics have been discontinued today per ID and Onco consultation * Continue Filgastrim 480 g daily until ANC is more than 1500 * Follow up Lyme titer and Anaplasma PCR. * Continue Acyclovir for now * Naproxyn to continue for now as antiinflammatory, but also considering Pseudogout in differential, for which Colchicine can be an alternative * Appreciate oncology and ID consultation. #Anemia Patient's hemoglobin/hematocrit was 7.2/21.0, possibly due to chemotherapy. Received 3 units of PRBC. Hb 7.4 noted today, so transfusing 1 U PRBC. Oncology notified. We'll repeat CBC tomorrow. #Low Plt- 92 today, following closely as the patient is not bleeding actively. #Hypertension We'll continue home medication of amlodipine 5 mg daily by mouth. #Back pain Getting better. Managing pain with opiates. Patient has 3 orders of bowel regimen. #Skin rash Rash is getting better daily. Still awaiting Dermatology consultation. No note in EMR. Patient however seems to believe the Derm physician has seen him in this admission. No record with nursing ataff either. * Will follow up on consultation. #Diet: Heart healthy #DVT ppx: ALPS only as he is thrombocytopenic #Code status: Full code Problem List: 1. Pancytopenia 2. Chills (without fever) 3. Anemia 4. Arthritis of knee 5. Back pain 6. Hairy cell leukemia not having achieved remission Pain Ratin Pain Location: rt knee Pain Goal: Pain 4 or less Pain Plan: prn, ketorolac is also present in the regimen Tomorrow's Labs & Rationales: CBC, BEP, LFT f/u on PCR and Lyme titres, to search cause fo fever FAINA JUNIOR,[place] 03/13/17 1310: Attending MD Review Statement Attending Statement Attending MD Statement: examined this patient, discuss w/resident/PA/AUTOMATIC COIN MACHINE MECHANIC, agreed w/resident/PA/AUTOMATIC COIN MACHINE MECHANIC, discussed with family, reviewed EMR data (avail), discussed with nursing, discussed with case mgmt, reviewed images, amended to note Attending Assessment/Plan: Patient sitting comfortably in bed . Still has knee discomfort but it's improved as compared to yesterday . Complains of stiffness in the knee. Drop in hemoglobin to 7.4 noted. Asians many synovitic fluid culture has been negative so far. Recommendations: 1. Transfuse 1 unit of blood. Discuss with hematology/oncology about the CBC findings. 2. Will continue naproxen for now because most acute pseudogout flares resolve within 7 to 14 days after starting treatment with NSAIDs. His symptoms are better, other than the stiffness that is complaining of. Please make sure he works with physical therapy to help with the stiffness. 4. Appreciate ID input, continue antibiotics as the cultures are negative. prn, ketorolac is also present in the regimen Tomorrow's Labs & Rationales: CBC, BEP, LFT FAINA JUNIOR,[place] 03/13/17 1310: Attending MD Review Statement Attending Statement Attending MD Statement: examined this patient, discuss w/resident/PA/AUTOMATIC COIN MACHINE MECHANIC, agreed w/resident/PA/AUTOMATIC COIN MACHINE MECHANIC, discussed with family, reviewed EMR data (avail), discussed with nursing, discussed with case mgmt, reviewed images, amended to note Attending Assessment/Plan: Patient sitting comfortably in bed . Still has knee discomfort but it's improved as compared to yesterday . Complains of stiffness in the knee. Drop in hemoglobin to 7.4 noted. Asians many synovitic fluid culture has been negative so far. Recommendations: 1. Transfuse 1 unit of blood. Discuss with hematology/oncology about the CBC findings. 2. Will continue naproxen for now because most acute pseudogout flares resolve within 7 to 14 days after starting treatment with NSAIDs. His symptoms are better, other than the stiffness that is complaining of. Please make sure he works with physical therapy to help with the stiffness. 4. Appreciate ID input, continue antibiotics as the cultures are negative.
[2017-03-13 08:55] LABS: ABSOLUTE BASOPHIL COUNT 0 /CUMM (0.0-0.2); ABSOLUTE EOSINOPHIL COUNT 0.1 /CUMM (0.0-0.7); ABSOLUTE MONOCYTE COUNT 0 /CUMM (0.10-0.60); MEAN PLATELET VOLUME 7.4 FL (7.4-10.4); PLATELET COUNT 96 /CUMM (130-400)
[2017-03-13 09:09] LABS: ABSOLUTE GRANULOCYTE CT 0.7 /CUMM (1.4-6.5); ABSOLUTE LYMPH COUNT 0.4 /CUMM (1.2-3.4); BASOPHIL % 0.1 % (0.0-2.0); EOSINOPHIL % 5.6 % (0-5); GRANULOCYTE % 63.3 % (42.2-75.2); HEMATOCRIT 21.3 % (42-52); MEAN CORPUSCULAR HGB CONC 34.5 G/DL (33.0-37.0); MEAN CORPUSCULAR VOLUME 98.7 FL (80.0-94.0); RBC DISTRIBUTION WIDTH 15.2 % (11.5-14.5); RED BLOOD CELL CT 2.16 /CUMM (4.70-6.10)
[2017-03-13 09:27] LABS: WHITE BLOOD CELL COUNT 1.1 /CUMM (4.8-10.8)
--- NOTE | 2017-03-13 10:07 | PN- Infect Dx ---
Subjective Subjective: Afebrile. He continues to complain of pain in the right knee. His rash has improved with no pruritus. Objective Last 24 Hrs of Vital Signs/I&O Vital Signs Date Time Temp Pulse Resp B/P B/P Pulse O2 O2 Flow FiO2 Mean Ox Delivery Rate 03/13 0940 78 140/70 03/13 0702 98.1 90 20 122/72 95 Room Air 03/12 2221 98.2 94 20 118/60 94 Room Air 03/12 1425 78.2 98 20 1205/80 96 /03 1000 86 122/74 Intake & Output 03/13 1600 03/13 0800 03/13 0000 Intake Total 730 Output Total Balance 730 Intake, IV 250 Intake, Oral 480 Number 2 Bowel Movements Physical Exam Other Physical Findings: He appears comfortable in no acute distress Skin rash much improved Heart regular rhythm with no murmur Abdomen soft, nontender with positive bowel sounds Extremities right knee swelling, warmth with decreased range of motion Results Last 24 Hours of Lab Results: Laboratory Tests 03/13 08 Chemistry Sodium (137 - 145 mmol/L) 134 L Potassium (3.5 - 5.1 mmol/L) 3.5 Chloride (98 - 107 mmol/L) 97 L Carbon Dioxide (22 - 30 mmol/L) 31 H Anion Gap (5 - 16) 7 BUN (9 - 20 mg/dL) 15 Creatinine (0.7 - 1.2 mg/dL) 0.8 Estimated GFR (>60 ml/min) > 60 BUN/Creatinine Ratio (7 - 25 %) 18.8 Total Bilirubin (0.2 - 1.3 mg/dL) 1.5 H Direct Bilirubin (< 0.4 mg/dL) 0.9 H AST (17 - 59 U/L) 10 L ALT (21 - 72 U/L) 48 Alkaline Phosphatase (< 127 U/L) 138 H Total Protein (6.3 - 8.2 g/dL) 4.7 L Albumin (3.5 - 5.0 g/dL) 2.4 L Hematology CBC w Diff MAN DIFF ORDERED WBC (4.8 - 10.8 /CUMM) Pending RBC (4.70 - 6.10 /CUMM) Pending Hgb (14.0 - 18.0 G/DL) Pending Hct (42 - 52 %) Pending MCV (80.0 - 94.0 FL) Pending MCH (27.0 - 31.0 PG) Pending RDW (11.5 - 14.5 %) Pending Plt Count (130 - 400 /CUMM) Pending MPV (7.4 - 10.4 FL) Pending Gran % (42.2 - 75.2 %) Pending Lymphocytes % (20.5 - 51.1 %) Pending Monocytes % (1.7 - 9.3 %) Pending Eosinophils % (0 - 5 %) Pending Basophils % (0.0 - 2.0 %) Pending Absolute Granulocytes (1.4 - 6.5 /CUMM) Pending Segmented Neutrophils (42.2 - 75.2 %) Pending Absolute Lymphocytes (1.2 - 3.4 /CUMM) Pending Absolute Monocytes (0.10 - 0.60 /CUMM) Pending Absolute Eosinophils (0.0 - 0.7 /CUMM) Pending Absolute Basophils (0.0 - 0.2 /CUMM) Pending PUBS MCHC (33.0 - 37.0 G/DL) Pending Last 24 Hours of Shekhar Results: Blood cultures 2 March 11 negative Right knee synovial fluid culture March 11 negative Assessment/Plan Impression: Right knee inflammation persists despite treatment with Naprosyn, with the synovial fluid culture negative and with no crystals seen on the smear. The x- ray did reveal chondrocalcinosis; therefore this is most likely pseudogout and his treatment may need to be reevaluated. He remains afebrile and pancytopenic, though his white blood cell count has increased slightly today, on Vancomycin, begun 2 days ago for the possibility of a septic arthritis, and Ceftazidime now Day 5 with cultures negative and with no evidence of any infectious process. His peripheral smear did not reveal any evidence for morulae within the white blood cells to suggest Anaplasma. He remains on Acyclovir, as well, for prophylaxis. Suggestion: 1. Follow-up Lyme titer and Anaplasma PCR 2. Would consider steroids or Colchicine in place of Naprosyn for pseudogout 3. Discontinue Vancomycin and Ceftazidime 4. Would defer decision regarding antibiotic prophylaxis for his hairy cell leukemia to Oncology 5. Continue Acyclovir prophylaxis per Oncology
--- NOTE | 2017-03-13 10:16 | PN- Orthopedic ---
Subjective Subjective: Patient still complains of right knee pain and effusion, his pain is less but his effusion remains the same. it is limiting his mobility Objective Vital Signs and I&Os Vital Signs Date Time Temp Pulse Resp B/P B/P Pulse O2 O2 Flow FiO2 Mean Ox Delivery Rate 03/13 0940 78 140/70 03/13 0702 98.1 90 20 122/72 95 Room Air 03/12 2221 98.2 94 20 118/60 94 Room Air 03/12 1425 78.2 98 20 1205/80 96 Intake & Output 03/13 1600 03/13 0800 03/13 0000 03/12 1600 03/12 0800 03/12 0000 Intake Total 730 1550 200 830 Output Total Balance 730 1550 200 830 Intake, IV 250 350 350 Intake, Oral 480 1200 200 480 Number 2 1 Bowel Movements Physical Exam: Well-developed well-nourished, mildly pale appearing No respiratory distress Alert and oriented 3 Right knee with moderate suprapatella effusion, range of motion 5-45, limited secondary to effusion. No erythema. Mild warmth. Neurovascularly intact. Results Last 48 Hours of Labs: Laboratory Tests 03/13 03/12 0802 0605 Chemistry Sodium (137 - 145 mmol/L) 134 L 133 L Potassium (3.5 - 5.1 mmol/L) 3.5 4.0 Chloride (98 - 107 mmol/L) 97 L 96 L Carbon Dioxide (22 - 30 mmol/L) 31 H 30 Anion Gap (5 - 16) 7 7 BUN (9 - 20 mg/dL) 15 14 Creatinine (0.7 - 1.2 mg/dL) 0.8 0.8 Estimated GFR (>60 ml/min) > 60 > 60 BUN/Creatinine Ratio (7 - 25 %) 18.8 17.5 Total Bilirubin (0.2 - 1.3 mg/dL) 1.5 H 2.8 H Direct Bilirubin (< 0.4 mg/dL) 0.9 H 1.9 H AST (17 - 59 U/L) 10 L 20 ALT (21 - 72 U/L) 48 66 Alkaline Phosphatase (< 127 U/L) 138 H 165 H Total Protein (6.3 - 8.2 g/dL) 4.7 L 5.0 L Albumin (3.5 - 5.0 g/dL) 2.4 L 2.6 L Hematology CBC w Diff MAN DIFF ORDERED MAN DIFF ORDERED WBC (4.8 - 10.8 /CUMM) 1.1 *L 0.7 *L RBC (4.70 - 6.10 /CUMM) 2.16 L 2.40 L Hgb (14.0 - 18.0 G/DL) 7.4 *L 8.1 L Hct (42 - 52 %) 21.3 L 23.7 L MCV (80.0 - 94.0 FL) 98.7 H 98.5 H MCH (27.0 - 31.0 PG) 34.0 H 33.9 H RDW (11.5 - 14.5 %) 15.2 H 15.3 H Plt Count (130 - 400 /CUMM) 96 L 92 L MPV (7.4 - 10.4 FL) 7.4 7.7 Gran % (42.2 - 75.2 %) 63.3 70.8 Lymphocytes % (20.5 - 51.1 %) 30.9 19.1 L Monocytes % (1.7 - 9.3 %) 0.1 L 0.4 L Eosinophils % (0 - 5 %) 5.6 H 9.6 H Basophils % (0.0 - 2.0 %) 0.1 0.1 Absolute Granulocytes (1.4 - 6.5 /CUMM) 0.7 L 0.5 L Segmented Neutrophils (42.2 - 75.2 %) 59 55 Band Neutrophils (0.0 - 5.0 %) 18 H 17 H Absolute Lymphocytes (1.2 - 3.4 /CUMM) 0.4 L 0.1 L Lymphocytes (20.5 - 51.1 %) 15 L 21 Monocytes (1.7 - 9.3 %) 1 L 1 L Absolute Monocytes (0.10 - 0.60 /CUMM) 0 L 0 L Eosinophils (0 - 5.0 %) 7 H 5 Absolute Eosinophils (0.0 - 0.7 /CUMM) 0.1 0.1 Absolute Basophils (0.0 - 0.2 /CUMM) 0 0 Myelocytes (0 - 0 %) 1 H Nucleated RBCs (0.0 - 0.0 /100WBC) 2 H Platelet Estimate (ADEQUATE) DECREASED DECREASED Polychromasia 1+ Hypochromic-Microcytic 1+ Poikilocytosis 2+ Anisocytosis 1+ 2+ PUBS MCHC (33.0 - 37.0 G/DL) 34.5 34.4 06/ 0600 Serology Lyme Disease Antibody Pending Assessment/Plan Assessment/Plan Right knee effusion in patient who is neutropenic and on chemotherapy Right knee cultures are negative, no crystals either. Likely this represents an osteoarthritis flare. In a healthy patient I would consider re-aspiration and injection of corticosteroid intra-articular however due to patient's compromised immune status, I did not feel as though this is appropriate treatment at this time as the risk of infection is too great. I have discussed this with the patient, he understands. Would recommend continue NSAIDs and pain medication as needed, out of bed and physical therapy as tolerated. If he has worsening infectious symptoms, worsening pain in the knee, erythema, spiking fevers without any other source, we'll re-aspirate the right knee. Please notify us of such changes.
--- NOTE | 2017-03-13 12:23 | NUR ---
DR RAMIRES SAW PT THIS AM. PER RECOMMENDATIONS, DC ANTIBIOTICS. NYLON MACHINE OPERATOR ZAKIA NOTIFIED AND GOING TO SPEAK WITH ONCOLOGIST RECOMMENDING ABX. PER NYLON MACHINE OPERATOR, HOLD 10 AND 11 AM ANTIBIOTICS FOR PT. DOCUMENTED NOT GIVEN. WILL AWAIT FURTHER ORDERS. WILL CONTINUE TO MONITOR.
[2017-03-13 14:03] VITALS: BP 125/77
[2017-03-13 17:17] VITALS: BP 122/58
[2017-03-13 22:29] VITALS: BP 124/50
--- NOTE | 2017-03-14 01:12 | NUR ---
AT APPROX 0100 03/14/17 PATIENT WALKED OUT IN [facility] CONFUSED AND NOT ORIENTATED. HE STATD THAT HE WANTED TO GO FOR A WALK. HE WAS ASSISTED WITH ROLLING WALKER AND MST AND WALKED AROUND FLOOR. WAS DISOREINTATED. LAYED HIM BACK IN BED SAFELY AND BED ALARM ON. CALLED AND NOTIFIED MD KISHORE FERRARA AND MADE HIM AWARE OF SITUATION. WILL CONTINUE TO MONITOR
[2017-03-14 06:49] VITALS: BP 148/86
--- NOTE | 2017-03-14 07:58 | PN- Housestaff ---
JESSICA JUNIOR,ZAKIA 03/14/17 0758: Subjective Follow-up For: Febrile neutropenia; Right knee swelling. Subjective: Followed up the patient today. He is resting comfortably, mentions that his pain is still perisstant today but is amenable to warm compress. Of note, he had an episode of disorientation, pulling out his own IV which led to some bleeding, and wandering around in the hallways at night. Nursing staff spotted him and reoriented him, after which he has been well oriented x3. Review of Systems Constitutional: Reports: see HPI. Objective Last 24 Hrs of Vital Signs/I&O Vital Signs Date Time Temp Pulse Resp B/P B/P Pulse O2 O2 Flow FiO2 Mean Ox Delivery Rate 03/14 1411 98.2 95 20 162/82 98 03/14 1037 98 142/60 03/14 0649 98.1 106 20 148/86 93 Room Air 03/13 2229 98.1 97 20 124/50 92 Room Air Intake & Output 03/14 1600 03/14 0800 03/14 0000 Intake Total 360 830 Output Total Balance 360 830 Intake, Blood 350 Product Intake, Oral 360 480 Number 1 Bowel Movements Physical Exam General Appearance: Alert, Oriented X3, Cooperative, No Acute Distress Other Physical Findings: Patient's right knee is mildly swollen, very tender to touch, is not erythematous, and has limited range of motion due to pain. Rashes over the body have coleased with each other and have become fainter, and are minimally itchy. Rest of his physical examination is normal. Current Medications: Current Medications Sig/Ayse Start time Last Medication Dose Route Stop Time Status Admin Acetaminophen 650 MG .STK-MED ONE 03/13 2119 DC PO 03/13 2120 Acetaminophen 650 MG Q4P PRN 03/10 08 03/13 PO 2120 Acyclovir 400 MG TID 03/08 2200 DC 03/13 PO 2126 Amlodipine Besylate 5 MG DAILY 03/08 1717 AC 03/14 PO 1037 Colchicine 600 MCG ONCE ONE 03/14 1530 DC 03/14 PO 03/14 1531 1708 Cyanocobalamin 1,000 MCG DAILY 03/08 171 AC 03/14 PO 1038 Cyclobenzaprine HCl 5 MG TID PRN 03/08 2215 DC 03/12 PO 0452 Diclofenac Sodium 1 PRATEEK 4 TIMES/DAY 03/09 2230 03/14 TOP 1708 Diphenhydramine HCl 1 PRATEEK TID 03/10 1000 AC 03/14 TOP 1708 Diphenhydramine HCl 25 MG Q6-PRN PRN 03/08 1645 DC 03/11 IV 2347 Docusate Sodium 100 MG BID 03/08 2200 AC 03/13 PO 2120 Filgrastim 480 MCG DAILY@2100 03/09 2100 AC 03/13 SC 2120 Hydromorphone HCl 1 MG Q4P PRN 03/14 1045 AC IV Hydromorphone HCl 2 MG Q4P PRN 03/09 0930 DC 03/11 IV 0056 Naproxen 500 MG BID 03/11 1215 AC 03/14 PO 1037 Omeprazole 40 MG DAILY AC 03/09 223 AC 03/12 PO 0528 Oxycodone HCl 20 MG Q12 03/09 1000 AC 03/12 PO 2141 Polyethylene Glycol 17 GM DAILY 03/08 1723 AC 03/13 PO 0939 Senna/Docusate Sodium 1 TAB AT BEDTIME 03/08 2200 AC 03/13 PO 2120 Tramadol HCl 50 MG Q4P PRN 03/08 1645 DC 03/12 PO 1310 Last 24 Hrs of Lab/Shekhar Results Last 24 Hrs of Labs/Mics: Laboratory Tests 03/14/17 0725: Anion Gap 8, Estimated GFR > 60, BUN/Creatinine Ratio 15.0, Total Bilirubin 1.5 H, Direct Bilirubin 0.6 H, AST 12 L, ALT 45, Alkaline Phosphatase 137 H, Total Protein 4.6 L, Albumin 2.4 L, CBC w Diff MAN DIFF ORDERED, RBC 2.41 L, MCV 97.0 H, MCH 33.1 H, RDW 15.5 H, MPV 7.2 L, Gran % 79.0 H, Lymphocytes % 16.9 L, Monocytes % 0.4 L, Eosinophils % 3.6, Basophils % 0.1, Absolute Granulocytes 1.4, Segmented Neutrophils 71, Band Neutrophils 19 H, Absolute Lymphocytes 0.3 L, Lymphocytes 10 L, Absolute Monocytes 0 L, Absolute Eosinophils 0.1, Absolute Basophils 0, Platelet Estimate DECREASED, Normocytic RBCs VERIFIED, Normochromic RBCs VERIFIED, Basophilic Stippling RARE, PUBS MCHC 34.1 Assessment/Plan Assessment: 61-year-old male with past medical history of recently diagnosed hairy cell leukemia, hypertension, arthritis, was sent to emergency by Dr. Gabriela Dumont, oncologist, for chills and rigor within the past 24 hours. He is currently being managed in the general medical floor for the following issues: PANCYTOPENIA: #Neutropenic fever, 2/2 chemotherapy for hairy Cell Leukemia T max 99 recorded. Patient responding to Nuepogen, albeit slowly. Emperic antibiotic, antiviral, and antifungal coverage, along with Vancomycin was stopped yesterday. Patient received 1 unit of PRBC yesterday. * Continue Filgastrim 480 g daily until ANC is more than 1500 * Hem-Onc and ID consultation appreciated. #Anemia Patient's hemoglobin/hematocrit was 7.2/21.0, possibly due to chemotherapy. Pt had received 3 units of PRBC. Hb 7.4 noted on Tuesday, so transfused 1 U PRBC. Oncology notified. We'll repeat CBC tomorrow. #Low Plt- 114 today, following closely as the patient is not bleeding actively. #Right knee pain/swelling Patient had enlarged right knee, which was tender after 2 days of presentation which decreased for a day and then got worse significantly. At which point, orthopedic consultation was made, right knee synovial fluid aspiration was done which showed leukocytes with 100% neutrophils. Negative culture, negative for crystals. Patient is on naproxen by Orthopedics suggestion, which seems to be helping only minimally. Differential diagnosis for his right knee pain/ condition are osteoarthritis and pseudogout. * Thus patient was started on colchicine one time dose only today. * Follow up Lyme titer and Anaplasma PCR. * Appreciate ID and Orthopedics consultation. #Hypertension We'll continue home medication of amlodipine 5 mg daily by mouth. #Back pain Getting better. Managing pain with opiates, which have been decreased today due to him orsorientation episode last night. Patient has 3 orders of bowel regimen. #Skin rash Rash is getting better daily. Still awaiting Dermatology consultation. No note in EMR. Patient however seems to believe the Derm physician has seen him in this admission. No record with nursing ataff either. At this point of time, he can be seen by a power technician as an outpatient basis as well. #Diet: Heart healthy #DVT ppx: ALPS only as he is thrombocytopenic #Code status: Full code Problem List: 1. Pancytopenia 2. Arthritis of knee 3. Hairy cell leukemia not having achieved remission 4. Skin rash Pain Ratin Pain Location: RT KNEE Pain Goal: Pain 4 or less Pain Plan: in place, modified today Tomorrow's Labs & Rationales: CBC, BEP, LFT DEEDEE JUNIOR,HARINDER 03/14/17 1742: Attending MD Review Statement Attending Statement Attending MD Statement: examined this patient, discuss w/resident/PA/CASHIERS SUPERVISOR, agreed w/resident/PA/CASHIERS SUPERVISOR, reviewed EMR data (avail) Attending Assessment/Plan: 61M PMH hairy cell leukemia s/p recent chemotherapy, history of multiple knee surgeries, admitted for neutropenia and chills, course complicated initially by right arm swelling which resolved followed by right knee swelling s/p arthrocentesis with 1700 WBC and negative cultures. The past two days patient has become confused and agitated overnight, likely secondary to pain medications and muscle relaxants. Today patient reports that he is feeling well overall. He still has right knee edema that is limiting his range of motion, but he denies pain. He is able to walk but with a limp. He denies fever, chills, n/v, diarrhea, dysuria. Per his , he is at baseline mental status, though around 6am he called her and was very confused. WBC is increasing to 1.8. 1. Neutropenic fever 2. Right knee effusion 3. Pseudogout 4. Delirium 5. Hairy cell leukemia Plan - Continue on general medicine - Stop ms-contin, tramadol, flexeril. Decrease Dilaudid to 1mg q6h PRN. Monitor for delirium or confusion - Follow cultures - Follow ID and oncology recommendations - Continue Naproxen - Start Colchicine, monitor for diarrhea - Continue home medications - DVT PPx - If WBC continues to improve and knee effusion lessens, and mental status remains intact, patient can be discharged tomorrow with outpatient follow up
[2017-03-14 08:20] LABS: ABSOLUTE BASOPHIL COUNT 0 /CUMM (0.0-0.2); ABSOLUTE EOSINOPHIL COUNT 0.1 /CUMM (0.0-0.7); ABSOLUTE MONOCYTE COUNT 0 /CUMM (0.10-0.60); MEAN PLATELET VOLUME 7.2 FL (7.4-10.4); RED BLOOD CELL CT 2.41 /CUMM (4.70-6.10)
[2017-03-14 08:42] LABS: ABSOLUTE GRANULOCYTE CT 1.4 /CUMM (1.4-6.5); ABSOLUTE LYMPH COUNT 0.3 /CUMM (1.2-3.4); BASOPHIL % 0.1 % (0.0-2.0); EOSINOPHIL % 3.6 % (0-5); HEMATOCRIT 23.4 % (42-52); MEAN CORPUSCULAR HGB 33.1 PG (27.0-31.0); MEAN CORPUSCULAR HGB CONC 34.1 G/DL (33.0-37.0); PLATELET COUNT 114 /CUMM (130-400); RBC DISTRIBUTION WIDTH 15.5 % (11.5-14.5)
--- NOTE | 2017-03-14 12:08 | PN- Hematology ---
Subjective Subjective: He feels a little better. Pain is improved. He has no nausea or vomiting. He has no fever or chills. His right leg seems to be improving. He has not been up and ambulating as much. He wants to go home today. Review of Systems Constitutional: Denies: chills, fever. Cardiovascular: Denies: chest pain. Respiratory: Denies: short of breath. Gastrointestinal: Denies: abdominal pain. Musculoskeletal: Reports: joint pain, joint swelling, muscle pain. Neurological/Psychological: Denies: anxiety, confusion, depressed. Immunologic/Allergic: Denies: lymphadenopathy. All Other Systems: Reviewed and Negative Objective Vital Signs and I&Os Vital Signs Date Time Temp Pulse Resp B/P B/P Pulse O2 O2 Flow FiO2 Mean Ox Delivery Rate 03/14 1037 98 142/60 03/14 0649 98.1 106 20 148/86 93 Room Air 03/13 2229 98.1 97 20 124/50 92 Room Air 03/13 1717 99.0 95 20 122/58 91 Room Air 03/13 1403 98.2 80 20 125/77 98 Intake & Output 03/14 1600 03/14 0800 03/14 0000 03/13 1600 03/13 0800 03/13 0000 Intake Total 830 700 730 Output Total Balance 830 700 730 Intake, Blood 350 Product Intake, IV 250 Intake, Oral 480 700 480 Number 2 Bowel Movements Physical Exam General Appearance: well developed/nourished, no apparent distress, alert, awake , comfortable Head: atraumatic Ears, Nose, Throat: normal pharynx Neck: normal inspection Respiratory: normal breath sounds Abdomen: normal bowel sounds, soft, non-tender Extremities: right knee edema up to mid thigh Neurologic/Psychiatric: awake, alert, oriented x 3 Skin: rash Current Medications: Current Medications Sig/Ayse Start time Last Medication Dose Route Stop Time Status Admin Acetaminophen 650 MG .STK-MED ONE 03/13 2119 DC PO 03/13 2120 Acetaminophen 650 MG Q4P PRN 03/10 08 AC 03/13 PO 212 Acyclovir 400 MG TID 03/08 220 DC 03/13 PO 2125 Amlodipine Besylate 5 MG DAILY 03/08 1717 AC 03/14 PO 1037 Ceftazidime 2,000 MG Q8H 03/10 1100 DC 03/13 Dextrose/Water 50 ML IV 0239 Cyanocobalamin 1,000 MCG DAILY 03/08 1717 AC 03/14 PO 1038 Cyclobenzaprine HCl 5 MG TID PRN 03/08 2215 DC 03/12 PO 0452 Diclofenac Sodium 1 PRATEEK 4 TIMES/DAY 03/09 223 AC 03/14 TOP 1126 Diphenhydramine HCl 1 PRATEEK TID 03/10 1000 AC 03/14 TOP 1124 Diphenhydramine HCl 25 MG Q6-PRN PRN 03/08 1645 DC 03/11 IV 2347 Docusate Sodium 100 MG BID 03/08 2200 AC 03/13 PO 2120 Filgrastim 480 MCG DAILY@2100 03/09 2100 AC 03/13 SC 2120 Hydromorphone HCl 1 MG Q4P PRN 03/14 1045 AC IV Hydromorphone HCl 2 MG Q4P PRN 03/09 0930 DC 03/11 IV 0056 Naproxen 500 MG BID 03/11 1215 AC 03/14 PO 1037 Omeprazole 40 MG DAILY AC 03/09 223 AC 03/12 PO 0528 Oxycodone HCl 20 MG Q12 03/09 1000 AC 03/12 PO 2141 Polyethylene Glycol 17 GM DAILY 03/08 1723 AC 03/13 PO 0939 Senna/Docusate Sodium 1 TAB AT BEDTIME 03/08 2200 AC 03/13 PO 2120 Tramadol HCl 50 MG Q4P PRN 03/08 164 DC 03/12 PO 1310 Vancomycin HCl 1,250 MG BID 03/11 2200 DC 03/12 Sodium Chloride 250 ML IV 2142 Results Last 24 Hours of Lab Results: Laboratory Tests 03/14 0725 Chemistry Sodium (137 - 145 mmol/L) 137 Potassium (3.5 - 5.1 mmol/L) 3.6 Chloride (98 - 107 mmol/L) 101 Carbon Dioxide (22 - 30 mmol/L) 28 Anion Gap (5 - 16) 8 BUN (9 - 20 mg/dL) 12 Creatinine (0.7 - 1.2 mg/dL) 0.8 Estimated GFR (>60 ml/min) > 60 BUN/Creatinine Ratio (7 - 25 %) 15.0 Total Bilirubin (0.2 - 1.3 mg/dL) 1.5 H Direct Bilirubin (< 0.4 mg/dL) 0.6 H AST (17 - 59 U/L) 12 L ALT (21 - 72 U/L) 45 Alkaline Phosphatase (< 127 U/L) 137 H Total Protein (6.3 - 8.2 g/dL) 4.6 L Albumin (3.5 - 5.0 g/dL) 2.4 L Hematology CBC w Diff MAN DIFF ORDERED WBC (4.8 - 10.8 /CUMM) 1.8 L RBC (4.70 - 6.10 /CUMM) 2.41 L Hgb (14.0 - 18.0 G/DL) 8.0 L Hct (42 - 52 %) 23.4 L MCV (80.0 - 94.0 FL) 97.0 H MCH (27.0 - 31.0 PG) 33.1 H RDW (11.5 - 14.5 %) 15.5 H Plt Count (130 - 400 /CUMM) 114 L MPV (7.4 - 10.4 FL) 7.2 L Gran % (42.2 - 75.2 %) 79.0 H Lymphocytes % (20.5 - 51.1 %) 16.9 L Monocytes % (1.7 - 9.3 %) 0.4 L Eosinophils % (0 - 5 %) 3.6 Basophils % (0.0 - 2.0 %) 0.1 Absolute Granulocytes (1.4 - 6.5 /CUMM) 1.4 Segmented Neutrophils (42.2 - 75.2 %) 71 Band Neutrophils (0.0 - 5.0 %) 19 H Absolute Lymphocytes (1.2 - 3.4 /CUMM) 0.3 L Lymphocytes (20.5 - 51.1 %) 10 L Absolute Monocytes (0.10 - 0.60 /CUMM) 0 L Absolute Eosinophils (0.0 - 0.7 /CUMM) 0.1 Absolute Basophils (0.0 - 0.2 /CUMM) 0 Platelet Estimate (ADEQUATE) DECREASED Normocytic RBCs VERIFIED Normochromic RBCs VERIFIED Basophilic Stippling RARE PUBS MCHC (33.0 - 37.0 G/DL) 34.1 Assessment/Plan Assessment/Recommendations: Mr. 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 Cultures have been negative and patient has been afebrile. He is now off antibiotic. His ANC 1400 today with platelet count of 114,000. His right knee has been improving. Rash is improving. He should continue with filgrastim until ANC >1500. Physical therapy should continue to work with patient. He may be discharge if stable with ambulation and knee symptoms. Recommendations: 1. Discontinue prophylaxis (acyclovir, diflucan, and antibiotic) 2. Continue filgrastim 480 mcg (5 mcg/kg rounding up) SC daily until ANC >1500 3. Orthopedic recommendations 4. consider dermatology consult, may be done as outpatient 5. Follow up within the week of discharge Please call [phone] with any questions or con Problem List: 1. Pancytopenia 2. Hairy cell leukemia not having achieved remission 3. Arthritis of knee 4. Anemia
[2017-03-14 14:11] VITALS: BP 162/82
--- NOTE | 2017-03-14 17:17 | PN- Infect Dx ---
Subjective Subjective: Afebrile on Naprosyn. He notes improvement in his right knee pain though still has difficulty with ambulation. He notes overall improvement in his rash, though it apparently is waxing and waning. Objective Last 24 Hrs of Vital Signs/I&O Vital Signs Date Time Temp Pulse Resp B/P B/P Pulse O2 O2 Flow FiO2 Mean Ox Delivery Rate 03/14 1411 98.2 95 20 162/82 98 / 1037 98 142/60 03/14 0649 98.1 106 20 148/86 93 Room Air 03/13 2229 98.1 97 20 124/50 92 Room Air 03/13 1717 99.0 95 20 122/58 91 Room Air Intake & Output 03/14 1600 03/14 0800 03/14 0000 Intake Total 360 830 Output Total Balance 360 830 Intake, Blood 350 Product Intake, Oral 360 480 Number 1 Bowel Movements Physical Exam Other Physical Findings: He appears comfortable in no acute distress Skin maculopapular rash, particularly on the lower extremities Lungs are clear Heart regular rhythm with no murmur Extremities right knee swelling persists, with decreased range of motion, perhaps somewhat improved from previous exam, with mild tenderness on palpation Results Last 24 Hours of Lab Results: Laboratory Tests 03/14 0725 Chemistry Sodium (137 - 145 mmol/L) 137 Potassium (3.5 - 5.1 mmol/L) 3.6 Chloride (98 - 107 mmol/L) 101 Carbon Dioxide (22 - 30 mmol/L) 28 Anion Gap (5 - 16) 8 BUN (9 - 20 mg/dL) 12 Creatinine (0.7 - 1.2 mg/dL) 0.8 Estimated GFR (>60 ml/min) > 60 BUN/Creatinine Ratio (7 - 25 %) 15.0 Total Bilirubin (0.2 - 1.3 mg/dL) 1.5 H Direct Bilirubin (< 0.4 mg/dL) 0.6 H AST (17 - 59 U/L) 12 L ALT (21 - 72 U/L) 45 Alkaline Phosphatase (< 127 U/L) 137 H Total Protein (6.3 - 8.2 g/dL) 4.6 L Albumin (3.5 - 5.0 g/dL) 2.4 L Hematology CBC w Diff MAN DIFF ORDERED WBC (4.8 - 10.8 /CUMM) 1.8 L RBC (4.70 - 6.10 /CUMM) 2.41 L Hgb (14.0 - 18.0 G/DL) 8.0 L Hct (42 - 52 %) 23.4 L MCV (80.0 - 94.0 FL) 97.0 H MCH (27.0 - 31.0 PG) 33.1 H RDW (11.5 - 14.5 %) 15.5 H Plt Count (130 - 400 /CUMM) 114 L MPV (7.4 - 10.4 FL) 7.2 L Gran % (42.2 - 75.2 %) 79.0 H Lymphocytes % (20.5 - 51.1 %) 16.9 L Monocytes % (1.7 - 9.3 %) 0.4 L Eosinophils % (0 - 5 %) 3.6 Basophils % (0.0 - 2.0 %) 0.1 Absolute Granulocytes (1.4 - 6.5 /CUMM) 1.4 Segmented Neutrophils (42.2 - 75.2 %) 71 Band Neutrophils (0.0 - 5.0 %) 19 H Absolute Lymphocytes (1.2 - 3.4 /CUMM) 0.3 L Lymphocytes (20.5 - 51.1 %) 10 L Absolute Monocytes (0.10 - 0.60 /CUMM) 0 L Absolute Eosinophils (0.0 - 0.7 /CUMM) 0.1 Absolute Basophils (0.0 - 0.2 /CUMM) 0 Platelet Estimate (ADEQUATE) DECREASED Normocytic RBCs VERIFIED Normochromic RBCs VERIFIED Basophilic Stippling RARE PUBS MCHC (33.0 - 37.0 G/DL) 34.1 Last 24 Hours of Shekhar Results: Blood cultures March 11 negative Right knee synovial fluid culture March 11 negative Assessment/Plan Impression: Overall improved with temperatures remaining normal and white blood cell count increasing on Neupogen and off antibiotics now more than 2 weeks status post his most recent chemotherapy. His Acyclovir prophylaxis has also been discontinued. His rash persists and was felt by Dermatology to be "chemotherapy induced". His right knee inflammation is somewhat improved but persists on Naprosyn for probable pseudogout, with the x-ray of the right knee revealing chondrocalcinosis. Suggestion: 1. Would consider Rheumatology input for treatment of his presumed pseudogout ( for example steroids or Colchicine in place of Naprosyn) 2. Consider skin biopsy as per Dermatology recommendation (see handwritten note in patient's chart) 3. Discontinue Neupogen per Oncology when ANC over 1500 4. Continue to follow off antibiotics
--- NOTE | 2017-03-14 17:18 | Discharge Summary ---
Hospital Course Allergies: Coded Allergies: Penicillins (UNKNOWN 11/17/16) raspberry (UNKNOWN 03/08/17) strawberry (UNKNOWN 03/08/17) Discharge Instructions Medications at Discharge Discharge Medications: Stop taking the following medications: Acyclovir (Acyclovir) 400 MG TABLET ORAL THREE TIMES DAILY Qty = 90 Allopurinol (Allopurinol) 300 MG TABLET ORAL DAILY Levofloxacin (Levofloxacin) 500 MG TABLET ORAL DAILY Qty = 30 Naproxen Sodium (Aleve) 220 MG TABLET ORAL TWICE DAILY Valacyclovir HCl (Valacyclovir) 1,000 MG TABLET ORAL THREE TIMES DAILY Continue taking these medications: Amlodipine Besylate (Amlodipine Besylate) 5 MG TABLET 1 Tablet ORAL DAILY Qty = 30 Comments: Last Taken: 03/15/17 Time: 0900 Albuterol Sulfate (Proair Hfa) 90 MCG HFA.AER.AD 2 Puff Inhale through mouth Q6H as needed for RESPIRATORY Cinnamon Bark (Cinnamon) (Unknown Strength) CAPSULE Unknown Dose ORAL DAILY Clobetasol Propionate (Clobetasol Propionate) 0.05 % CREAM..G. 1 Application On the skin TWICE DAILY Qty = 30 Instructions: apply to affected area(s) Cyanocobalamin (Vitamin B-12) 1,000 MCG TABLET 1 Tablet ORAL DAILY Comments: Last Taken:03/15/17 Time:0900 [place]-3 Fatty Acids/Fish Oil (Fish Oil 1,000 MG Capsule) 340 MG-1,000 MG CAPSULE 1,000 Milligram ORAL DAILY Brook (Brook) (Unknown Strength) CAPSULE Unknown Dose ORAL DAILY Glucosa Cardenas 2KCL/Chondroitin Cardenas (Glucosamine & Chondroitin Cap) 500 MG-400 MG CAPSULE 1 Capsule ORAL THREE TIMES DAILY Lactobacillus Acidophilus (Probiotic) (Unknown Strength) CAPSULE Unknown Dose ORAL DAILY Multivitamin (Multi-Day Vitamins) 1 EACH TABLET 1 Tablet ORAL DAILY Start taking the following new medications: Loratadine (Loratadine) 10 MG TABLET 10 Milligram ORAL DAILY Qty = 30 Refills = 3 Naproxen (Naproxen) 500 MG TABLET 500 Milligram ORAL TWICE DAILY Qty = 10 No Refills Omeprazole (Omeprazole) 20 MG CAPSULE.DR 40 Milligram ORAL DAILY BEFORE BREAKFAST Qty = 30 No Refills Clobetasol Propionate (Temovate) 0.05 % OINT...G. 1 Application On the skin AT BEDTIME Qty = 1 Refills = 2 Instructions: APPLY TO THE AFFECTED AREA AT NIGHT. Triamcinolone Acetonide (Triamcinolone Acetonide) 0.1 % CREAM..G. 1 Application On the skin DAILY Qty = 1 Refills = 2 Instructions: Apply to the affected area once a day. Colchicine (Colchicine) 0.6 MG TABLET 600 Microgram ORAL DAILY Qty = 5 No Refills
[2017-03-14 22:24] VITALS: BP 141/72
--- NOTE | 2017-03-14 22:26 | NUR ---
SHIFT NOTE- PT A/O X 3, REFUSING BED ALARM AT THIS TIME "IT WAS JUST BECAUSE OF THAT PAIN MED WHICH IM NOT TAKING ANYMORE" ON RA, LUNGS CLEAR. RASH TO BLE AND BILATERAL UPPER EXT- BENEDRYL CREAM APPLIED ORDERED. PT DENIES ITCHINESS. EDEMA TO RIGHT KNEE. PT SEEN BY DR RAMIRES AND DR MARK. GIVEN 1 X DOSE OF COLCHICINE PER ORDER. CALL TO LABOR LAW PROFESSOR REGARDING ORDERS NAPROXEN IS CURRENTLY REMAINS AN ACTIVE ORDER- BUT PER PT HE WAS TOLD THAT THE COLCHICINE WOULD BE REPLACING THE NAPROXEN AND REFUSED HS DOSE OF NAPROXEN. LABOR LAW PROFESSOR MADE AWARE. PT CONT TO USE RICE SOCK TO RIGHT KNEE. SCHEDULED NEUPOGEN GIVEN ORDERED. APPETITE REMAINS POOR. +BS, LBM TODAY. WILL CONTINUE TO MONITOR
--- NOTE | 2017-03-15 06:08 | PN- Housestaff ---
Subjective Follow-up For: Pseudogot Neutropenia Chemo-induced rash Subjective: Patient seen and examined this morning. Resting comfortably in bed with no acute complaints. Reports a significant improvement in the right knee pain/swelling and rash. Denies any fever, chills, chest discomfort, palpitations, dyspnea, abdominal pain, nausea, vomiting, headache. No events reported overnight. Review of Systems Constitutional: Reports: see HPI. Objective Last 24 Hrs of Vital Signs/I&O Vital Signs Date Time Temp Pulse Resp B/P B/P Pulse O2 O2 Flow FiO2 Mean Ox Delivery Rate 03/15 0835 97.6 84 20 130/64 03/15 0659 98.0 80 16 140/62 98 Room Air 03/14 2224 98.1 90 20 141/72 98 Room Air 03/14 1411 98.2 95 20 162/82 98 03/14 1037 98 142/60 Intake & Output 03/15 1600 03/15 0800 03/15 0000 Intake Total Output Total Balance Intake, IV Intake, Oral Physical Exam General Appearance: Alert, Oriented X3, Cooperative, No Acute Distress Other Physical Findings: Skin Diffuse maculopapular rash on the torso and all extremities (LEs > UEs), no skin break or scaling Skin Temp/Moisture Exam: Warm/Dry Sepsis Skin Exam (color): Normal for Ethnicity HEENT Atraumatic, PERRLA, EOMI, Mucous Membr. moist/pink Neck Supple, No JVD, No thryomegaly Cardiovascular Regular Rate, Normal S1, Normal S2, No Murmurs Lungs Clear to Auscultation, Normal Air Movement Abdomen Normal Bowel Sounds, Soft, No Tenderness, No Hepatospenomegaly Neurological Normal Speech, grossly intact, normal mentation Extremities: Right knee with significant edema and mild erythema. Minimal tenderness to palpation. Limited ROM due to pain. Current Medications: Current Medications Sig/Ayse Start time Last Medication Dose Route Stop Time Status Admin Acetaminophen 650 MG Q4P PRN 03/10 0800 AC 03/13 PO 2120 Amlodipine Besylate 5 MG DAILY 03/08 1717 AC 03/15 PO 0835 Clobetasol Propionate 1 PRATEEK AT BEDTIME 03/15 2200 AC TOP Colchicine 600 MCG DAILY 03/15 1000 AC PO Colchicine 600 MCG ONCE ONE 03/14 1530 DC 03/14 PO 03/14 1531 1708 Cyanocobalamin 1,000 MCG DAILY 03/08 1717 AC 03/15 PO 0835 Cyclobenzaprine HCl 5 MG TID PRN 03/08 2215 DC 03/12 PO 0452 Diclofenac Sodium 1 PRATEEK 4 TIMES/DAY 03/09 2230 AC 03/15 TOP 0836 Diphenhydramine HCl 1 PRATEEK TID 03/10 1000 AC 03/15 TOP 0837 Diphenhydramine HCl 25 MG Q6-PRN PRN 03/08 1645 DC 03/11 IV 2347 Docusate Sodium 100 MG BID 03/08 2200 AC 03/15 PO 0835 Filgrastim 480 MCG DAILY@2100 03/09 2100 AC 03/14 SC 2123 Hydromorphone HCl 1 MG Q4P PRN 03/14 1045 AC IV Hydromorphone HCl 2 MG Q4P PRN 03/09 0930 DC 03/11 IV 0056 Loratadine 10 MG DAILY 03/15 1000 AC PO Naproxen 500 MG BID 03/11 1215 AC 03/15 PO 0835 Omeprazole 40 MG DAILY AC 03/09 2230 AC 03/12 PO 0528 Oxycodone HCl 20 MG Q12 03/09 1000 AC 03/12 PO 2141 Polyethylene Glycol 17 GM DAILY 03/08 1723 AC 03/15 PO 0836 Senna/Docusate Sodium 1 TAB AT BEDTIME 03/08 220 AC 03/14 PO 2123 Tramadol HCl 50 MG Q4P PRN 03/08 1645 DC 03/12 PO 1310 Triamcinolone 1 PRATEEK DAILY 03/15 1000 AC Acetonide TOP Last 24 Hrs of Lab/Shekhar Results Last 24 Hrs of Labs/Mics: Laboratory Tests 03/15/17 0750: Anion Gap 8, Estimated GFR > 60, BUN/Creatinine Ratio 16.3, Magnesium 2.1, Total Bilirubin 1.0, Direct Bilirubin 0.4, AST 19, ALT 52, Alkaline Phosphatase 146 H , Total Protein 4.8 L, Albumin 2.5 L, CBC w Diff Pending, WBC Pending, RBC Pending, Hgb Pending, Hct Pending, MCV Pending, MCH Pending, RDW Pending, Plt Count Pending, MPV Pending, Gran % Pending, Lymphocytes % Pending, Monocytes % Pending, Eosinophils % Pending, Basophils % Pending, Absolute Granulocytes Pending, Absolute Lymphocytes Pending, Absolute Monocytes Pending, Absolute Eosinophils Pending, Absolute Basophils Pending, PUBS MCHC Pending Assessment/Plan Assessment: 61-year-old male with past medical history of recently diagnosed hairy cell leukemia, hypertension, arthritis, was sent to emergency by Dr. Gabriela Dumont, oncologist, for evaluation and management of neutropenic fever. #Neutropenic fever - resolved 2/2 chemotherapy for hairy Cell Leukemia. Unclear etiology. * Vitals per protocol * Continue Filgastrim 480 g daily until ANC is more than 1500 * Watch off abx * Hem-Onc and ID consultation appreciated. # Pancytopenia - improving Likely due to chemo. H/H on admission was 7.2/21.0, WBC 0.6 and plat in 90s. He has been HDS with a stable H/H since blood transfusion. * Monitor CBC daily * Watch for signs of bleeding and infection * Neupogen as above #Right knee pain/swelling Most likely 2/2 arthritis flare up and psuedogout. * Cont colchicine and Naproxen * Follow up Lyme titer and Anaplasma PCR - negative * Appreciate ID and orthopedics consultation. * Referral for rheum consult outpatient #Hypertension Continue home medication of amlodipine 5 mg daily by mouth. #Skin rash Most likely chemo induced eruption. Evaluated by video production assistant * Steroid cream as per derm rec #Diet: Heart healthy #DVT ppx: ALPS only as he is thrombocytopenic #Code status: Full code Problem List: 1. Skin rash 2. Anemia 3. Back pain 4. Arthritis of knee 5. HTN (hypertension) 6. Pseudogout 7. Hairy cell leukemia not having achieved remission 8. Neutropenia Pain Ratin Pain Location: Right knee Pain Goal: Remain pain free Pain Plan: Mild pathway Tomorrow's Labs & Rationales: CBC BEP 5. HTN (hypertension) 6. Pseudogout 7. Hairy cell leukemia not having achieved remission 8. Neutropenia Pain Ratin Pain Location: Right knee Pain Goal: Remain pain free Pain Plan: Mild pathway Tomorrow's Labs & Rationales: CBC BEP
[2017-03-15 06:59] VITALS: BP 140/62
[2017-03-15 08:10] LABS: WHITE BLOOD CELL COUNT 1.8 /CUMM (4.8-10.8)
[2017-03-15 08:35] VITALS: BP 130/64
[2017-03-15 08:49] LABS: ABSOLUTE BASOPHIL COUNT 0 /CUMM (0.0-0.2); ABSOLUTE EOSINOPHIL COUNT 0.1 /CUMM (0.0-0.7); ABSOLUTE GRANULOCYTE CT 2.2 /CUMM (1.4-6.5); ABSOLUTE LYMPH COUNT 0.2 /CUMM (1.2-3.4); ABSOLUTE MONOCYTE COUNT 0 /CUMM (0.10-0.60); BASOPHIL % 0.1 % (0.0-2.0); EOSINOPHIL % 4.9 % (0-5); GRANULOCYTE % 86.3 % (42.2-75.2); HEMATOCRIT 23.2 % (42-52); MEAN CORPUSCULAR HGB 33.5 PG (27.0-31.0); MEAN CORPUSCULAR VOLUME 98.5 FL (80.0-94.0); MEAN PLATELET VOLUME 6.9 FL (7.4-10.4); PLATELET COUNT 120 /CUMM (130-400); RBC DISTRIBUTION WIDTH 15.8 % (11.5-14.5); RED BLOOD CELL CT 2.35 /CUMM (4.70-6.10); WHITE BLOOD CELL COUNT 2.5 /CUMM (4.8-10.8)
[2017-03-15] MEDS ORDERED: LORATADINE10 M1 PO ×3 (10:25→14:49)
[2017-03-15] MEDS ORDERED: OMEPRAZOLE20 M2 PO ×2 (10:40→14:51)
[2017-03-15] MEDS ORDERED: TEMOVATE15 GM TOP ×2 (10:40→14:54)
[2017-03-15] MEDS ORDERED: NAPROXEN500 M2 PO ×2 (10:40→14:53)
[2017-03-15] MEDS ORDERED: TRIAMCINOLONE A15 G1 TOP ×2 (10:40→14:54)
[2017-03-15] MEDS ORDERED: COLCHICINE0.6 M2 PO ×2 (10:40→14:52)
--- NOTE | 2017-03-15 10:43 | Patient Discharge Instructions ---
Discharge Instructions General Discharge Information You were seen/treated for: Neutropenic fever Pseudogout/arthritis Special Instructions: Please follow up with your primary care provider and oncologist Dr. Eric within 1 week of discharge. Please see a rheumotologist Dr. Murillo within 1-2 weeks of discharge for your knee pain (Referral provided below). Return to ED if you have persistent fever, chills, or any worsening symtpoms. Diet Continue normal diet: Yes Activity Full Activity/No Limits: Yes (as tolerated) Acute Coronary Syndrome Inclusion Criteria At DC or during hospital stay patient has or had the following: ACS DIAGNOSIS No Discharge Core Measures Meds if any: Prescribed or Continued at Discharge Meds if any: NOT Prescribed or Continued at Discharge Congestive Heart Failure Inclusion Criteria At DC or during hospital stay patient has or had the following: CHF DIAGNOSIS No Discharge Core Measures Meds if any: Prescribed or Continued at Discharge Meds if any: NOT Prescribed or Continued at Discharge Cerebrovascular accident Inclusion Criteria At DC or during hospital stay patient has or had the following: CVA/TIA Diagnosis No Discharge Core Measures Meds if any: Prescribed or Continued at Discharge Meds if any: NOT Prescribed or Continued at Discharge Venous thromboembolism Inclusion Criteria VTE Diagnosis No VTE Type NONE VTE Confirmed by (Test) NONE Discharge Core Measures - Per Current guidelines, there needs to be overlap - treatment for the first 5 days of Warfarin therapy. - If discharged on Warfarin prior to 5 days of - overlap therapy, the patient will need to be - assessed for post discharge needs including - *Post discharge parental anticoagulation - *Warfarin and/or parental anticoagulation education - *Follow up date to check INR post discharge At least 5 days overlap therapy as Inpatient No Meds if any: Prescribed or Continued at Discharge Note: Overlap Therapy is Warfarin and Anticoagulant Meds if any: NOT Prescribed or Continued at Discharge
--- NOTE | 2017-03-15 12:01 | PN- Hematology ---
Subjective Subjective: He wants to go home today. Right knee feels better to him. He has some confusion at night. He denies any other symptoms. Review of Systems: Constitutional: Denies: chills, fever. Cardiovascular: Denies: chest pain. Respiratory: Denies: short of breath. Gastrointestinal: Denies: abdominal pain. Musculoskeletal: Reports: joint pain, joint swelling. Neurological/Psychological: Reports: confusion, anxiety, irritability Denies: depressed. Immunologic/Allergic: Denies: lymphadenopathy. All Other Systems: Reviewed and Negative Objective Vital Signs and I&Os Vital Signs Date Time Temp Pulse Resp B/P B/P Pulse O2 O2 Flow FiO2 Mean Ox Delivery Rate 03/15 0835 97.6 84 20 130/64 03/15 0659 98.0 80 16 140/62 98 Room Air 03/14 2224 98.1 90 20 141/72 98 Room Air 03/14 1411 98.2 95 20 162/82 98 Intake & Output 03/15 1600 03/15 0800 03/15 0000 03/14 1600 03/14 0800 03/14 0000 Intake Total 360 830 Output Total Balance 360 830 Intake, Blood 350 Product Intake, IV Intake, Oral 360 480 Number 1 Bowel Movements Physical Exam: General Appearance: well developed/nourished, no apparent distress, alert, awake , comfortable Head: atraumatic Ears, Nose, Throat: normal pharynx Neck: normal inspection Respiratory: normal breath sounds Abdomen: normal bowel sounds, soft, non-tender Extremities: right knee edema up to mid thigh Neurologic/Psychiatric: awake, alert, oriented x 3 Skin: rash Current Medications: Current Medications Sig/Ayse Start time Last Medication Dose Route Stop Time Status Admin Acetaminophen 650 MG Q4P PRN 03/10 0800 AC 03/13 PO 2120 Amlodipine Besylate 5 MG DAILY 03/08 1717 AC 03/15 PO 0835 Clobetasol Propionate 1 PRATEEK AT BEDTIME 03/15 2200 AC TOP Colchicine 600 MCG DAILY 03/15 1000 AC 03/15 PO 1002 Colchicine 600 MCG ONCE ONE 03/14 1530 DC 03/14 PO 03/14 1531 1708 Cyanocobalamin 1,000 MCG DAILY 03/08 1717 AC 03/15 PO 0835 Diclofenac Sodium 1 PRATEEK 4 TIMES/DAY 03/09 2230 AC 03/15 TOP 0836 Diphenhydramine HCl 1 PRATEEK TID 03/10 1000 DC 03/15 TOP 0837 Docusate Sodium 100 MG BID 03/08 2200 AC 03/15 PO 0835 Filgrastim 480 MCG DAILY@2100 03/09 2100 AC 03/15 SC 1154 Hydromorphone HCl 1 MG Q4P PRN 03/14 1045 AC IV Loratadine 10 MG DAILY 03/15 1000 AC 03/15 PO 1002 Naproxen 500 MG BID 03/11 1215 AC 03/15 PO 0835 Omeprazole 40 MG DAILY AC 03/09 2230 AC 03/12 PO 0528 Oxycodone HCl 20 MG Q12 03/09 1000 AC 03/12 PO 2141 Polyethylene Glycol 17 GM DAILY 03/08 1723 AC 03/15 PO 0836 Senna/Docusate Sodium 1 TAB AT BEDTIME 03/08 2200 AC 03/14 PO 2123 Triamcinolone 1 PRATEEK DAILY 03/15 1000 AC 03/15 Acetonide TOP 1002 Results Last 24 Hours of Lab Results: Laboratory Tests 03/15 0750 Chemistry Sodium (137 - 145 mmol/L) 137 Potassium (3.5 - 5.1 mmol/L) 4.1 Chloride (98 - 107 mmol/L) 102 Carbon Dioxide (22 - 30 mmol/L) 27 Anion Gap (5 - 16) 8 BUN (9 - 20 mg/dL) 13 Creatinine (0.7 - 1.2 mg/dL) 0.8 Estimated GFR (>60 ml/min) > 60 BUN/Creatinine Ratio (7 - 25 %) 16.3 Magnesium (1.6 - 2.3 mg/dL) 2.1 Total Bilirubin (0.2 - 1.3 mg/dL) 1.0 Direct Bilirubin (< 0.4 mg/dL) 0.4 AST (17 - 59 U/L) 19 ALT (21 - 72 U/L) 52 Alkaline Phosphatase (< 127 U/L) 146 H Total Protein (6.3 - 8.2 g/dL) 4.8 L Albumin (3.5 - 5.0 g/dL) 2.5 L Hematology CBC w Diff MAN DIFF ORDERED WBC (4.8 - 10.8 /CUMM) 2.5 L RBC (4.70 - 6.10 /CUMM) 2.35 L Hgb (14.0 - 18.0 G/DL) 7.9 L Hct (42 - 52 %) 23.2 L MCV (80.0 - 94.0 FL) 98.5 H MCH (27.0 - 31.0 PG) 33.5 H RDW (11.5 - 14.5 %) 15.8 H Plt Count (130 - 400 /CUMM) 120 L MPV (7.4 - 10.4 FL) 6.9 L Gran % (42.2 - 75.2 %) 86.3 H Lymphocytes % (20.5 - 51.1 %) 8.6 L Monocytes % (1.7 - 9.3 %) 0.1 L Eosinophils % (0 - 5 %) 4.9 Basophils % (0.0 - 2.0 %) 0.1 Absolute Granulocytes (1.4 - 6.5 /CUMM) 2.2 Segmented Neutrophils (42.2 - 75.2 %) 80 H Band Neutrophils (0.0 - 5.0 %) 9 H Absolute Lymphocytes (1.2 - 3.4 /CUMM) 0.2 L Lymphocytes (20.5 - 51.1 %) 7 L Absolute Monocytes (0.10 - 0.60 /CUMM) 0 L Eosinophils (0 - 5.0 %) 4 Absolute Eosinophils (0.0 - 0.7 /CUMM) 0.1 Absolute Basophils (0.0 - 0.2 /CUMM) 0 Nucleated RBCs (0.0 - 0.0 /100WBC) 1 H Platelet Estimate (ADEQUATE) VERIFIED BY SMEAR Poikilocytosis 1+ Anisocytosis 1+ PUBS MCHC (33.0 - 37.0 G/DL) 34.0 Assessment/Plan Assessment/Recommendations: Mr. 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 He is doing better. ANC 2200 today with filgrastim. He is afebrile with negative cultures. His right knee pain and symptoms are improving. Rash is stable. Reportedly dermatology has seen patient with paper notes on chart. He will need dermatology and orthopedic follow up as outpatient. He will follow up with me later this week. Patient will call the clinic. Recommendations: 1. Continue filgrastim 480 mcg today and then discontinue 2. Follow up Orthopedic recommendations and as outpatient 3. Dermatology consult as outpatient 4. Follow up within the week of discharge ( or Tuesday) Please call [phone] with any questions or concerns Problem List: 1. Pancytopenia 2. Hairy cell leukemia not having achieved remission 3. Anemia 4. Skin rash 5. Arthritis of knee 6. Pseudogout
--- NOTE | 2017-03-15 13:46 | NUR ---
PATIENT DISCHARGD TO HOME TO SELF CARE. DISCHARGE INSTRUCTION GIVEN AND IV SITE DISCONTINUED. PATIENT VERBALIZED UNDERSTANDING OF INSTRUCTION. SPOUSE AT BEDSIDE FOR DISCHARGE. PATIENT LEFT FLOOR VIA WHELCHAIR FROM DISTRIBUTION.
--- NOTE | 2017-03-16 21:50 | Discharge Summary ---
Visit Information Visit Dates Admission Date: 03/08/17 Discharge Date: 03/15/17 Hospital Course Course Attending Physician: MIESHA CRONIN M.D, MD, [facility] Primary Care Physician: SIENA JUNIOR,[place] Hospital Course: 61-year-old male with past medical history of recently diagnosed hairy cell leukemia, hypertension, arthritis, was sent to emergency by Dr. Kole Dumont, oncologist, for evaluation and management of neutropenic fever. # Neutropenic fever - resolved Patient was refered from the oncology clinic with history of chills, rashes that were itchy, and a lab result of low leukocytes. His ANC upon presentation was 500, and was believed to be secondary to chemotherapy for hairy Cell Leukemia. Cause of the fever was unclear.he received Filgastrim 480 g daily and the target was to reach ANC more than 1500, which was a slow process. Blood and urine cultures were negative. He was started on IV Ceftazidime, and continued his prophylactic antifungal and Acyclovir while in the hospital. Infectious disease service was consulted to help identify source of fever and suggest appropriate management. Hem-Onc service was on board who was closely monitoring the counts and clinical progression. The source of fever was also thought to be his right knee, which is described below. # Pancytopenia - improving Most likely due to chemotherapy. H/H on admission was 7.2/21.0, WBC 0.6 and platelets in 90s. he received total four units of PRBC while in the hospital. His H/H after transfusion became stable. Neupogen continued as above. Patient will follow up in hem-Onc clinic. # Right knee pain/swelling Patient developed right knee swelling and pain on day(night) 2, for which an x- ray was taken which showed small effusion and the swelling was better the other day. At evening time on day 3, whis swelling had significantly swollen and orthopedics service consulted. later his right knee aspiration was done and analysed, which ruled out septic arthritis, or gout. Osteoarthitis and pseudogout was also possiblility. patient was started on Naproxen while keeping a close eye on his platelet status and consulting hematology. There was no significant improvement with only Naproxen so pseudogout was considered the most likely explanation and was started on Colchicine. Patient's condition significantly improved with colchicine. Physical therapy was on board, who cleared him to go home. He needs a follow up with Rheumatology as an outpatient. Orthopedics referral can be considered after visiting Rheumatology service. Also , needs to follow up Lyme titer and Anaplasma PCR. Of note, patient had right elbow/arm swelling on presentation and USG Doppler was negative for DVT. # Hypertension Continue home medication of amlodipine 5 mg daily by mouth. # Skin rash Patient had generalized maculopapular rash that was itchy and had gradually appeared prior to admission. His oncologist thought this could be Allopurinol which was stopped on admission. He received benadryl cream and in three days, the rashes had coleased and was less itchy. This can be followed up with a weld fitter. At the time of discharge, he felt better, was well oriented, and vitals were stable. WBC count was better and requires a follow up at hem-onc clinic. #Diet: Heart healthy #DVT ppx: ALPS only as he is thrombocytopenic #Code status: Full code Complications: # Confusion Patient had a night where he woke up and had to reoriented and the patient felt better. The night after that, he was more confused, pulled his IV lines, and was walking around his room and the castelan with scant clothes on. All this had cleared up by the time he slept again and morning rounds were held. This was attributed to IV pain medication, and IV Benadryl, which was stopped and pain medication titrated accordingly. Allergies: Coded Allergies: Penicillins (UNKNOWN 11/17/16) raspberry (UNKNOWN 03/08/17) strawberry (UNKNOWN 03/08/17) Significant Procedures: Right knee aspiration done on 03/12/2017: 80 mL of yellow turbid fluid was aspirated from the superior lateral aspect of the right knee. The patient tolerated the procedure well. The fluid was sent to the laboratory for analysis. Pertinent Lab Results: Chest x-ray: IMPRESSION: No evidence for acute disease. DICTATED BY: ERIKA FITCH MD DATE/TIME DICTATED:03/08/171309 BIODIESEL ENGINEERING MANAGER:BRITTNEY DATE/TIME TRANSCRIBED:03/08/171309 CT Abd/pelvis: IMPRESSION: No acute abnormality CT scan abdomen and pelvis. Mild splenomegaly. No retroperitoneal bleed or hematoma. DICTATED BY: JOESPH BASSETT MD DATE/TIME DICTATED:03/09/172234 BIODIESEL ENGINEERING MANAGER:BRITTNEY DATE/TIME TRANSCRIBED:03/09/172234 Rt knee x-ray: IMPRESSION: Severe tricompartmental degenerative changes of the right knee. Small suprapatellar joint effusion. DICTATED BY: KISHA RAYGOZA MD DATE/TIME DICTATED:03/09/172158 BIODIESEL ENGINEERING MANAGER:BRITTNEY DATE/TIME TRANSCRIBED:03/09/172158 Disposition Summary Disposition Principal Diagnosis: Neutropenic fever Pseudogout/arthritis Additional Diagnosis: Hairy cell leukemia, HTN, arthritis Discharge Disposition: home or self care Discharge Instructions General Discharge Information Code Status: Full Code Patient's Diet: Heart healthy Patient's Activity: As tolerated Follow-Up Instructions/Appts: Please follow up with your primary care provider and oncologist Dr. Eric within 1 week of discharge. Please see a rheumotologist Dr. Murillo within 1-2 weeks of discharge for your knee pain (Referral provided below). Return to ED if you have persistent fever, chills, or any worsening symtpoms. Medications at Discharge Discharge Medications: Stop taking the following medications: Acyclovir (Acyclovir) 400 MG TABLET ORAL THREE TIMES DAILY Qty = 90 Allopurinol (Allopurinol) 300 MG TABLET ORAL DAILY Levofloxacin (Levofloxacin) 500 MG TABLET ORAL DAILY Qty = 30 Naproxen Sodium (Aleve) 220 MG TABLET ORAL TWICE DAILY Valacyclovir HCl (Valacyclovir) 1,000 MG TABLET ORAL THREE TIMES DAILY Continue taking these medications: Amlodipine Besylate (Amlodipine Besylate) 5 MG TABLET 1 Tablet ORAL DAILY Qty = 30 Comments: Last Taken: 03/15/17 Time: 0900 Albuterol Sulfate (Proair Hfa) 90 MCG HFA.AER.AD 2 Puff Inhale through mouth Q6H as needed for RESPIRATORY Cinnamon Bark (Cinnamon) (Unknown Strength) CAPSULE Unknown Dose ORAL DAILY Clobetasol Propionate (Clobetasol Propionate) 0.05 % CREAM..G. 1 Application On the skin TWICE DAILY Qty = 30 Instructions: apply to affected area(s) Cyanocobalamin (Vitamin B-12) 1,000 MCG TABLET 1 Tablet ORAL DAILY Comments: Last Taken:03/15/17 Time:0900 Britton-3 Fatty Acids/Fish Oil (Fish Oil 1,000 MG Capsule) 340 MG-1,000 MG CAPSULE 1,000 Milligram ORAL DAILY Brook (Brook) (Unknown Strength) CAPSULE Unknown Dose ORAL DAILY Glucosa Cardenas 2KCL/Chondroitin Cardenas (Glucosamine & Chondroitin Cap) 500 MG-400 MG CAPSULE 1 Capsule ORAL THREE TIMES DAILY Lactobacillus Acidophilus (Probiotic) (Unknown Strength) CAPSULE Unknown Dose ORAL DAILY Multivitamin (Multi-Day Vitamins) 1 EACH TABLET 1 Tablet ORAL DAILY Start taking the following new medications: Loratadine (Loratadine) 10 MG TABLET 10 Milligram ORAL DAILY Qty = 30 Refills = 2 Omeprazole (Omeprazole) 20 MG CAPSULE.DR 40 Milligram ORAL DAILY BEFORE BREAKFAST Qty = 30 Refills = 1 Colchicine (Colchicine) 0.6 MG TABLET 600 Microgram ORAL DAILY Qty = 5 No Refills Instructions: TAKE IT FOR 5 MORE DAYS Naproxen (Naproxen) 500 MG TABLET 500 Milligram ORAL TWICE DAILY Qty = 10 No Refills Instructions: TAKE IT FOR 5 MORE DAYS Clobetasol Propionate (Temovate) 0.05 % OINT...G. 1 Application On the skin AT BEDTIME Qty = 1 Refills = 1 Instructions: APPLY TO THE AFFECTED AREA AT NIGHT. Triamcinolone Acetonide (Triamcinolone Acetonide) 0.1 % CREAM..G. 1 Application On the skin DAILY Qty = 1 Refills = 1 Instructions: Apply to the affected area once a day. Copies To: KOLE JUNIOR,GEORGE; SIENA JUNIOR,BROOKLYNN Attending MD Review Statement Documenting Attending: HARINDER MARK MD
--- NOTE | 2017-03-25 11:38 | Cons- Dermatology ---
General Information and HPI Consulting Request Date of Consult: 03/11/17 Requested By: HARINDER MARK MD Reason for Consult: status post chemo in early February now with itchy eruption:asked to consult. 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 1 PRATEEK TOP BID SKIN (Reported) apply to affected area(s) Clobetasol Propionate (Temovate) 0.05 % OINT...G. 1 PRATEEK TOP AT BEDTIME SKIN RASH APPLY TO THE AFFECTED AREA AT NIGHT. Colchicine 0.6 MG TABLET 600 MCG PO DAILY KNEE PAIN TAKE IT FOR 5 MORE DAYS Cyanocobalamin (Vitamin B-12) 1,000 MCG TABLET 1 TAB PO DAILY SUPPLEMENT ( Reported) Brook (Unknown Strength) CAPSULE (Unknown Dose) PO DAILY SUPPLEMENT ( Reported) Glucosa Cardenas 2KCL/Chondroitin Cardenas (Glucosamine & Chondroitin Cap) 500 MG-400 MG CAPSULE 1 CAP PO TID SUPPLEMENT (Reported) Lactobacillus Acidophilus (Probiotic) (Unknown Strength) CAPSULE (Unknown Dose ) PO DAILY SUPPLEMENT (Reported) Loratadine 10 MG TABLET 10 MG PO DAILY ITCHINESS Multivitamin (Multi-Day Vitamins) 1 EACH TABLET 1 TAB PO DAILY SUPPLEMENT ( Reported) Naproxen 500 MG TABLET 500 MG PO BID KNEE TAKE IT FOR 5 MORE DAYS [place]-3 Fatty Acids/Fish Oil (Fish Oil 1,000 MG Capsule) 340 MG-1,000 MG CAPSULE 1,000 MG PO DAILY SUPPLEMENT (Reported) Omeprazole 20 MG CAPSULE.DR 40 MG PO DAILY AC HEARTBURN Triamcinolone Acetonide 0.1 % CREAM..G. 1 PRATEEK TOP DAILY SKIN RASH Apply to the affected area once a day. 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 Home Who Do You Live With? spouse Services at Home: None Primary Language: [place] Smoking Status: Never Smoked ETOH Use: occasional use (last use Tuesday) Illicit Drug Use: denies illicit drug use Living Will? no Functional Ability ADLs Independent: dressing, eating, toileting, bathing. Ambulation: independent IADLs Independent: shopping, housework, finances, food prep, telephone, transportation , medication admin. 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 status post chemo in early February now with itchy eruption asked to consult probable chemo drug eruption overall better today take juan or zytec daily, Triamcinolone 0.1% Cream every morning apply liberally(order a pound jar), Clobetasol ointment at night apply liberally (order qty6 60g tubes), If worse have surgery do a small skin biopsy also has swelling right knee being worked up by team. Physical Exam: Physical Exam arms legs torso blanchable erythemia Physical Exam General Appearance: well developed/nourished Assessment/Plan Assessment/Plan probable chemo drug eruption overall better today take juan or zytec daily, Triamcinolone 0.1% Cream every morning apply liberally(order a pound jar), Clobetasol ointment at night apply liberally (order qty6 60g tubes), If worse have surgery do a small skin biopsy also has swelling right knee being worked up by team. Call if needs anything else. Consult Acknowledgment - Thank you for your consult request.
== END 2017-03-15 14:05 | DRG 660 ==
LOC: ERH 12:18 → 2NA 14:39 → ERHI 14:39 → 2NA 14:39 → ENRESERV 15:30 → ENTRNSPT 15:57 → EDTRNSPTTYP 16:19 → 2NA 16:30 → CMPTRNSPT 16:43 → 2NA 03-09 12:40 → ENPENDDIS 03-15 10:46 → 2NA 03-15 14:05
PROVIDERS: Emergency Medicine; Student in an Organized Health Care Education/Training Program; ADMIT Internal Medicine
PROC: 30233N1 Transfusion of Nonautologous Red Blood Cells into Peripheral Vein, Percutaneous Approach (ICD-10-PCS; 2017-03-08)
PROC: 0S9C3ZX Drainage of Right Knee Joint, Percutaneous Approach, Diagnostic (ICD-10-PCS; principal; 2017-03-11)
DX: D70.9 Neutropenia, unspecified (principal); D64.81 Anemia due to antineoplastic chemotherapy; C91.40 Hairy cell leukemia not having achieved remission; I10 Essential (primary) hypertension; R50.81 Fever presenting with conditions classified elsewhere; E66.9 Obesity, unspecified; Z68.31 Body mass index [BMI] 31.0-31.9, adult; T45.1X5A Adverse effect of antineoplastic and immunosuppressive drugs, initial encounter; M62.830 Muscle spasm of back; K59.00 Constipation, unspecified; M17.11 Unilateral primary osteoarthritis, right knee; M11.261 Other chondrocalcinosis, right knee; L27.1 Localized skin eruption due to drugs and medicaments taken internally
CPT/HCPCS: 2NAP; 86618; 87075; 87798; 36415; 73560-RT; 74176; 81001; 82436; 83010; 86920; 87040; 87045; 87070; 87086; 93005; 93010; 96374; 96375; 99291; J0713; J1200; J1442; J2405; J3370; J7040; P9016